=== PATIENT | female | born 1940 | race Caucasian/White ===

== ENCOUNTER 2018-07-05 08:57 | Emergency (ER) ==
--- NOTE | 2018-07-05 09:16 | ED.PDOC ---
General ED Provider: Dr. RICK MOISE Chief Complaint: Fall Stated Complaint: Fell 1 week ago and dealing with discomfort in bilat hips. This AM had increased pain in Lt hip and could not get in shower due to pain. Denies Low back pain or other symmptoms. Time Seen by Physician: 09:10 Mode of Arrival: Walk-In Information Source: Patient Exam Limitations: No limitations Primary Care Provider: EVELYN STINSON Nursing and Triage Documentation Reviewed and Agree: Yes Does patient meet sepsis criteria?: No System Inflammatory Response Syndrome: Not Applicable Sepsis Protocol: For patient's 13 years and over: Temp is 96.8 and below OR 101 and greater Pulse >90 BPM Resp >20/minute Acutely Altered Mental Status Are patient's symptoms suggestive of a new infection, such as: -Pneumonia -Skin, Soft Tissue -Endocarditis -UTI -Bone, Joint Infection -Implantable Device -Acute Abdominal Infection -Wound Infection -Meningitis -Blood Stream Catheter Infection -Unknown Musculoskeletal Complaint Exam - Hip/Pelvis Complaint/Exam Location of Pain: Reports: Right, Left Mechanism of Injury: Reports: Trauma Onset/Duration: 1 week Symptoms Are: Worse Initial Severity: Mild Current Severity: Moderate Location: Reports: Diffuse Character: Reports: Sharp, Aching Aggravating: Reports: Movement Alleviating: Reports: Rest Associated Signs and Symptoms: Denies: Swelling, Redness, Bruising, Fever, Weakness, Dizziness, Syncope, Abdominal pain, Knee pain Related History: Denies: Similar episode Septic Arthritis Risk Factors: Reports: None Rotation: External Pelvis Palpation: Stable Hip/Pelvis Findings: Present: Extremity shortened (slightly with external rotation /increase Lt hip pain with hip flexion and lat trochanteric palpation and pelvic motion) Tenderness: Present: Left, PSIS, Greater Trochanter Range of Motion Limited In: Present: Flexion, Internal rotation NV Bundle Intact Distal to Injury: Yes Differential Diagnoses: Arthritis, Contusion, Fracture, Strain Review of Systems - Review Of Systems Constitutional: Reports: No symptoms Eyes: Reports: No symptoms Ears, Nose, Mouth, Throat: Reports: No symptoms Respiratory: Reports: No symptoms Cardiac: Reports: No symptoms GI: Reports: No symptoms : Reports: No symptoms Musculoskeletal: Reports: No symptoms, Joint pain Skin: Reports: No symptoms Neurological: Reports: No symptoms Endocrine: Reports: No symptoms Hematologic/Lymphatic: Reports: No symptoms All Other Systems: Reviewed and Negative Past Medical History - Past Medical History Endocrine: Reports: DM 2 Cardiovascular: Reports: [place], Hypertension Respiratory: Reports: None Hematological: Reports: None Gastrointestinal: Reports: None Genitourinary: Reports: None Neuro/Psych: Reports: None Musculoskeletal: Reports: Arthritis, Joint Pain Cancer: Reports: None Last Menstrual Period: N/A - Surgical History General Surgical History: Reports: Cholecystectomy, Orthopedic (Knee replacement ) - Family History Family History: Reports: Unknown - Social History Smoking Status: Never smoker Hx Substance Use: No Alcohol Screening: None Physical Exam - Physical Exam Appearance: Ill-appearing, Obese Ill-appearing: None Pain Distress: Moderate Eyes: ALYSSA, EOMI, Conjunctiva clear ENT: Ears normal, Nose normal, Oropharynx normal Neck: Supple Respiratory: Airway patent, Breath sounds clear, Breath sounds equal, Respirations nonlabored Cardiovascular: RRR, Pulses normal, No rub, No murmur GI/: Soft, Nontender, No masses, Bowel sounds normal, No Organomegaly Musculoskeletal: Limited ROM (Lt Hip flexion , Lt foot externally rotated) Skin: Warm, Dry, Normal color Neurological: Sensation intact, Motor intact, Reflexes intact, Cranial nerves intact, Alert, Oriented Psychiatric: Affect appropriate, Mood appropriate Critical Care Note - Critical Care Note Total Time (mins): 0 Course - Course Hematology/Chemistry: 07/05/18 09:40 07/05/18 10:15 Orders, Labs, Meds: Lab Review 07/05/18 07/05/18 07/05/18 09:40 09:40 10:15 WBC 11.90 H RBC 5.14 Hgb 14.7 Hct 45.8 MCV 89.1 MCH 28.6 MCHC 32.1 RDW Coeff of Jaison 14.3 Plt Count 285 Immature Gran % (Auto) 1.2 Neut % (Auto) 74.2 Lymph % (Auto) 16.3 [place] % (Auto) 5.8 Eos % (Auto) 2.1 Baso % (Auto) 0.4 Immature Gran # (Auto) 0.1 Neut # (Auto) 8.8 H Lymph # (Auto) 1.9 [place] # (Auto) 0.7 Eos # (Auto) 0.3 Baso # (Auto) 0.1 Clumped Platelets 1 Anisocytosis Not present RBC Morph Comment Normal Sodium Cancelled 143.0 Potassium Cancelled 4.14 Chloride Cancelled 103.2 Carbon Dioxide Cancelled 30.8 H Anion Gap Cancelled 13.14 BUN Cancelled 15.9 Creatinine Cancelled 0.85 Estimated GFR (MDRD) Cancelled 65.00 BUN/Creatinine Ratio Cancelled 18.70 Glucose Cancelled 118.4 H Calcium Cancelled 9.63 Total Bilirubin Cancelled 0.33 AST Cancelled 19.0 ALT Cancelled 12.9 Alkaline Phosphatase Cancelled 84.1 Total Protein Cancelled 7.49 Albumin Cancelled 4.16 Globulin Cancelled 3.33 Albumin/Globulin Ratio Cancelled 1.24 Orders Category Date Time Status EKG-(ED ONLY) Stat CARDIO 07/05/18 09:29 Completed CBC W/ AUTO DIFF Stat LAB 07/05/18 09:40 Completed COMPREHENSIVE METABOLIC PANEL Routine LAB 07/05/18 10:15 Completed RBC MORPHOLOGY Stat LAB 07/05/18 09:40 Completed UA [URINALYSIS C & S IF INDICATED] Stat LAB 07/05/18 11:43 Uncollected Ketorolac Tromethamine [Toradol] MEDS 07/05/18 11:17 Discontinued 30 mg IM ONCE STA CT PELVIS W/O CONTRAST Stat RADS 07/05/18 09:22 Completed Medications Discontinued Medications Generic Name Dose Route Start Last Admin Trade Name Freq PRN Reason Stop Dose Admin Ketorolac Tromethamine 30 mg 07/05/18 11:17 07/05/18 11:38 Toradol IM 07/05/18 11:18 30 mg ONCE STA Administration Vital Signs: Temp Pulse Resp BP Pulse Ox 07/05/18 08:57 97.0 F L 67 18 153/53 H 98 Departure - Departure Time of Disposition: 11:45 Disposition: HOME SELF-CARE Discharge Problem: Contusion of hip, left Instructions: Hip Pain (ED) Condition: Good Pt referred to PMD for follow-up: Yes (1 wk) IPMP verified?: No Additional Instructions: Apply ice to area of discomfort in lt hip for 20-30 min three times daily Take Ibuprofen for pain See PCP next week Use walker and cane for assisted ambulation Prescriptions: Ibuprofen 600 mg PO QID PRN #30 tablet PRN Reason: Hip pain Allergies/Adverse Reactions: Allergies morphine Adverse Reaction (Verified 04/23/16 16:14) Home Medications: Ambulatory Orders Isosorbide Mononitrate [Isosorbide Mononitrate ER] 60 mg PO DAILY 02/22/14 Losartan/Hydrochlorothiazide [Losartan-Hctz 100-12.5 mg Tab] 1 each PO DAILY Pravastatin Sodium [Pravachol] 40 mg PO BEDTIME 03/14/14 Amlodipine Besylate [Norvasc] 5 mg PO BID #60 tablet 04/11/14 Aspirin [Aspirin EC] 81 mg PO DAILYWM 10/09/14 Oxybutynin Chloride [Ditropan Xl] 5 mg PO DAILY 10/09/14 Hydralazine HCl 25 mg PO Q12H #60 tablet 04/28/16 Nitroglycerin [Nitrostat] 0.4 mg SL Q5MIN X 3 DOSES PRN #60 tab.subl 04/28/16 Bimatoprost Opth [Lumigan 0.03%] 0.01 drop PO DAILY 07/05/18 Brinzolamide/Brimonidine Tart [Simbrinza 1%-0.2% Eye Drops] 1 drop OP DAILY 12/14 Ibuprofen 600 mg PO QID PRN #30 tablet 07/05/18 Insulin NPH Human Isophane [Novolin N] 50 units SUBCUT BID 07/05/18 Disposition Discussed With: Patient, Family
[2018-07-05 09:22] VITALS: BP 153/53; TEMP 97; BMI 42.0
--- NOTE | 2018-07-05 10:17 | CT ---
EXAM: CT of the pelvis without contrast History: Left hip pain and trauma. Comparison: CT abdomen pelvis 04/30/2014 Technique: Multiplanar CT images through the pelvis were obtained without the administration of IV c ontrast Findings: Atherosclerotic vascular calcifications. Bladder is moderate to severely distended. Ther e is no bladder wall thickening. No pelvic fluid. Moderate stool within the rectum. No acute fracture or dislocation. Mild to moderate narrowing of bilateral hip joints. Surrounding s oft tissues demonstrate no acute findings. Impression: 1. No acute osseous abnormality. 2. 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 3. Moderate to severe bladder distension
[2018-07-05] MEDS: TORADOL IM STA (11:38)
== END 2018-07-05 12:15 | disposition home or self-care (01) ==
LOC: ED 08:57
DX: S70.02XA Contusion of left hip, initial encounter (principal); W19.XXXA Unspecified fall, initial encounter; E11.9 Type 2 diabetes mellitus without complications; I25.2 Old myocardial infarction; I10 Essential (primary) hypertension
CPT/HCPCS: 36415; 80053; 85008; 85025; 93005; 93010; 96372; 99283

== ENCOUNTER 2018-08-14 20:44 | Outpatient (CLI) | END 2018-08-14 20:45 | disposition home or self-care (01) | LOC: NONPT 20:44 | PROVIDERS: ATTEND Internal Medicine | DX: E11.9 Type 2 diabetes mellitus without complications (principal) | CPT/HCPCS: 83036 ==

== ENCOUNTER 2018-11-10 11:32 | Outpatient (CLI) ==
[2018-11-10 18:36] VITALS: BMI 39.5
== END 2018-11-10 11:40 | disposition critical access hospital (66) ==
LOC: AMBL 11:32
PROVIDERS: ATTEND Emergency Medicine
DX: R73.9 Hyperglycemia, unspecified (principal); R11.10 Vomiting, unspecified; R53.1 Weakness; R68.89 Other general symptoms and signs; R00.0 Tachycardia, unspecified

== ENCOUNTER 2018-11-10 11:44 | Inpatient (IN) ==
--- NOTE | 2018-11-10 13:01 | ED.PDOC ---
General ED Provider: Dr. RICK MOISE Chief Complaint: Non-specific Complaint Stated Complaint: Nausea and vomiting/ Vomiting since last evening after eatting baked chicken. Has not vomited recently.Also complains of chronic diarrhea and coughing episodes daily in the AM. Glucose elevated 290 Time Seen by Physician: 12:30 Mode of Arrival: Stretcher Information Source: Patient Primary Care Provider: EVELYN BURRELL Nursing and Triage Documentation Reviewed and Agree: Yes Does patient meet sepsis criteria?: No System Inflammatory Response Syndrome: Not Applicable Sepsis Protocol: For patient's 13 years and over: Temp is 96.8 and below OR 101 and greater Pulse >90 BPM Resp >20/minute Acutely Altered Mental Status Are patient's symptoms suggestive of a new infection, such as: -Pneumonia -Skin, Soft Tissue -Endocarditis -UTI -Bone, Joint Infection -Implantable Device -Acute Abdominal Infection -Wound Infection -Meningitis -Blood Stream Catheter Infection -Unknown GI Complaint Exam - Vomiting/Diarrhea Complaint/Exam Onset/Duration: last night Symptoms Are: Resolved Episodes of Vomiting over last 24 Hours: 6 Episodes of Diarrhea Over Last 24 Hours: 2 Initial Severity: Moderate Current Severity: Mild Character of Vomiting: Reports: Retching Character of Diarrhea: Reports: Watery Aggravating: Reports: Food Alleviating: Reports: None Associated Signs and Symptoms: Reports: Light-headedness, Cramping Related History: Reports: Similar episode Review of Systems - Review Of Systems Constitutional: Reports: No symptoms Eyes: Reports: No symptoms Ears, Nose, Mouth, Throat: Reports: No symptoms Respiratory: Reports: No symptoms Cardiac: Reports: No symptoms GI: Reports: No symptoms, Diarrhea, Nausea, Vomiting : Reports: No symptoms Musculoskeletal: Reports: No symptoms Skin: Reports: No symptoms Neurological: Reports: No symptoms Endocrine: Reports: No symptoms Hematologic/Lymphatic: Reports: No symptoms All Other Systems: Reviewed and Negative Past Medical History - Past Medical History Endocrine: Reports: DM 2 Cardiovascular: Reports: [place], Hypertension Respiratory: Reports: None Hematological: Reports: None Gastrointestinal: Reports: None Genitourinary: Reports: None Neuro/Psych: Reports: None Musculoskeletal: Reports: Arthritis, Joint Pain Cancer: Reports: None Last Menstrual Period: UNKNOWN - Surgical History General Surgical History: Reports: Cholecystectomy, Orthopedic (Knee replacement ) - Family History Family History: Reports: Unknown - Social History Smoking Status: Never smoker Hx Substance Use: No Alcohol Screening: None Physical Exam - Physical Exam Appearance: Ill-appearing, Obese Ill-appearing: Mild Pain Distress: None Eyes: ALYSSA, EOMI, Conjunctiva clear ENT: Ears normal, Nose normal, Oropharynx normal Neck: Supple Respiratory: Breath sounds diminished Cardiovascular: RRR, Pulses normal, No rub, No murmur GI/: Soft, Nontender, Bowel sounds normal, No Organomegaly Musculoskeletal: Normal strength, ROM intact, No edema, No calf tenderness Skin: Warm, Dry, Normal color Neurological: Sensation intact, Motor intact, Reflexes intact, Cranial nerves intact, Alert, Oriented Psychiatric: Affect appropriate Physician Notification - Case Discussed Physician Notified: dr burrell Time of Notification: 17:45 (discu case-admit) Critical Care Note - Critical Care Note Total Time (mins): 0 Course - Course Hematology/Chemistry: 11/10/18 12:59 11/10/18 12:59 Orders, Labs, Meds: Lab Review 11/10/18 11/10/18 11/10/18 12:59 12:59 12:59 WBC 24.65 H RBC 4.67 Hgb 13.4 Hct 41.2 MCV 88.2 MCH 28.7 MCHC 32.5 RDW Coeff of Jaison 14.0 Plt Count 291 Immature Gran % (Auto) 0.6 Neut % (Auto) 91.2 Lymph % (Auto) 3.9 L [place] % (Auto) 4.1 Eos % (Auto) 0.0 Baso % (Auto) 0.2 Immature Gran # (Auto) 0.1 Neut # (Auto) 22.5 H Lymph # (Auto) 1.0 [place] # (Auto) 1.0 Eos # (Auto) 0.0 Baso # (Auto) 0.1 Sodium 139.4 Potassium 3.73 Chloride 105.9 Carbon Dioxide 24.9 Anion Gap 12.33 BUN 18.7 H Creatinine 0.76 Estimated GFR (MDRD) 73.00 BUN/Creatinine Ratio 24.60 Glucose 278.1 H Lactic Acid Calcium 8.81 Total Bilirubin 0.59 AST 24.9 ALT 15.3 Alkaline Phosphatase 66.1 Troponin I 0.032 NT-Pro-B Natriuret Pep 1540.000 H Total Protein 6.23 L Albumin 3.49 L Globulin 2.74 Albumin/Globulin Ratio 1.27 Lipase 25.8 Procalcitonin 3.93 Urine Color Urine Clarity Urine pH Ur Specific [place] Urine Protein Urine Glucose (UA) Urine Ketones Urine Blood Urine Nitrite Urine Bilirubin Urine Urobilinogen Ur Leukocyte Esterase Urine Microscopic RBC Urine Microscopic WBC Ur Squamous Epith Cells Ur Renal Epithelial Cell Amorphous Sediment Urine Bacteria 11/10/18 11/10/18 13:38 15:56 WBC RBC Hgb Hct MCV MCH MCHC RDW Coeff of Jaison Plt Count Immature Gran % (Auto) Neut % (Auto) Lymph % (Auto) [place] % (Auto) Eos % (Auto) Baso % (Auto) Immature Gran # (Auto) Neut # (Auto) Lymph # (Auto) [place] # (Auto) Eos # (Auto) Baso # (Auto) Sodium Potassium Chloride Carbon Dioxide Anion Gap BUN Creatinine Estimated GFR (MDRD) BUN/Creatinine Ratio Glucose Lactic Acid 1.99 Calcium Total Bilirubin AST ALT Alkaline Phosphatase Troponin I NT-Pro-B Natriuret Pep Total Protein Albumin Globulin Albumin/Globulin Ratio Lipase Procalcitonin Urine Color Yellow Urine Clarity Cloudy Urine pH 5.0 Ur Specific [place] 1.020 Urine Protein 1+ Urine Glucose (UA) 1+ Urine Ketones 2+ Urine Blood Negative Urine Nitrite Positive Urine Bilirubin Negative Urine Urobilinogen 0.2 Ur Leukocyte Esterase Trace Urine Microscopic RBC 5-10 Urine Microscopic WBC 5-10 Ur Squamous Epith Cells 0-2 Ur Renal Epithelial Cell 0-2 Amorphous Sediment 2+ Urine Bacteria 2+ Orders Category Date Time Status ADMIT PATIENT INPATIENT .TO [facility] (MONITORED BED) ADMISSION 11/10/18 17: 55 Active ABG DRAW REQUEST Stat CARDIO 11/10/18 17:41 Ordered EKG-(ED ONLY) Stat CARDIO 11/10/18 12:39 Completed NEBULIZER TREATMENT Routine CARDIO 11/10/18 17:45 Ordered OXYGEN Routine CARDIO 11/10/18 17:55 Ordered ACTIVITY .BR with BRP CARE 11/10/18 17:55 Ordered BLOOD GLUCOSE MONITORING 0630,1100,1700,2100 CARE 11/10/18 17:57 Ordered C-DIFF MONITORING (NURSING) BID CARE 11/10/18 17:48 Ordered GIVE HS SNACK 2100 CARE 11/10/18 17:57 Ordered INTAKE & OUTPUT Q8HR CARE 11/10/18 17:54 Ordered INTAKE & OUTPUT Q8HR CARE 11/10/18 17:55 Ordered TELEMETRY MONITORING TELE CARE 11/10/18 17:55 Active VITAL SIGNS Q4HR CARE 11/10/18 17:55 Ordered ADA 1800 JUDI. DIET DIETARY 11/10/18 Dinner Ordered HS SNACK DIETARY 11/10/18 Dinner Ordered IV [ED IV/MEDIPORT/POWERPORT] .ONCE EMERGENCY 11/10/18 12:39 Active ABG Stat LAB 11/10/18 17:41 Ordered BLOOD CULTURE (ED ONLY) Stat LAB 11/10/18 15:56 Received C. DIFFICILE Routine LAB 11/10/18 17:47 Uncollected CBC W/ AUTO DIFF DAILY@0600 LAB 11/11/18 06:00 Ordered CBC W/ AUTO DIFF DAILY@0600 LAB 11/12/18 06:00 Ordered CBC W/ AUTO DIFF Stat LAB 11/10/18 12:59 Completed CMP [COMPREHENSIVE METABOLIC PANEL] Stat LAB 11/10/18 12:59 Completed COMPREHENSIVE METABOLIC PANEL DAILY@0600 LAB 11/11/18 06:00 Ordered COMPREHENSIVE METABOLIC PANEL DAILY@0600 LAB 11/12/18 06:00 Ordered LACTIC ACID Stat LAB 11/10/18 15:56 Completed LIPASE Stat LAB 11/10/18 12:59 Completed NT-PROBNP Stat LAB 11/10/18 12:59 Completed PROCALCITONIN Stat LAB 11/10/18 12:59 Completed SPUTUM CULTURE Stat LAB 11/10/18 17:51 Uncollected TROPONIN I Stat LAB 11/10/18 12:59 Completed UA [URINALYSIS C & S IF INDICATED] Stat LAB 11/10/18 13:38 Completed URINE CULTURE Stat LAB 11/10/18 13:46 Received 0.9 % Sodium Chloride [Saline Flush] MEDS 11/10/18 12:39 Ordered 1 syr IVF PRN PRN Acetaminophen [Tylenol] MEDS 11/10/18 17:55 Ordered 650 mg PO Q4H PRN Amlodipine Besylate [Norvasc] MEDS 11/10/18 21:00 Ordered 5 mg PO BID Aspirin [Aspirin EC] MEDS 11/11/18 08:00 Ordered 81 mg PO DAILYWM Aztreonam [Azactam] 1 gm MEDS 11/10/18 21:00 Ordered 0.9 % Sodium Chloride [Sodium Chloride] 50 ml IV Q8HR Aztreonam [Azactam] 2 gm MEDS 11/10/18 17:42 Ordered 0.9 % Sodium Chloride [Sodium Chloride] 100 ml IV ONCE Bimatoprost Opth [Lumigan 0.03%] MEDS 11/10/18 21:00 Ordered 0.01 drop OP BEDTIME Brinzolamide/Brimonidine Tart [Simbrinza 1%-0.2% Eye MEDS 11/10/18 21:00 Ordered Drops] 1 drop OP TID Ceftriaxone Sodium [Rocephin] MEDS 11/10/18 16:50 Discontinued 1 gm .ROUTE .STK-MED ONE Ceftriaxone Sodium [Rocephin] 1 gm MEDS 11/11/18 09:00 Ordered 0.9 % Sodium Chloride [Sodium Chloride] 50 ml IV DAILY Ceftriaxone Sodium [Rocephin] 1 gm MEDS 11/10/18 16:46 Discontinued 0.9 % Sodium Chloride [Sodium Chloride] 50 ml IV ONCE Guaifenesin [Mucinex] MEDS 11/10/18 17:52 Stat 600 mg PO ONCE STA Hydralazine HCl [Hydralazine HCl] MEDS 11/10/18 18:00 Ordered 25 mg PO Q12H Ibuprofen [Motrin] MEDS 11/10/18 18:00 Ordered 600 mg PO QID PRN Ipratropium/Albuterol Neb [Duoneb] MEDS 11/10/18 18:00 Ordered 1 vial NEB RTQ6H Isosorbide Mononitrate [Isosorbide Mononitrate ER] MEDS 11/11/18 09:00 Ordered 60 mg PO DAILY Lisinopril/Hydrochlorothiazide [Lisinopril-Hctz 10-12.5 MEDS 11/11/18 09:00 Ordered mg Tab] 1 each PO DAILY Losartan/Hydrochlorothiazide [Losartan-Hctz 100-12.5 mg MEDS 11/11/18 09:00 Ordered Tab] 1 each PO DAILY NPH, Human Insulin Isophane [Humulin N] MEDS 11/10/18 21:00 Ordered 50 units SUBCUT BID Nitroglycerin [Nitrostat] MEDS 11/10/18 18:00 Ordered 0.4 mg SL Q5MIN X 3 DOSES PRN Ondansetron HCl/Pf [Zofran 4 mg/2 ml] MEDS 11/10/18 17:45 Discontinued 4 mg IVP ONCE STA Ondansetron HCl/Pf [Zofran 4 mg/2 ml] MEDS 11/10/18 17:55 Ordered 4 mg IVP Q6H PRN Oxybutynin Chloride [Ditropan Xl] MEDS 11/11/18 09:00 Ordered 5 mg PO DAILY Potassium Chloride in 0.9%NaCl [Sodium Chloride 0.9%- MEDS 11/10/18 18:00 Ordered KCl 20 Meq] 1,000 ml IV 70 mls/hr Pravastatin Sodium [Pravachol] MEDS 11/10/18 21:00 Ordered 40 mg PO BEDTIME RESUSCITATION STATUS Routine OTHERS 11/10/18 17:54 Ordered CHEST, 2 VIEWS PA & LAT Stat RADS 11/10/18 12:40 Completed Medications Generic Name Dose Route Start Last Admin Trade Name Freq PRN Reason Stop Dose Admin Acetaminophen 650 mg 11/10/18 17:55 Tylenol PO Q4H PRN Temp above 101 deg or pain Albuterol/Ipratropium 1 vial 11/10/18 18:00 Duoneb NEB RTQ6H SUKHJINDER Amlodipine Besylate 5 mg 11/10/18 21:00 Norvasc PO BID SUKHJINDER Aspirin 81 mg 11/11/18 08:00 Aspirin Ec PO DAILYWM SUKHJINDER Bimatoprost 0.01 drop 11/10/18 21:00 Lumigan 0.03% OP BEDTIME SUKHJINDER Aztreonam 2 gm/ Sodium 100 mls @ 100 mls/hr 11/10/18 17:42 Chloride IV 11/10/18 18:41 ONCE STA Ceftriaxone Sodium 1 gm/ 50 mls @ 75 mls/hr 11/11/18 09:00 Sodium Chloride IV 11/14/18 08:59 DAILY SUKHJINDER Potassium Chloride/Sodium Chloride 1,000 mls @ 70 mls/hr 11/10/18 18:00 Sodium Chloride 0.9%-Kcl 20 Meq IV .[id number] SUKHJINDER Aztreonam 1 gm/ Sodium 50 mls @ 75 mls/hr 11/10/18 21:00 Chloride IV 11/13/18 20:59 Q8HR SUKHJINDER Ibuprofen 600 mg 11/10/18 18:00 Motrin PO QID PRN Fever >101 Insulin Human NPH unit 11/10/18 21:00 Humulin N SUBCUT BID SUKHJINDER Nitroglycerin 0.4 mg 11/10/18 18:00 Nitrostat SL Q5MIN X 3 DOSES PRN chest pain Non-Formulary Medication 1 drop 11/10/18 21:00 Brinzolamide/Brimonidine Tart [Simbrinza 1%-0.2% Eye Drops] OP TID SUKHJINDER Non-Formulary Medication 25 mg 11/10/18 18:00 Hydralazine Hcl [Hydralazine Hcl] PO Q12H SUKHJINDER Non-Formulary Medication 60 mg 11/11/18 09:00 Isosorbide Mononitrate [Isosorbide Mononitrate Er] PO DAILY SUKHJINDER Non-Formulary Medication 1 each 11/11/18 09:00 Lisinopril/Hydrochlorothiazide [Lisinopril-Hctz 10-12.5 Mg Tab] PO DAILY SUKHJINDER Non-Formulary Medication 1 each 11/11/18 09:00 Losartan/Hydrochlorothiazide [Losartan-Hctz 100-12.5 Mg Tab] PO DAILY SUKHJINDER Ondansetron HCl 4 mg 11/10/18 17:55 Zofran 4 Mg/2 Ml IVP Q6H PRN Nausea or vomiting Oxybutynin Chloride 5 mg 11/11/18 09:00 Ditropan Xl PO DAILY [facility] Pravastatin Sodium 40 mg 11/10/18 21:00 Pravachol PO BEDTIME SUKHJINDER Sodium Chloride 1 syr 11/10/18 12:39 11/10/18 16:59 Saline Flush IVF 1 syr PRN PRN Administration To flush IV Discontinued Medications Generic Name Dose Route Start Last Admin Trade Name Freq PRN Reason Stop Dose Admin Guaifenesin 600 mg 11/10/18 17:52 Mucinex PO 11/10/18 17:53 ONCE STA Ceftriaxone Sodium 1 gm/ 50 mls @ 75 mls/hr 11/10/18 16:46 11/10/18 16:58 Sodium Chloride IV 11/10/18 17:25 75 mls/hr ONCE STA Administration Ondansetron HCl 4 mg 11/10/18 17:45 Zofran 4 Mg/2 Ml IVP 11/10/18 17:46 ONCE STA Vital Signs: Temp Pulse Resp BP Pulse Ox 11/10/18 11:46 99.0 F 88 20 128/56 L 93 L Departure - Departure Time of Disposition: 17:45 Disposition: HOME SELF-CARE Discharge Problem: Vomiting, UTI (urinary tract infection), RLL pneumonia, Diabetes mellitus Condition: Fair Pt referred to PMD for follow-up: No IPMP verified?: No Allergies/Adverse Reactions: Allergies morphine Adverse Reaction (Verified 11/10/18 11:54) Home Medications: Ambulatory Orders Isosorbide Mononitrate [Isosorbide Mononitrate ER] 60 mg PO DAILY 02/22/14 Losartan/Hydrochlorothiazide [Losartan-Hctz 100-12.5 mg Tab] 1 each PO DAILY Pravastatin Sodium [Pravachol] 40 mg PO BEDTIME 03/14/14 Amlodipine Besylate [Norvasc] 5 mg PO BID #60 tablet 04/11/14 Aspirin [Aspirin EC] 81 mg PO DAILYWM 10/09/14 Oxybutynin Chloride [Ditropan Xl] 5 mg PO DAILY 10/09/14 Hydralazine HCl 25 mg PO Q12H #60 tablet 04/28/16 Nitroglycerin [Nitrostat] 0.4 mg SL Q5MIN X 3 DOSES PRN #60 tab.subl 04/28/16 Bimatoprost Opth [Lumigan 0.03%] 0.01 drop OP BEDTIME 07/05/18 Brinzolamide/Brimonidine Tart [Simbrinza 1%-0.2% Eye Drops] 1 drop OP TID Ibuprofen 600 mg PO QID PRN #30 tablet 07/05/18 Insulin NPH Human Isophane [Novolin N] 50 units SUBCUT BID 07/05/18 Lisinopril/Hydrochlorothiazide [Lisinopril-Hctz 10-12.5 mg Tab] 1 each PO DAILY 11/10/18 Disposition Discussed With: Patient, Family
--- NOTE | 2018-11-10 13:42 | DI ---
EXAM: Two view(s) chest. HISTORY: Shortness of breath. COMPARISON: Congestion. TECHNIQUE: Two view(s) of the chest. FINDINGS: There is a left-sided dual lead cardiac pacer. A hiatal hernia is noted. Lungs: The lung voulmes are normal. Interstitial prominence is seen bilaterally. There is a focal consolidation in the right lower l obe. There are no suspicious nodules. There is no pneumothorax. Cardiovascular: The heart is enlarged. The pulmonary vasculature is within normal limits.. The aorta is unremarkable. Cristela/Mediastinum: Normal. Osseous structures. Normal for age. IMPRESSION: 1. Right lower lobe consolidation, likely due to pneumonia. Correlate with history and symptoms. 2. Cardiomegaly. 3. Mild interstitial prominence which may be due to edema.
[2018-11-10] MEDS ORDERED: ROCEPHIN 1 GM in SODIUM CHLORIDE 50 ML IV STA (16:46)
[2018-11-10] MEDS ORDERED: ROCEPHIN ONE (16:50)
[2018-11-10] MEDS ORDERED: AZACTAM 2 GM in SODIUM CHLORIDE 100 ML IV STA (17:42)
[2018-11-10] MEDS ORDERED: ZOFRAN 4 MG/2 ML IVP STA (17:45)
[2018-11-10] MEDS ORDERED: MUCINEX PO STA (17:52)
[2018-11-10] MEDS ORDERED: TYLENOL PO PRN (17:55)
[2018-11-10] MEDS ORDERED: ZOFRAN 4 MG/2 ML IVP PRN (17:55)
[2018-11-10] MEDS ORDERED: NITROSTAT SL PRN (18:00)
[2018-11-10] MEDS ORDERED: MOTRIN PO PRN (18:00)
[2018-11-10] MEDS ORDERED: SODIUM CHLORIDE 0.9%-KCL 20 MEQ 1,000 ML IV SCH ×2 (18:00→20:00)
[2018-11-10] MEDS ORDERED: APRESOLINE ONE ×2 (18:23→18:24)
[2018-11-10] MEDS ORDERED: AZACTAM ONE ×2 (18:23→21:01)
[2018-11-10 18:36] VITALS: BMI 39.5
[2018-11-10] MEDS: NON-FORMULARY MEDICATION (Hydralazine Hcl [Hydralazine Hcl] 25 MG) PO SCH (18:36)
[2018-11-10] MEDS: DUONEB NEB SCH ×2 (19:01→22:55)
[2018-11-10] MEDS ORDERED: LASIX IVP STA ×2 (19:29→19:34)
[2018-11-10] MEDS ORDERED: DECADRON 4 MG/ML SDV IM STA (19:46)
[2018-11-10] MEDS ORDERED: XANAX PO PRN (19:51)
[2018-11-10] MEDS ORDERED: PHENERGAN WITH CODEINE 6.25/10 MG/5 ML PO PRN (20:00)
[2018-11-10] MEDS ORDERED: BRINZOLAMIDE OP SCH (21:00)
[2018-11-10] MEDS ORDERED: LUMIGAN 0.03% OP SCH (21:00)
[2018-11-10] MEDS ORDERED: [UNRECOGNIZED DRUG - OTHER] OP SCH (21:00)
[2018-11-10] MEDS ORDERED: BRIMONIDINE TART OP SCH (21:00)
[2018-11-10] MEDS: AZACTAM 1 GM in SODIUM CHLORIDE 50 ML IV SCH (21:10)
[2018-11-10] MEDS: NORVASC PO SCH (21:10)
[2018-11-10] MEDS: PRAVACHOL PO SCH (21:11)
[2018-11-11] MEDS: DUONEB NEB SCH ×4 (04:40→22:45)
[2018-11-11] MEDS ORDERED: AZACTAM ONE (04:49)
[2018-11-11] MEDS: AZACTAM 1 GM in SODIUM CHLORIDE 50 ML IV SCH ×3 (04:51→20:28)
[2018-11-11] MEDS: HUMULIN R SUBCUT PRN ×4 (05:58→20:33)
[2018-11-11] MEDS: LASIX IVP SCH ×2 (06:01→17:39)
[2018-11-11] MEDS ORDERED: APRESOLINE ONE (06:31)
[2018-11-11] MEDS: NON-FORMULARY MEDICATION (Hydralazine Hcl [Hydralazine Hcl] 25 MG) PO SCH (06:33)
[2018-11-11] MEDS: HUMULIN N SUBCUT SCH ×4 (08:25→21:26)
[2018-11-11] MEDS: ROCEPHIN 1 GM in SODIUM CHLORIDE 50 ML IV SCH (08:58)
[2018-11-11] MEDS: COZAAR PO SCH (08:59)
[2018-11-11] MEDS: BRIMONIDINE TART OP SCH ×4 (08:59→20:27)
[2018-11-11] MEDS: BRINZOLAMIDE OP SCH ×4 (08:59→20:27)
[2018-11-11] MEDS: HYDROCHLOROTHIAZIDE PO SCH (08:59)
[2018-11-11] MEDS: [UNRECOGNIZED DRUG - OTHER] OP SCH ×4 (08:59→20:27)
[2018-11-11] MEDS: ASPIRIN EC PO SCH (08:59)
[2018-11-11] MEDS: IMDUR PO SCH (09:00)
[2018-11-11] MEDS: NORVASC PO SCH ×2 (09:00→20:31)
[2018-11-11] MEDS ORDERED: NON-FORMULARY MEDICATION (Isosorbide Mononitrate [Isosorbide Mononitrate Er] 60 MG) PO SCH (09:00)
[2018-11-11] MEDS ORDERED: NON-FORMULARY MEDICATION (Losartan/Hydrochlorothiazide [Losartan-Hctz 100-12.5 Mg Tab] 1 E PO SCH (09:00)
[2018-11-11] MEDS: APRESOLINE PO SCH ×2 (09:00→21:19)
[2018-11-11] MEDS: DITROPAN XL PO SCH (09:00)
--- NOTE | 2018-11-11 09:59 | DI ---
EXAM: Single view chest. HISTORY: Followup congestive heart failure COMPARISON: Exam from previous day. FINDINGS: The heart is normal in size. Again mildly enlarged. Left chest pacer device is again seen . Calcified plaques overlie the aorta. Right lung patchy airspace opacities are again seen, not sig nificantly changed. No evidence of pleural effusion or pneumothorax is seen. Left apical calcified granuloma is seen. Degenerative changes of the shoulder girdles are present. A moderate to large si ze hiatal hernia is suggested. IMPRESSION: Unchanged right lung patchy airspace opacities. Differential includes asymmetric pulmonary edema [place] pneumonia. Mild cardiomegaly. Moderate to large sized hiatal hernia suggested.
[2018-11-11] MEDS ORDERED: DECADRON 4 MG/ML SDV IVP ONE (12:45)
[2018-11-11] MEDS: LUMIGAN 0.03% OP SCH (20:27)
[2018-11-11] MEDS: PRAVACHOL PO SCH (20:31)
[2018-11-12] MEDS: DUONEB NEB SCH ×4 (05:05→23:12)
[2018-11-12] MEDS: AZACTAM 1 GM in SODIUM CHLORIDE 50 ML IV SCH ×4 (05:31→21:00)
[2018-11-12] MEDS: HUMULIN R SUBCUT PRN ×4 (06:37→21:01)
[2018-11-12] MEDS: APRESOLINE PO SCH ×2 (06:38→20:58)
[2018-11-12] MEDS: HUMULIN N SUBCUT SCH ×3 (06:50→21:04)
[2018-11-12] MEDS: LASIX IVP SCH ×2 (07:44→17:24)
[2018-11-12] MEDS: BRIMONIDINE TART OP SCH ×3 (08:41→21:00)
[2018-11-12] MEDS: IMDUR PO SCH (08:41)
[2018-11-12] MEDS: HYDROCHLOROTHIAZIDE PO SCH (08:41)
[2018-11-12] MEDS: [UNRECOGNIZED DRUG - OTHER] OP SCH ×3 (08:41→21:00)
[2018-11-12] MEDS: BRINZOLAMIDE OP SCH ×3 (08:41→21:00)
[2018-11-12] MEDS: DITROPAN XL PO SCH (08:42)
[2018-11-12] MEDS: ASPIRIN EC PO SCH (08:42)
[2018-11-12] MEDS: NORVASC PO SCH ×2 (08:42→08:56)
[2018-11-12] MEDS: COZAAR PO SCH (08:42)
[2018-11-12] MEDS: ROCEPHIN 1 GM in SODIUM CHLORIDE 50 ML IV SCH (08:45)
[2018-11-12] MEDS ORDERED: CITRATE OF MAGNESIA PO STA (08:51)
--- NOTE | 2018-11-12 11:37 | HP ---
DATE OF SERVICE: 11/10/18 HISTORY OF PRESENT ILLNESS: 78-year-old white female came to the emergency room with complaint of having diarrhea, vomiting and nausea for the past several days. On further questioning , the patient had cough and congestion for the past 6 to 7 days She denied any usual shortness of breath. No PND. History was not consistent with PND or orthopnea. She did not have any chest pain. Diarrhea was liquid. Appetite was poor. REVIEW OF SYSTEMS: CONSTITUTIONAL: Positive for fatigue and weakness. No night sweats. No malaise, lethargy. No fever or chills. HEENT: Eyes: No visual changes. No eye pain. No eye discharge. ENT: No runny nose. No epistaxis. No sinus pain. No sore throat. No odynophagia. No congestion. RESPIRATORY: Positive for dry cough for the past several days with whitish sputum off and on. No hemoptysis. CARDIOVASCULAR: Positive for shortness of breath on exertion as usual. No angina symptoms. No CHF symptoms. No atypical chest pain for CAD. No palpitations. No PND. No orthopnea. GASTROINTESTINAL: The patient has nausea and has vomiting two to three times a day with diarrhea three to four times a day for the past several days. No abdominal pain. No diarrhea or constipation. No hematemesis. No hematochezia. GENITOURINARY: No urgency. No frequency. No dysuria. No hematuria. No obstructive symptoms. No discharge. No pain. No significant abnormal bleeding. MUSCULOSKELETAL: No musculoskeletal pain; no joint swelling. NEUROLOGICAL: No headache. No neck pain. No syncope. No seizures. No dizziness. PSYCHIATRIC: Not anxious. No depression. No suicidal thoughts. No homicidal thoughts. SKIN: No rash. No lesions. No wounds. ENDOCRINE: No unexplained weight loss. No weight gain. HEMATOLOGIC/LYMPHATIC: No anemia. No purpura. No petechiae. No prolonged or excessive bleeding. No palpable lymph nodes. ALLERGIES: MORPHINE PERSONAL/FAMILY/SOCIAL HISTORY: The patient is , lives with and needs help for all activities of daily living. Mostly she is in the wheelchair, able to walk at home with some help. The patient is kind of slow mentally. The patient is nonsmoker, no alcohol abuse. PAST MEDICAL/SURGICAL PROBLEMS: Pacemaker placement Coronary artery disease Hypertension Dyslipidemia Diabetes mellitus Obesity, morbid PHYSICAL EXAMINATION: VITAL SIGNS: Temperature 97.5, pulse 63, respiratory rate 18, BP 128/56, pulse ox 95%. Oriented to time, place and person. Skin turgor is normal. HEENT: Head normocephalic, atraumatic. Eyes: Extraocular muscles are intact. Pupils are equal, round and reactive to light and accommodation. Sclera nonicteric. Ears: No lesions. Nose appeared normal. Throat: No exudate or erythema. NECK: Supple. No JVD, no carotid bruit. No lymphadenopathy. LUNGS: Decreased breath sounds with maybe mild expiratory wheeze. Good air entry. Percussion note normal. Chest symmetrical. HEART: PMI not palpable on auscultation. S1, S2, no S3. No murmurs. No cyanosis or clubbing. No ascites. Pulses: Dorsalis pedis and posterior tibial pulses +1 bilaterally. ABDOMEN: Soft. Nontender. Bowel sounds active. No CVA tenderness. No mass felt. EXTREMITIES: Trace pedal edema. Full range of motion of all extremities, equal. NEUROLOGIC: No focal deficit. Cranial nerves II through XII are grossly intact. No headache, no double vision or headache. SKIN: Not dry. Intact. Turgor - normal. LYMPHATIC: No palpable lymph nodes/no lymphedema. MUSCULOSKELETAL: Normal joints with no swelling. Muscle tone is normal. LABS: WBC count 24,000, hemoglobin 13.4, hematocrit 41. Creatinine 0.7, BUN 18, potassium 3.7, glucose 278. GFR 73. Chest x-ray showed possibility of atelectasis vs pneumonia early with interstitial edema/pulmonary edema type of findings. Arterial blood gases: P02 55, pc02 35, pH 7.41 with 89% saturation on room air. Pro BNP elevated. Sepsis protocol, procalcitonin early sepsis. UA abnormal. Positive for leukocyte esterase. ASSESSMENT: 1. LEUKOCYTOSIS WITH SIGNS OF EARLY SEPSIS LIKELY UROSEPSIS WITH ABNORMAL UA. 2. ATELECTASIS VS EARLY PNEUMONIA WITH HISTORY OF COUGHING. 3. RESPIRATORY FAILURE, A COMBINATION OF EARLY PNEUMONIA WITH CONGESTIVE HEART FAILURE. 4. CONGESTIVE HEART FAILURE. 5. HISTORY OF CORONARY ARTERY DISEASE. 6. DIABETES MELLITUS, UNCONTROLLED. 7. MORBID OBESITY. 8. HYPERTENSION. 9. DYSLIPIDEMIA. PLAN: 1. IV Lasix 40 mg now. 2. 1 cc Decadron IM. 3. Accu-Cheks q.i.d. with sliding scale coverage. 4. Daily CBC, CMP. 5. Daily cardiac markers. 6. Daily EKG. 7. Echocardiogram to evaluate LV function. 8. Oxygen 2 to 3L/cannula/min. 9. Rocephin 1 gm q.24hr. 10. Azactam 1 gm q.12. 11. Phenergan with Codeine p.r.n. two teaspoonfuls. 12. Continue the rest of the home medications as before that is: Isosorbide Dinitrate, Losartan with Hydrochlorothiazide, Pravastatin, Amlodpine, Aspirin, Hydralazine, Nitroglycerin, Phenergan eyedrops. The patient is on Ibuprofen, strongly advised to discontinue, will find out who is giving her Ibuprofen. Continue Novolin N 50. She is on Lisinopril Hydrochlorothiazide, which is again a duplication of Losartan Hydrochlorothiazide. 13. Monitor Oximetry. 14. Telemetry. 15. The patient is moved to Special Care Unit. The patient is also going to have C.l diff from the stool because WBC count of 24,000. 16. The patient is full code. 17. The patient's , Jaswinder Santiago called and discussed the case. Explained to him about respiratory failure, CHF and pneumonia along with her several medical problems like coronary artery disease, diabetes mellitus, morbid obesity. The patient was explained about all the findings and diagnosis and prognosis with treatment. The case also discussed with the nursing staff in detail. Earlier the case was discussed with ER attending. Prognosis is guarded. Condition is critical but stable. TIME SPENT: Critical Care 1.5 hours. KAYLIE
[2018-11-12] MEDS: PRAVACHOL PO SCH (20:57)
[2018-11-12] MEDS: LUMIGAN 0.03% OP SCH (21:00)
[2018-11-13] MEDS: DUONEB NEB SCH ×4 (04:55→23:20)
[2018-11-13] MEDS: AZACTAM 1 GM in SODIUM CHLORIDE 50 ML IV SCH ×3 (05:28→21:00)
[2018-11-13] MEDS: LASIX IVP SCH ×2 (05:30→17:48)
[2018-11-13] MEDS: APRESOLINE PO SCH ×2 (08:05→21:14)
--- NOTE | 2018-11-13 08:51 | DI ---
EXAMINATION: AP chest radiograph. HISTORY: Cough, short of air COMPARISON: 11/11/2018 FINDINGS: A left upper lung zone calcified granuloma is seen.Minimal medial right basilar streaky opacities are identified, decreased compared to the prior exam. The previously seen right upper lung zone opaciti es are no longer identified. The heart is mildly enlarged. A left wall chest wall pacing device is re-identified. A moderate-to- large hiatal hernia is again seen. IMPRESSION: Minimal residual right basilar atelectasis and/or consolidation. Mild cardiomegaly. [id number] hiatal hernia.
--- NOTE | 2018-11-13 09:20 | PCM.PROG ---
Attending Provider: ATTENDING PROVIDER: Dr. EVELYN STINSON This patient is seen with Gale Cuevas, Nurse Practitioner. DATE OF SERVICE: 11/13/18 SUBJECTIVE: This 78 year old WHITE/ F was hospitalized 11/10/18. The patient is sitting in chair resting comfortably. She has been eating well. We are still wearing 02. She has been up and about walking. Blood cultures negative thus far. REVIEW OF SYSTEMS: CONSTITUTIONAL: Weakness. No night sweats. No fatigue, malaise, lethargy. No fever or chills. HEENT: Eyes: No visual changes. No eye pain. No eye discharge. ENT: No runny nose. No epistaxis. No sinus pain. No odynophagia. No congestion. RESPIRATORY: No cough, no congestion. No hemoptysis. Shortness of breath. CARDIOVASCULAR: No angina symptoms. No CHF symptoms. No atypical chest pain for CAD. No palpitations. No orthopnea.. GASTROINTESTINAL: No abdominal pain. No nausea or vomiting. No diarrhea or constipation. No hematemesis. No hematochezia. GENITOURINARY: No urgency. No frequency. No dysuria. No hematuria. No obstructive symptoms. No discharge. No pain. No significant abnormal bleeding. MUSCULOSKELETAL: No musculoskeletal pain; no joint swelling. NEUROLOGICAL: Awake, alert, oriented to time, place and person. No headache. No neck pain. No syncope. No seizures. No dizziness. PSYCHIATRIC: Not anxious. No depression. No suicidal thoughts. No homicidal thoughts. SKIN: No rash. No lesions. No wounds. ENDOCRINE: No unexplained weight loss. No weight gain. HEMATOLOGIC/LYMPHATIC: No anemia. No purpura. No petechiae. No prolonged or excessive bleeding. No palpable lymph nodes. PHYSICAL EXAMINATION: GENERAL: The patient is awake, alert and oriented, lying/sitting in bed in no distress. VITAL SIGNS: Temperature 98.6 F, Pulse 79, Respiratory Rate 17, BP 143/77, Pulse Ox 95% HEENT: Head normocephalic, atraumatic. Eyes: Extraocular muscles are intact. Pupils are equal, round and reactive to light and accommodation. Ears: No lesions. Nose appeared normal. Throat: No exudate or erythema. NECK: Supple. No JVD, no carotid bruit. No lymphadenopathy or thyromegaly. LUNGS: Diminished breath sounds. Clear to auscultation. Percussion note normal. Chest symmetrical. HEART: S1, S2, no S3. No murmurs. No cyanosis or clubbing. No ascites. Pulses: Dorsalis pedis and posterior tibial pulses +1 to +2 both sides. ABDOMEN: Soft. Non-tender. Bowel sounds active. No CVA tenderness. No mass felt. EXTREMITIES: Trace bilateral leg edema. Full range of motion of all extremities, equal. NEUROLOGIC: No focal deficit. Cranial nerves II through XII are grossly intact. No headache, no double vision or headache. SKIN: Not dry. Intact. Turgor-normal. LYMPHATIC: No palpable lymph nodes/no lymphedema. MUSCULOSKELETAL: Normal joints with no swelling. Muscle tone is normal. LAB REVIEW: 11/13/18 04:00 11/13/18 04:00 11/13/18 04:00: Sodium 137.9, Potassium 3.58, Chloride 99.8, Carbon Dioxide 32.3 H, Anion Gap 9.38, BUN 32.3 H, Creatinine 1.04, Estimated GFR (MDRD) 51.00 , BUN/Creatinine Ratio 31.05, Glucose 153.8 H D, Calcium 9.20, Total Bilirubin 0.27, AST 16.5, ALT 12.6, Alkaline Phosphatase 58.4, Total Protein 5.94 L, Albumin 3.29 L, Globulin 2.65, Albumin/Globulin Ratio 1.24 11/13/18 04:00: WBC 14.05 H, RBC 3.99 L, Hgb 11.5 L, Hct 36.7 L, MCV 92.0, MCH 28.8, MCHC 31.3 L, RDW Coeff of [place] 14.0, Plt Count 268, Immature Gran % (Auto) 0.6, Neut % (Auto) 70.4, Lymph % (Auto) 19.8, [place] % (Auto) 6.5, Eos % (Auto) 2.4, Baso % (Auto) 0.3, Immature Gran # (Auto) 0.1, Neut # (Auto) 9.9 H, Lymph # (Auto) 2.8, [place] # (Auto) 0.9, Eos # (Auto) 0.3, Baso # (Auto) 0.0 11/12/18 05:00: NT-Pro-B Natriuret Pep 1320.000 H ASSESSMENT: Please see below. 1. UROSEPSIS. 2. BILATERAL PNEUMONIA. 3. DEHYDRATION. PLAN: 1. Continue IV antibiotics. 2. Lasix 40 mg IV daily. 3. Potassium 20 mEq p.o. daily. Plan and coordination of the patient's care discussed in the presence of Media Supervisor and nurse. CONDITION: Stable SCRIBED BY: OSMAR AQUINO Aircraft Cabin Cleaner scribed while in presence of service performed by Dr. Stinson/Gale Cuevas APRN on 11/13/18 ([id number])
[2018-11-13] MEDS: BRINZOLAMIDE OP SCH ×3 (09:40→21:01)
[2018-11-13] MEDS: ASPIRIN EC PO SCH (09:40)
[2018-11-13] MEDS: IMDUR PO SCH (09:40)
[2018-11-13] MEDS: BRIMONIDINE TART OP SCH ×3 (09:40→21:01)
[2018-11-13] MEDS: [UNRECOGNIZED DRUG - OTHER] OP SCH ×3 (09:40→21:01)
[2018-11-13] MEDS: ROCEPHIN 1 GM in SODIUM CHLORIDE 50 ML IV SCH (09:40)
[2018-11-13] MEDS: DITROPAN XL PO SCH (09:40)
[2018-11-13] MEDS: NORVASC PO SCH (09:41)
[2018-11-13] MEDS: COZAAR PO SCH (09:41)
[2018-11-13] MEDS: HUMULIN N SUBCUT SCH ×3 (09:42→21:12)
[2018-11-13] MEDS: HUMULIN R SUBCUT PRN ×3 (11:10→21:01)
[2018-11-13] MEDS: PRAVACHOL PO SCH (21:01)
[2018-11-13] MEDS: LUMIGAN 0.03% OP SCH (21:01)
[2018-11-14] MEDS: AZACTAM 1 GM in SODIUM CHLORIDE 50 ML IV SCH ×3 (04:39→20:59)
[2018-11-14] MEDS: DUONEB NEB SCH ×4 (05:35→22:45)
[2018-11-14] MEDS: LASIX IVP SCH (05:59)
[2018-11-14] MEDS: ROCEPHIN 1 GM in SODIUM CHLORIDE 50 ML IV SCH (08:46)
[2018-11-14] MEDS: DITROPAN XL PO SCH (08:46)
[2018-11-14] MEDS: ASPIRIN EC PO SCH (08:46)
[2018-11-14] MEDS: COZAAR PO SCH (08:46)
[2018-11-14] MEDS: NORVASC PO SCH (08:46)
[2018-11-14] MEDS: IMDUR PO SCH (08:47)
[2018-11-14] MEDS: APRESOLINE PO SCH ×2 (08:52→19:01)
--- NOTE | 2018-11-14 09:42 | PCM.PROG ---
Attending Provider: ATTENDING PROVIDER: Dr. EVELYN STINSON DATE OF SERVICE: 11/14/18 SUBJECTIVE: This 78 year old WHITE/ F was hospitalized 11/10/18 with multiple medical conditions, urosepsis, pneumonia, acute gastroenteritis and CHF. Condition steadily improving. She does not have any symptoms of CHF or coronary insufficiency. No fever no chills. Appetite improved. The is in the room. She is oriented times three. REVIEW OF SYSTEMS: CONSTITUTIONAL: No night sweats. No fatigue, malaise, lethargy. No fever or chills. HEENT: Eyes: No visual changes. No eye pain. No eye discharge. ENT: No runny nose. No epistaxis. No sinus pain. No odynophagia. No congestion. RESPIRATORY: No cough, no congestion. No hemoptysis. No shortness of breath. CARDIOVASCULAR: No angina symptoms. No CHF symptoms, no symptoms of coronary insufficiency. No atypical chest pain for CAD. No palpitations. No orthopnea.. GASTROINTESTINAL: Appetite improved. No abdominal pain. No nausea or vomiting. No diarrhea or constipation. No hematemesis. No hematochezia. GENITOURINARY: No urgency. No frequency. No dysuria. No hematuria. No obstructive symptoms. No discharge. No pain. No significant abnormal bleeding. MUSCULOSKELETAL: No musculoskeletal pain; no joint swelling. NEUROLOGICAL: Awake, alert, oriented to time, place and person. No headache. No neck pain. No syncope. No seizures. No dizziness. PSYCHIATRIC: Not anxious. No depression. No suicidal thoughts. No homicidal thoughts. SKIN: No rash. No lesions. No wounds. ENDOCRINE: No unexplained weight loss. No weight gain. HEMATOLOGIC/LYMPHATIC: No anemia. No purpura. No petechiae. No prolonged or excessive bleeding. No palpable lymph nodes. PHYSICAL EXAMINATION: GENERAL: The patient is awake, alert and oriented, sitting in chair in no distress. VITAL SIGNS: Temperature 98.1 F, Pulse 78, Respiratory Rate 22, BP 152/67, Pulse Ox 99% HEENT: Head normocephalic, atraumatic. Eyes: Extraocular muscles are intact. Pupils are equal, round and reactive to light and accommodation. Ears: No lesions. Nose appeared normal. Throat: No exudate or erythema. NECK: Supple. No JVD, no carotid bruit. No lymphadenopathy or thyromegaly. LUNGS: Decreased breath sounds. Clear to auscultation. Percussion note normal. Chest symmetrical. HEART: S1, S2, no S3. No murmurs. No cyanosis or clubbing. No ascites. Pulses: Dorsalis pedis and posterior tibial pulses +1 to +2 both sides. ABDOMEN: Soft. Non-tender. Bowel sounds active. No CVA tenderness. No mass felt. EXTREMITIES: Trace edema. Full range of motion of all extremities, equal. NEUROLOGIC: No focal deficit. Cranial nerves II through XII are grossly intact. No headache, no double vision or headache. SKIN: Warm and dry. Intact. Turgor-normal. LYMPHATIC: No palpable lymph nodes/no lymphedema. MUSCULOSKELETAL: Normal joints with no swelling. Muscle tone is normal. LAB REVIEW: 11/14/18 05:00 11/14/18 05:00 11/14/18 05:00: Sodium 138.4, Potassium 3.41 L, Chloride 100.3, Carbon Dioxide 31.1 H, Anion Gap 10.41, BUN 26.6 H, Creatinine 0.90, Estimated GFR (MDRD) 60.00 , BUN/Creatinine Ratio 29.55, Glucose 117.9 H, Calcium 9.07, Total Bilirubin 0.36, AST 17.3, ALT 13.2, Alkaline Phosphatase 68.1, Total Protein 5.91 L, Albumin 3.34 L, Globulin 2.57, Albumin/Globulin Ratio 1.29 11/14/18 05:00: WBC 10.14, RBC 4.15 L, Hgb 11.8 L, Hct 37.6, MCV 90.6, MCH 28.4 , MCHC 31.4 L, RDW Coeff of Jaison 14.0, Plt Count 284, Immature Gran % (Auto) 0.7 , Neut % (Auto) 72.7, Lymph % (Auto) 17.1, [place] % (Auto) 7.1, Eos % (Auto) 2.1, Baso % (Auto) 0.3, Immature Gran # (Auto) 0.1, Neut # (Auto) 7.4 H, Lymph # ( Auto) 1.7, [place] # (Auto) 0.7, Eos # (Auto) 0.2, Baso # (Auto) 0.0 ASSESSMENT: Please see below. 1. CHF seems to have resolved. 2. Pneumonia and urosepsis under control. 3. Gastroenteritis, resolved. PLAN: 1. Continue antibiotics and steroids. 2. Changes in medication made. 3. Will gear toward treating CHF and putting her on Lasix and potassium supplements. Plan and coordination of the patient's care discussed in the presence of [employer] Steamer Operator and nurse. CONDITION: Stable SCRIBED BY: OSMAR AQUINO Shipyard Supervisor scribed while in presence of service performed by Dr. EVELYN STINSON on 11/14/18 ([id number])
[2018-11-14] MEDS: BRINZOLAMIDE OP SCH ×3 (09:46→21:04)
[2018-11-14] MEDS: [UNRECOGNIZED DRUG - OTHER] OP SCH ×3 (09:46→21:04)
[2018-11-14] MEDS: BRIMONIDINE TART OP SCH ×3 (09:46→21:04)
[2018-11-14] MEDS: HUMULIN N SUBCUT SCH ×2 (11:09→21:06)
[2018-11-14] MEDS: HUMULIN R SUBCUT PRN ×3 (11:44→21:05)
[2018-11-14] MEDS: K-DUR PO SCH (12:56)
[2018-11-14] MEDS: AZACTAM ONE ×2 (13:13→15:18)
[2018-11-14] MEDS ORDERED: CALMOSEPTINE OINTMENT TP PRN (18:00)
[2018-11-14] MEDS ORDERED: CALMOSEPTINE OINTMENT TP ONE (18:59)
[2018-11-14] MEDS: PRAVACHOL PO SCH (21:03)
[2018-11-14] MEDS: LUMIGAN 0.03% OP SCH (21:04)
[2018-11-15] MEDS ORDERED: NYSTOP POWDER TP SCH (02:00)
[2018-11-15] MEDS ORDERED: NYSTOP POWDER TP ONE (02:31)
[2018-11-15] MEDS: AZACTAM 1 GM in SODIUM CHLORIDE 50 ML IV SCH ×2 (04:19→12:20)
[2018-11-15] MEDS: DUONEB NEB SCH ×2 (05:00→11:05)
[2018-11-15] MEDS ORDERED: LASIX TAB PO SCH (06:30)
[2018-11-15] MEDS: APRESOLINE PO SCH (06:36)
[2018-11-15] MEDS: HUMULIN R SUBCUT PRN ×2 (06:36→12:20)
[2018-11-15] MEDS ORDERED: K-DUR PO STA (08:38)
[2018-11-15] MEDS ORDERED: K-DUR ONE ×2 (09:03→11:14)
[2018-11-15] MEDS: IMDUR PO SCH (09:05)
[2018-11-15] MEDS: ROCEPHIN 1 GM in SODIUM CHLORIDE 50 ML IV SCH (09:05)
[2018-11-15] MEDS: DITROPAN XL PO SCH (09:06)
[2018-11-15] MEDS: BRINZOLAMIDE OP SCH (09:06)
[2018-11-15] MEDS: BRIMONIDINE TART OP SCH (09:06)
[2018-11-15] MEDS: NORVASC PO SCH (09:06)
[2018-11-15] MEDS: [UNRECOGNIZED DRUG - OTHER] OP SCH (09:06)
[2018-11-15] MEDS: ASPIRIN EC PO SCH (09:06)
[2018-11-15] MEDS: COZAAR PO SCH (09:06)
[2018-11-15] MEDS: K-DUR PO SCH (09:07)
[2018-11-15] MEDS: HUMULIN N SUBCUT SCH (09:26)
--- NOTE | 2018-11-15 09:35 | PCM.PROG ---
Attending Provider: ATTENDING PROVIDER: Dr. EVELYN STINSON This patient is seen with Gale Cuevas, Nurse Practitioner. DATE OF SERVICE: 11/15/18 SUBJECTIVE: This 78 year old WHITE/ F was hospitalized 11/10/18. The patient is sitting in chair resting comfortably. She has been eating well. No fever. She is still wearing oxygen. She is feeling good enough to go home today. REVIEW OF SYSTEMS: CONSTITUTIONAL: Weakness. No night sweats. No fatigue, malaise, lethargy. No fever or chills. HEENT: Eyes: No visual changes. No eye pain. No eye discharge. ENT: No runny nose. No epistaxis. No sinus pain. No odynophagia. No congestion. RESPIRATORY: Cough. No congestion. No hemoptysis. No shortness of breath. CARDIOVASCULAR: No angina symptoms. No CHF symptoms. No atypical chest pain for CAD. No palpitations. No orthopnea.. GASTROINTESTINAL: No abdominal pain. No nausea or vomiting. No diarrhea or constipation. No hematemesis. No hematochezia. GENITOURINARY: No urgency. No frequency. No dysuria. No hematuria. No obstructive symptoms. No discharge. No pain. No significant abnormal bleeding. MUSCULOSKELETAL: No musculoskeletal pain; no joint swelling. NEUROLOGICAL: Awake, alert, oriented to time, place and person. No headache. No neck pain. No syncope. No seizures. No dizziness. PSYCHIATRIC: Not anxious. No depression. No suicidal thoughts. No homicidal thoughts. SKIN: No rash. No lesions. No wounds. ENDOCRINE: No unexplained weight loss. No weight gain. HEMATOLOGIC/LYMPHATIC: No anemia. No purpura. No petechiae. No prolonged or excessive bleeding. No palpable lymph nodes. PHYSICAL EXAMINATION: GENERAL: The patient is awake, alert and oriented, sitting in chair in no distress. VITAL SIGNS: Temperature 97.9 F, Pulse 86, Respiratory Rate 21, BP 148/53, Pulse Ox 98% HEENT: Head normocephalic, atraumatic. Eyes: Extraocular muscles are intact. Pupils are equal, round and reactive to light and accommodation. Ears: No lesions. Nose appeared normal. Throat: No exudate or erythema. NECK: Supple. No JVD, no carotid bruit. No lymphadenopathy or thyromegaly. LUNGS: Diminished breath sounds. Clear to auscultation. Percussion note normal. Chest symmetrical. HEART: S1, S2, no S3. No murmurs. No cyanosis or clubbing. No ascites. Pulses: Dorsalis pedis and posterior tibial pulses +1 to +2 both sides. ABDOMEN: Soft. Non-tender. Bowel sounds active. No CVA tenderness. No mass felt. EXTREMITIES: No leg edema. Full range of motion of all extremities, equal. NEUROLOGIC: No focal deficit. Cranial nerves II through XII are grossly intact. No headache, no double vision or headache. SKIN: Not dry. Intact. Turgor-normal. LYMPHATIC: No palpable lymph nodes/no lymphedema. MUSCULOSKELETAL: Normal joints with no swelling. Muscle tone is normal. LAB REVIEW: 11/15/18 06:00 11/15/18 06:00 11/15/18 06:00: Sodium 138.7, Potassium 3.30 L, Chloride 103.7, Carbon Dioxide 28.7, Anion Gap 9.60, BUN 20.7 H, Creatinine 0.76, Estimated GFR (MDRD) 73.00, BUN/Creatinine Ratio 27.23, Glucose 145.0 H, Calcium 8.91, Total Bilirubin 0.35 , AST 16.6, ALT 12.9, Alkaline Phosphatase 75.7, Total Protein 6.18 L, Albumin 3.43 L, Globulin 2.75, Albumin/Globulin Ratio 1.24 11/15/18 06:00: WBC 10.02, RBC 4.20, Hgb 12.1, Hct 38.3, MCV 91.2, MCH 28.8, MCHC 31.6 L, RDW Coeff of Jaison 14.0, Plt Count 268, Immature Gran % (Auto) 1.0, Neut % (Auto) 69.8, Lymph % (Auto) 19.3, [place] % (Auto) 6.1, Eos % (Auto) 3.4, Baso % (Auto) 0.4, Immature Gran # (Auto) 0.1, Neut # (Auto) 7.0 H, Lymph # ( Auto) 1.9, [place] # (Auto) 0.6, Eos # (Auto) 0.3, Baso # (Auto) 0.0 ASSESSMENT: Please see below. 1. Urosepsis - improved. 2. Pneumonia - improved. 3. CHF seems to have resolved. 4. Gastroenteritis, resolved. PLAN: 1. Will see back in office in one week. 2. Three-step oxygen. 3. Omnicef 300 b.i.d times 5 days. 4. Potassium 40 mEq now and 40 mEq before discharge. 5. D/C home today. 6. Repeat chest x-ray before discharge. 40 potassium now and 40 before discharge Plan and coordination of the patient's care discussed in the presence of Sample Steamer and nurse. CONDITION: Stable SCRIBED BY: OSMAR AQUINO Medical Radiation Dosimetrist scribed while in presence of service performed by Dr. Stinson/Gale Cuevas APRN on 11/15/18 ([id number])
[2018-11-15 10:33] VITALS: BP 131/85; TEMP 98.2
[2018-11-15] MEDS ORDERED: K-DUR PO ONE (11:00)
--- NOTE | 2018-11-15 11:10 | PN ---
DATE OF SERVICE: 11/11/18 SUBJECTIVE: 78 year old white female hospitalized with multiple medical conditions likely urosepsis, pneumonia. congestive heart failure, nausea and vomiting. The patient 's condition has improved and she is feeling a lot better. The cough is much less. REVIEW OF SYSTEMS: CONSTITUTIONAL: No night sweats. Some fatigue. No fever or chills. HEENT: Eyes: No visual changes. No eye pain. No eye discharge. ENT: No runny nose. No epistaxis. No sinus pain. No sore throat. No odynophagia. No congestion. RESPIRATORY: Mild occasional cough, no congestion. No hemoptysis. Shortness of breath. CARDIOVASCULAR: No angina symptoms. No CHF symptoms. No atypical chest pain for CAD. No palpitations. No PND. No orthopnea. GASTROINTESTINAL: No abdominal pain. No nausea or vomiting. No diarrhea or constipation. No hematemesis. No hematochezia. Appetite has improved. GENITOURINARY: No urgency. No frequency. No dysuria. No hematuria. No obstructive symptoms. No discharge. No pain. No significant abnormal bleeding. MUSCULOSKELETAL: No musculoskeletal pain; no joint swelling. NEUROLOGICAL: No headache. No neck pain. No syncope. No seizures. No dizziness. PSYCHIATRIC: Not anxious. No depression. No suicidal thoughts. No homicidal thoughts. SKIN: No rash. No lesions. No wounds. ENDOCRINE: No unexplained weight loss. No weight gain. HEMATOLOGIC/LYMPHATIC: No anemia. No purpura. No petechiae. No prolonged or excessive bleeding. No palpable lymph nodes. PHYSICAL EXAMINATION: VITAL SIGNS: Temperature 98.5, pulse 85, respiratory rate 19, blood pressure 127/46 and pulse ox 99% on room air. HEENT: Head normocephalic, atraumatic. Eyes: Extraocular muscles are intact. Pupils are equal, round and reactive to light and accommodation. Ears: No lesions. Nose appeared normal. Throat: No exudate or erythema. NECK: Supple. No JVD, no carotid bruit. No lymphadenopathy or thyromegaly. LUNGS: Clear to auscultation with decreased breath sounds. Percussion note normal. Chest symmetrical. HEART: S1, S2, no S3. No murmurs. No cyanosis or clubbing. No ascites. Pulses: Dorsalis pedis and posterior tibial pulses +1 to +2 bilaterally. ABDOMEN: Soft. Nontender. Bowel sounds active. No CVA tenderness. No mass felt. EXTREMITIES: No edema. Full range of motion of all extremities, equal. Moving all her extremities. NEUROLOGIC: No focal deficit. Cranial nerves II through XII are grossly intact. No headache, no double vision or headache. SKIN: Not dry. Intact. Turgor - normal. LYMPHATIC: No palpable lymph nodes/no lymphedema. MUSCULOSKELETAL: Normal joints with no swelling. Muscle tone is normal. LABS: Hgb 12.2, hct 38, WBC 14,000 normal differential, creatinine 0.8, BUN 23, potassium 4.5, glucose 449. The patient is on sliding scale and insulin coverage. The patient is on steroids, was given yesterday 1cc and today it is going to be 0.5cc Decadron IM. ASSESSMENT: 1. Urosepsis, treated with Rocephin and Azactam 2. Pneumonia/Atelectasis with bronchitis likely 3. Likely bronchitis being treated with Rocephin 4. Congestive heart failure seems to be resolved, no symptoms of CHF at present time. The patient was given 40mg Lasix IV yesterday and no IV fluids has been given. 5. Vomiting, nausea and diarrhea has subsided. Possibility of C-Diff exists but the patient has no stools for past couple of days except for this morning she had a normal bowel movement. 6. Hyperglycemia, being controlled with sliding scale 7. Blood pressure is well controlled. Adjustment in the medications will be made tomorrow. Adjustment needs to be made as she is on Hydrochlorothiazide with Lisinopril and Losartan with Hydrochlorothiazide. That needs to be corrected. PLAN: 1. The patient's is in the room and condition is discussed. He is very satisfied with the patient's progress. 2. The patient may need ultrasound of heart to evaluate LV function. TIME SPENT: Approximately 50 minutes CODE: Extensive. Plan and coordination of the patient's care discussed in the presence of nurse. KAYLIE
--- NOTE | 2018-11-15 11:23 | PN ---
DATE OF SERVICE: 11/12/18 SUBJECTIVE: 78 year old white female hospitalized with multiple medical conditions like urosepsis, pneumonia, congestive heart failure and gastroenteritis type of symptoms. The patient's condition has improved. Yesterday the patient's blood sugar was 600 and she was given 30 units of regular insulin along with her Humulin and they patient's blood sugar this morning is 303. She is being followed with sliding scale with Accu-checks. The patient's blood sugar was high because of steroid injection that was given yesterday. The patient says that she is feeling a lot better and not much coughing at all. No PND, no orthopnea and breathing is a lot better. REVIEW OF SYSTEMS: CONSTITUTIONAL: No night sweats. No fatigue, malaise, lethargy. No fever or chills. HEENT: Eyes: No visual changes. No eye pain. No eye discharge. ENT: No runny nose. No epistaxis. No sinus pain. No sore throat. No odynophagia. No congestion. RESPIRATORY: No cough, no congestion. No hemoptysis. No shortness of breath. CARDIOVASCULAR: No angina symptoms. No CHF symptoms. No atypical chest pain for CAD. No palpitations. No PND. No orthopnea. GASTROINTESTINAL: No abdominal pain. No nausea or vomiting. No diarrhea or constipation. No hematemesis. No hematochezia. GENITOURINARY: No urgency. No frequency. No dysuria. No hematuria. No obstructive symptoms. No discharge. No pain. No significant abnormal bleeding. MUSCULOSKELETAL: No musculoskeletal pain; no joint swelling. NEUROLOGICAL: No headache. No neck pain. No syncope. No seizures. No dizziness. PSYCHIATRIC: Not anxious. No depression. No suicidal thoughts. No homicidal thoughts. SKIN: No rash. No lesions. No wounds. ENDOCRINE: No unexplained weight loss. No weight gain. HEMATOLOGIC/LYMPHATIC: No anemia. No purpura. No petechiae. No prolonged or excessive bleeding. No palpable lymph nodes. PHYSICAL EXAMINATION: VITAL SIGNS: Temperature 98.5, pulse 80, respiratory rate 16, blood pressure 135/68 and pulse ox 95%. HEENT: Head normocephalic, atraumatic. Eyes: Extraocular muscles are intact. Pupils are equal, round and reactive to light and accommodation. Ears: No lesions. Nose appeared normal. Throat: No exudate or erythema. NECK: Supple. No JVD, no carotid bruit. No lymphadenopathy or thyromegaly. LUNGS: Clear to auscultation with good air entry. Percussion note normal. Chest symmetrical. HEART: S1, S2, no S3. No murmurs. No cyanosis or clubbing. No ascites. Pulses: Dorsalis pedis and posterior tibial pulses +1 to +2 bilaterally. ABDOMEN: Soft. Nontender. Bowel sounds active. No CVA tenderness. No mass felt. EXTREMITIES: +1 pitting edema. Full range of motion of all extremities, equal. NEUROLOGIC: No focal deficit. Cranial nerves II through XII are grossly intact. No headache, no double vision or headache. SKIN: Not dry. Intact. Turgor - normal. LYMPHATIC: No palpable lymph nodes/no lymphedema. MUSCULOSKELETAL: Normal joints with no swelling. Muscle tone is normal. LABS: Hgb 11.4, hct 36, WBC 12,000 normal differential, creatinine 1, BUN 32, potassium 3.8, GFR 53cc per minute. ASSESSMENT: 1. Urosepsis seems to be under control with double antibiotics 2. Pneumonia seems to be under control not coughing and no symptoms 3. Bronchitis also resolving 4. CHF seems to be under control with no symptoms 5. Coronary artery disease is stable PLAN: 1. We will do echocardiogram on this patient and see what her LV function is 2. Continue sliding scale 3. WBC from 26,000 down to 12,000, stable CONDITION: IMPROVING 3. TIME SPENT: More than 30 minutes. Plan and coordination of the patient's care discussed in the presence of nurse. KAYLIE
--- NOTE | 2018-11-15 11:46 | DI ---
EXAM: Two views of the chest. History: Short of breath Comparison: Chest radiograph 11/12/2018 Findings: Heart is enlarged. Early interstitial edema. No appreciable pleural fluid and no pneumot horax. Pacer device. No acute osseous abnormalities. Air-fluid levels seen on the lateral view is probably related to a hiatal hernia. Impression: 1. Cardiomegaly with early interstitial edema. 2. Air-fluid levels seen on the lateral view is probably due to a hiatal hernia.
--- NOTE | 2018-11-15 11:56 | PN ---
DATE OF SERVICE: 11/13/18 SUBJECTIVE: The patient was seen and examined with the nurse practitioner. The patient's condition seems to be improving. Pneumonia seems to be resolving with IV antibiotics. She is breathing better. CHF seems to have resolved. Will get the chest x-ray report done yesterday. Arterial blood gases yesterday showed p02 of 65 on room air, remarkable improvement from admission when it was noted to be 50. Saturation 89%. The patient's saturation on room air is 95%. She is feeling a lot better. Blood sugar this morning was 108. Will decrease the Humulin N to 30 units from 50. Will watch her for hypoglycemia. Condition is improving. Her appetite is improving. She has no symptoms of CHF or coronary insufficiency. PHYSICAL EXAMINATION: HEENT: Head normocephalic, atraumatic. Eyes: Extraocular muscles are intact. Pupils are equal, round and reactive to light and accommodation. Ears: No lesions. Nose appeared normal. Throat: No exudate or erythema. NECK: Supple. No JVD, no carotid bruit. No lymphadenopathy or thyromegaly. LUNGS: Decreased breath sounds but good air entry. Percussion note normal. Chest symmetrical. HEART: S1, S2, no S3. No murmurs. No cyanosis or clubbing. No ascites. Pulses: Dorsalis pedis and posterior tibial pulses +1 to +2 bilaterally. ABDOMEN: Soft. Nontender. Bowel sounds active. No CVA tenderness. No mass felt. EXTREMITIES: No edema. Full range of motion of all extremities, equal. NEUROLOGIC: No focal deficit. Cranial nerves II through XII are grossly intact. No headache, no double vision or headache. SKIN: Not dry. Intact. Turgor - normal. LYMPHATIC: No palpable lymph nodes/no lymphedema. MUSCULOSKELETAL: Normal joints with no swelling. Muscle tone is normal. CONDITION: Stable. TIME SPENT: More than 30 minutes. Plan and coordination of the patient's care discussed in the presence of nurse. KAYLIE
--- NOTE | 2018-11-15 12:50 | CM.DICTOOL ---
ADMISSION: 11/10/18 17:55 DISCHARGE: October DATE OF SERVICE: 11/15/18 FINAL DIAGNOSIS UROSEPSIS, IMPROVED PNEUMONIA, IMPROVED CHF, RESOLVED GASTROENTERITIS, RESOLVED UTI E-COLI CHEST PAIN BRADYCARDIA (HISTORY) DUAL PACEMAKER HYPERTENSION DYSLIPIDEMIA NM PYELONEPHRITIS (HISTORY) UTI, ESBL POSITIVE (HISTORY) HIATAL HERNIA, PER CT CHEST OA TOTAL LEFT KNEE REPLACEMENT, LEFT CHOLECYSTECTOMY APPENDECTOMY CATARACTS, BILATERAL ECHO COMPLETED AWAITING REPORT LAST VITALS Temp Pulse Resp BP Pulse Ox 98.2 F 83 18 131/85 93 L 11/15/18 10:00 11/15/18 10:00 11/15/18 10:00 11/15/18 10:00 11/15/18 10:00 TAKE THESE MEDICATIONS AT HOME Acetaminophen (Tylenol) 650 mg PO BID PRN Reason: PAIN Amlodipine Besylate (Norvasc) [address] [facility] Last Admin: 11/15/18 09:06 Dose: 5 mg Aspirin (Aspirin Ec) [address] [facility] Last Admin: 11/15/18 09:06 Dose: 81 mg Bimatoprost (Lumigan 0.03%) [address] [facility] Last Admin: 11/14/18 21:04 Dose: 1 drop Hydralazine HCl (Apresoline) [address] [facility] Last Admin: 11/15/18 06:36 Dose: 25 mg Insulin Human NPH (Humulin N) [address] [facility] Last Admin: 11/15/18 09:26 Dose: 30 unit Isosorbide Mononitrate (Imdur) [address] [facility] Last Admin: 11/15/18 09:05 Dose: 60 mg Losartan- Hydrochlorothiazide 100/12.[address] [facility] Last Admin: N/A Nitroglycerin (Nitrostat) 0.4 mg SL Q5MIN X 3 DOSES PRN PRN Reason: chest pain Non-Formulary Medication (Brinzolamide/Brimonidine Tart [Simbrinza 1%-0.2% Eye Drops]) [address] [facility] Last Admin: 11/15/18 09:06 Dose: 1 drop Oxybutynin Chloride (Ditropan Xl) [address] [facility] Last Admin: 11/15/18 09:06 Dose: 5 mg Potassium Chloride (K-Dur) 10 meq PO DAILY FOR ONE WEEK Last Admin: 11/15/18 09:07 Pravastatin Sodium (Pravachol) [address] [facility] Last Admin: 11/14/18 21:03 Dose: 40 mg ALLERGIES morphine Adverse Reaction (Verified 11/10/18 11:54) DISCONTINUED MEDICATIONS IBUPROFEN 600 MG PO QID PRN NEW PRESCRIPTIONS: OMNICEF 300 MG PO BID FOR FIVE DAYS K DUR 10 MEQ PO DAILY FOR SEVEN DAYS - FIRST DOSE 11/16 HOME OXYGEN AT BEDTIME AND PRN FOR SOA SCRIPT SENT TO [facility] SMOKING: NON SMOKER DISEASE SPECIFIC EDUCATION: UROSEPSIS PNEUMONIA GASTROENTERITIS OMNICEF FOLLOW UP APPOINTMENT HOME OXYGEN LAB REVIEW: 11/15/18 06:00 11/15/18 06:00 11/15/18 06:00: Sodium 138.7, Potassium 3.30 L, Chloride 103.7, Carbon Dioxide 28.7, Anion Gap 9.60, BUN 20.7 H, Creatinine 0.76, Estimated GFR (MDRD) 73.00, BUN/Creatinine Ratio 27.23, Glucose 145.0 H, Calcium 8.91, Total Bilirubin 0.35 , AST 16.6, ALT 12.9, Alkaline Phosphatase 75.7, Total Protein 6.18 L, Albumin 3.43 L, Globulin 2.75, Albumin/Globulin Ratio 1.24 11/15/18 06:00: WBC 10.02, RBC 4.20, Hgb 12.1, Hct 38.3, MCV 91.2, MCH 28.8, MCHC 31.6 L, RDW Coeff of Jaison 14.0, Plt Count 268, Immature Gran % (Auto) 1.0, Neut % (Auto) 69.8, Lymph % (Auto) 19.3, Caroline % (Auto) 6.1, Eos % (Auto) 3.4, Baso % (Auto) 0.4, Immature Gran # (Auto) 0.1, Neut # (Auto) 7.0 H, Lymph # ( Auto) 1.9, Caroline # (Auto) 0.6, Eos # (Auto) 0.3, Baso # (Auto) 0.0 PLAN: DISCHARGE HOME TODAY October. DIET: HEART HEALTHY, DIABETIC ACTIVITY: GRADUALLY INCREASE ACTIVITY TOLERATED FOLLOW UP APPOINTMENT WITH DR. STINSON ON MondayOctober, 130 PM. FULL CODE ALERT, ORIENTED X3. FORGETFUL AT TIMES. MRS. ALMARAZ AND HER ARE AGREEABLE WITH DISCHARGE HOME TODAY. SHE DOES REQUIRE ASSISTANCE OF A WALKER TO AMBULATE. HER ASSISTS WITH HER ADL'S. NO LOOSE STOOLS SINCE ADMISSION. NO FURTHER C/O N/V, NO ABDOMINAL PAIN OR DISCOMFORT. APPETITE HAS BEEN GOOD. HYDRATION STATUS IS ADEQUATE. SKIN WARM, DRY, INTACT. SHE DID QUALIFY FOR HOME OXYGEN, SATS DROPPED TO 87-88% WHILE SITTING UP IN THE RECLINER SLEEPING. EVELYN STINSON M.D. KAREN HERRMANN APRN
--- NOTE | 2018-11-19 11:45 | PN ---
DATE OF SERVICE: 11/15/18 SUBJECTIVE: The patient was seen and examined with Nurse Practitioner. The patient's condition has improved. Her pneumonia, CHF and urosepsis is all under control. She will be discharged home on antibiotics. is in the room. TIME SPENT: More than 30 minutes. Plan and coordination of the patient's care discussed in the presence of nurse. KAYLIE
--- NOTE | 2018-11-19 11:47 | PN ---
11/10/18: Critical care 1.5-2 hours 11/11/18: Extensive 11/12/18: Intermediate 11/13/18: Intermediate 11/14/18: Intermediate 11/15/18: D as in discharge MTDD
--- NOTE | 2018-11-20 10:06 | ECHO2D ---
Date of Exam: 11/12/18 Ordering Physician: DR. EVELYN STINSON Room #: [id number] Reason for Echo: HTN, EVALUATE LV FUNCTION, CABG M-Mode Normal Adult Results LV Dimensions Normal Adult Results AoV Opening excursions >1.6 >1.6 LVEDD-base- 3.5-5.8 5.6 Ao root dimensions 2.0-3.7 3.1 LVESD-base- 3.1-4.6 L. Atrium dimensions 1.9-3.8 4.6 Post. Wall thickness 0.8-1.1 1.3 IV septum (thickness) 0.7-1.2 1.4 Post. Wall excursion 0.72-1.3 NORMAL Septal motion NORMAL Systolic motion R. Ventricular cavity 1.5-2.0 NORMAL LVEF 60% 50% Paradoxical septal wall motion NORMAL 2-D : MILDLY HYPOKINETIC INFERIOR POST WALL--ENLARGED LEFT ATRIAL CAVITY-- NORMAL VALVES, NO EFFUSION, NO THROMBUS M-MODE: MV: NORMAL AV: NORMAL TV: NORMAL PV: CHAMBER SIZE: ENLARGED LEFT ATRIAL CAVITY WALL MOTION: MILDLY HYPOKINETIC INFERIOR POST WALL PERICARDIUM: NORMAL INTERPRETATION: 1. LEFT VENTRICULAR HYPERTROPHY WITH ENLARGED LEFT ATRIAL CAVITY 2. MILDLY HYPOKINETIC INFERIOR POST WALL EJECTION FRACTION 50% 3. NORMAL VALVES 4. LEFT VENTRICULAR CAVITY 5.6 CM MTDD
--- NOTE | 2018-11-20 13:23 | DS ---
DATE OF SERVICE: 11/15/18 FINAL DIAGNOSIS UROSEPSIS, IMPROVED PNEUMONIA, IMPROVED CHF, RESOLVED GASTROENTERITIS, RESOLVED UTI E-COLI CHEST PAIN BRADYCARDIA (HISTORY) DUAL PACEMAKER HYPERTENSION DYSLIPIDEMIA ID PYELONEPHRITIS (HISTORY) UTI, ESBL POSITIVE (HISTORY) HIATAL HERNIA, PER CT CHEST OA TOTAL LEFT KNEE REPLACEMENT, LEFT CHOLECYSTECTOMY APPENDECTOMY CATARACTS, BILATERAL ECHO COMPLETED AWAITING REPORT LAST VITALS: Temp Pulse Resp BP Pulse Ox 98.2 F 83 18 131/85 93 L 11/15/18 10:00 11/15/18 10:00 11/15/18 10:00 11/15/18 10:00 11/15/18 10:00 DISCHARGE INSTRUCTIONS: DISCHARGE HOME TODAY October. FOLLOW UP APPOINTMENT WITH DR. STINSON ON MondayOctober, 130 PM. FULL CODE. TAKE THESE MEDICATIONS AT HOME: Acetaminophen (Tylenol) 650 mg PO BID Amlodipine Besylate (Norvasc) 5 mg PO BID [facility] Aspirin (Aspirin Ec) 81 mg PO DAILYWM [facility] Bimatoprost (Lumigan 0.03%) 1 drop OP BEDTIME [facility] Hydralazine HCl (Apresoline) 25 mg PO Q12H [facility] Insulin Human NPH (Humulin N) 50 unit SUBCUT BID [facility] Isosorbide Mononitrate (Imdur) 60 mg PO DAILY [facility] Losartan- Hydrochlorothiazide 100/12.5 mg PO DAILY [facility] Nitroglycerin (Nitrostat) 0.4 mg SL Q5MIN X 3 DOSES PRN Non-Formulary Medication (Brinzolamide/Brimonidine Tart [Simbrinza 1%-0.2% Eye Drops]) 1 drop OP TID [facility] Oxybutynin Chloride (Ditropan Xl) 5 mg PO DAILY [facility] Potassium Chloride (K-Dur) 10 meq PO DAILY FOR ONE WEEK Pravastatin Sodium (Pravachol) 40 mg PO BEDTIME [facility] ALLERGIES: morphine Adverse Reaction (Verified 11/10/18 11:54) DISCONTINUED MEDICATIONS: IBUPROFEN 600 MG PO QID PRN NEW PRESCRIPTIONS: OMNICEF 300 MG PO BID FOR FIVE DAYS K DUR 10 MEQ PO DAILY FOR SEVEN DAYS - FIRST DOSE 11/16 HOME OXYGEN AT BEDTIME AND PRN FOR SOA SCRIPT SENT TO [facility] SMOKING: NON SMOKER DISEASE SPECIFIC EDUCATION: UROSEPSIS PNEUMONIA GASTROENTERITIS OMNICEF FOLLOW UP APPOINTMENT HOME OXYGEN DIET: HEART HEALTHY, DIABETIC ACTIVITY: GRADUALLY INCREASE ACTIVITY TOLERATED HOSPITAL COURSE: This is a 78 year old white female who presented to the emergency room with fever, hypotensive, appeared to be septic, blood cultures have been negative. Urine was abnormal. She was started on Rocephin 1 gram IV daily. Chest x-ray also showed bilateral pneumonia, worse on the right. She was also started on Azactam and placed in special care unit. She was started on IV fluids normal saline at 75cc an hour. Over the course of the next several days she began to improve. She became afebrile. Urine grew e-coli. She also showed some mild pulmonary edema and was given IV Lasix while in the unit. She has been on oxygen while she has been here. Three step oxygen test she passed however she had significant desaturation while sleeping to 85%. Blood cultures this far have been negative. Today finally repeat chest x-ray did show resolution of the pneumonia. She denies any dysuria when she goes to the bathroom. She is more alert. Blood pressure is normal at 131/85 today. Kidney function is back to normal. She was dehydration initially. She will be sent home on Omnicef 300mg PO twice a day for the next 5 days. She was slightly hypokalemic today. She will receive 80mcg of Potassium before discharge and then 20meq daily for the next 7 days to take at home. We will repeat a CBC and CMP when she comes in the office early next week. Again, they have arranged for home oxygen to use at bedtime and then for PRN any shortness of breath. Her medication is otherwise been unchanged. Her blood pressure medication was initially held due to hypotension from sepsis however has since been restarted and she is tolerating well. We discharge her in stable condition and we will see her next week in the office. Plan of care and discharge was discussed with Dr. Stinson TIME SPENT: More than 60 minutes. KAYLIE
== END 2018-11-15 13:25 | disposition home or self-care (01) | DRG 871 ==
LOC: ED 11:44 → MEDSURG B 17:55 → SCU 19:51
PROVIDERS: ADMIT Internal Medicine; ATTEND Internal Medicine
DX: A41.9 Sepsis, unspecified organism (principal); J18.9 Pneumonia, unspecified organism; J96.90 Respiratory failure, unspecified, unspecified whether with hypoxia or hypercapnia; J98.11 Atelectasis; N39.0 Urinary tract infection, site not specified; E78.5 Hyperlipidemia, unspecified; E66.01 Morbid (severe) obesity due to excess calories; E86.0 Dehydration; E11.65 Type 2 diabetes mellitus with hyperglycemia; I25.2 Old myocardial infarction; I50.9 Heart failure, unspecified; I10 Essential (primary) hypertension; I25.10 Atherosclerotic heart disease of native coronary artery without angina pectoris; B96.20 Unspecified Escherichia coli [E. coli] as the cause of diseases classified elsewhere; M19.90 Unspecified osteoarthritis, unspecified site; D72.829 Elevated white blood cell count, unspecified; J40 Bronchitis, not specified as acute or chronic; K52.9 Noninfective gastroenteritis and colitis, unspecified; R05 Cough; R19.7 Diarrhea, unspecified; R42 Dizziness and giddiness; R07.9 Chest pain, unspecified; R00.1 Bradycardia, unspecified; Z95.0 Presence of cardiac pacemaker; Z68.39 Body mass index [BMI] 39.0-39.9, adult; Z79.4 Long term (current) use of insulin
CPT/HCPCS: 36415; 80053; 81001; 82803; 82947; 82962; 83605; 83690; 83880; 84145; 84484; 85025; 87040; 87086; 87186; 93005; 93010; 94640; 94761; 96365; 99284

== ENCOUNTER 2022-09-29 15:01 | Inpatient (IN) ==
[2022-09-29 15:22] VITALS: BMI 39.6
--- NOTE | 2022-09-29 15:22 | ED.PDOC ---
General ED Provider: Dr. HO MARCH MD Chief Complaint: Diabetes Stated Complaint: "her blood sugars have been all over the place since they changed her meds" Time Seen by Provider: 09/29/22 15:06 Mode of Arrival: Wheelchair Information Source: Patient and Family Primary Care Provider: EVELYN STINSON MD Nursing and Triage Documentation Reviewed and Agree: Yes Does patient meet sepsis criteria?: No System Inflammatory Response Syndrome: Not Applicable Sepsis Protocol: For patient's 13 years and over: Temp is 96.8 and below OR 101 and greater Pulse >90 BPM Resp >20/minute Acutely Altered Mental Status Are patient's symptoms suggestive of a new infection, such as: -Pneumonia -Skin, Soft Tissue -Endocarditis -UTI -Bone, Joint Infection -Implantable Device -Acute Abdominal Infection -Wound Infection -Meningitis -Blood Stream Catheter Infection -Unknown Endocrine Complaint Exam Diabetic Complication Complaint/Exam Onset/Duration: the last month or more, worse in last few days Symptoms Are: Still present Timing: Constant Initial Severity: Severe Current Severity: Severe Character: Confused Aggravating: Reports Medication change Alleviating: Reports None Associated Signs and Symptoms: Reports Polydipsia, Polyuria and Polyphagia; Denies Nausea, Vomiting or Diaphoresis Last Glucometer Readin Cardiac Risk Factors: Reports DM, Hypertension and Elevated lipids CVA Risk Factors: Reports DM, Hypertension and CAD Serious Bacterial Infection Risk Factors: Reports None Related Surgical History: Reports None Acetone on Breath: No Dry Mucous Membranes: Yes Kussmaul Respirations: No Glascow Coma Scale (see protocol): 15 Meningeal Signs: No Differential Diagnoses: Acute DC, Diabetic Ketoacidosis, Hyperosmolar State, Hyperglycemia and Sepsis Review of Systems Review Of Systems Constitutional: Reports No symptoms, Malaise and Weakness Eyes: Reports No symptoms Ears, Nose, Mouth, Throat: Reports No symptoms Respiratory: Reports Cough and Orthopnea Cardiac: Denies Chest pain GI: Denies Abdominal pain : Reports Frequency and Incontinence Musculoskeletal: Reports No symptoms Skin: Reports No symptoms Endocrine: Reports Increased thirst and Increased urine All Other Systems: Reviewed and Negative FORMERLY [facility], [facility] Medical History Anemia D64.9 - Anemia, unspecified (ICD-10) Ataxia R27.0 - Ataxia, unspecified (ICD-10) B12 deficiency anemia D51.9 - Vitamin B12 deficiency anemia, unspecified (ICD-10) 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 - Other specified glaucoma (ICD-10) Bursitis of shoulder, left M75.52 - Bursitis of left shoulder (ICD-10) CAD (coronary artery disease) I25.10 - Atherosclerotic heart disease of [place] coronary artery without angina pectoris (ICD-10) CKD (chronic kidney disease) stage 2, GFR 60-89 ml/min N18.2 - Chronic kidney disease, stage 2 (mild) (ICD-10) COPD (chronic obstructive pulmonary disease) J44.9 - Chronic obstructive pulmonary disease, unspecified (ICD-10) DM2 (diabetes mellitus, type 2) E11.9 - Type 2 diabetes mellitus without complications (ICD-10) Dyslipidemia E78.5 - Hyperlipidemia, unspecified (ICD-10) History of COVID-19 Z86.16 - Personal history of COVID-19 (ICD-10) HTN, goal below 130/80 I10 - Essential (primary) hypertension (ICD-10) Leg weakness, bilateral R29.898 - Other symptoms and signs involving the musculoskeletal system (ICD-10) Metabolic syndrome E88.81 - Metabolic syndrome (ICD-10) Morbid obesity E66.01 - Morbid (severe) obesity due to excess calories (ICD-10) Pacemaker Z95.0 - Presence of cardiac pacemaker (ICD-10) Paroxysmal atrial fibrillation I48.0 - Paroxysmal atrial fibrillation (ICD-10) Primary osteoarthritis of hips, bilateral M16.0 - Bilateral primary osteoarthritis of hip (ICD-10) Recurrent UTI N39.0 - Urinary tract infection, site not specified (ICD-10) Sick sinus syndrome due to SA node dysfunction I49.5 - Sick sinus syndrome (ICD-10) Stable angina I20.8 - Other forms of angina pectoris (ICD-10) Family History FATHER Stroke Mother Diabetes Social History Smoking and tobacco status: Never smoker Alcohol intake: never Substance use type: does not use Special vikram needs: No Agree to transfusion: Yes Adopted: No Caregiver/support person: No Foster care: No Household members: spouse Housing: house Marital status: M Lives independently: Yes Number of children: 2 Financial difficulty paying for basics: not very hard service: No prison: No Current occupational status: retired Pets and animals: No History of recent travel: No (Denies recent travel or leaving the country) Sexually active: No Do you think of yourself as: straight/heterosexual Current gender identity: female Seatbelt use: always Drives intoxicated or rides with intoxicated route sales delivery driver: No Water heater temperature set < 120 degrees: Yes Working smoke detector in home: Yes Fire extinguisher in home: Yes Carbon monoxide detector in home: Yes Firearms in home: No Female Reproductive History Menstrual Hx Hysterectomy: No Hx Tubal Ligation: No Physical Exam Physical Exam Appearance: Reports Obese Ill-appearing: Mild Pain Distress: None Eyes: Reports EOMI ENT: Reports Dry mucosa Neck: Supple Respiratory: Reports Airway patent and Breath sounds clear Cardiovascular: Reports RRR GI/: Reports Soft and Nontender Musculoskeletal: Reports Normal strength and ROM intact Skin: Reports Warm and Dry Neurological: Reports Cranial nerves intact, Alert and Disoriented Psychiatric: Reports Affect appropriate Interpretation EKG Interpretation Time of EKG #1: 15:29 Rate: Normal (77) Rhythm: Other (paced, 100% capture) Ectopy: None [place]: [place] ST Segment: Normal Interpretation: ordered and interpreted by me, paced rhythm, rate 77, normal ST segments EKG Comparison: No significant changes Critical Care Note Critical Care Note Total Critical Care Time (mins): 32 Course Course 09/29/22 15:45 09/29/22 15:45 Orders, Labs, Meds: Lab Review 09/29/22 15:45 WBC 6.34 RBC 4.49 Hgb 12.7 Hct 41.0 MCV 91.3 MCH 28.3 MCHC 31.0 L RDW Coeff of Jaison 15.1 H Plt Count 252 Immature Gran % (Auto) 0.8 Neut % (Auto) 65.2 Lymph % (Auto) 21.9 [place] % (Auto) 9.0 Eos % (Auto) 2.8 Baso % (Auto) 0.3 Neut # (Auto) 4.1 Lymph # (Auto) 1.4 [place] # (Auto) 0.6 Eos # (Auto) 0.2 Baso # (Auto) 0.0 Immature Gran # (Auto) 0.1 PT 11.5 H INR 1.12 Sodium 131.6 L Potassium 3.91 Chloride 95.1 L Carbon Dioxide 32.3 H Anion Gap 8.11 BUN 20.0 H Creatinine 1.39 H Estimated GFR (MDRD) 36.00 BUN/Creatinine Ratio 14.38 Glucose 440.4 H Hemoglobin A1c 8.0 H Lactic Acid 1.89 Calcium 8.86 Total Bilirubin 0.64 AST 16.9 ALT 13.9 Alkaline Phosphatase 96.0 Troponin I 0.173 H NT-Pro-B Natriuret Pep 2770 H Total Protein 6.71 Albumin 3.69 Globulin 3.02 Albumin/Globulin Ratio 1.22 Procalcitonin < 0.05 SARS CoV-2 RNA Rapid NITO Negative Orders Category Date Time Status ADMIT OBSERVATION [PLACE PATIENT OBSERVATION] .TO ADMISSION 09/29/22 16:32 Active MEDSURG (MONITORED BED) EKG-(ED ONLY) Stat CARDIO 09/29/22 15:16 Completed TELEMETRY MONITORING TELE CARE 09/29/22 16:35 Active ACCUCHECK (ED) [ED ACCUCHECK ASSESSMENT] .ONCE EMERGENCY 09/29/22 15:18 Active ED IV/MEDIPORT/POWERPORT .ONCE EMERGENCY 09/29/22 15:17 Active BLOOD CULTURE (ED ONLY) Stat LAB 09/29/22 15:45 Received C-REACTIVE PROTEIN Stat LAB 09/29/22 15:45 Received CBC W/ AUTO DIFF Stat LAB 09/29/22 15:45 Completed CMP [COMPREHENSIVE METABOLIC PANEL] Stat LAB 09/29/22 15:45 Completed ED PROBNP [NT-PROBNP(ED)] Stat LAB 09/29/22 15:45 Completed HEMOGLOBIN A1C (CLINIC ONLY) Stat LAB 09/29/22 15:45 Completed LACTIC ACID Stat LAB 09/29/22 15:45 Completed PROCALCITONIN Stat LAB 09/29/22 15:45 Completed PT WITH INR Stat LAB 09/29/22 15:45 Completed SARS COV-2 RNA RAPID NITO Stat LAB 09/29/22 15:45 Completed TROPONIN I Stat LAB 09/29/22 15:45 Completed UA [URINALYSIS C & S IF INDICATED] Stat LAB 09/29/22 16:45 Received 0.9 % Sodium Chloride [Saline Flush] MEDS 09/29/22 15:16 Active 1 syr IVF PRN PRN Sodium Chloride 0.9% [Sodium Chloride] 1,000 ml MEDS 09/29/22 15:28 Discontinued IV BOLUS CHEST, 1V AP ONLY Stat RADS 09/29/22 16:40 Completed Medications Generic Name Dose Route Start Last Admin Trade Name Freq PRN Reason Stop Dose Admin Sodium Chloride 1 syr 09/29/22 15:16 0.9% Sodium Chloride 10 Ml Disp.Syrin IVF PRN PRN To flush IV Discontinued Medications Generic Name Dose Route Start Last Admin Trade Name Freq PRN Reason Stop Dose Admin Sodium Chloride 1,000 mls @ 1,000 mls/hr 09/29/22 15:28 09/29/22 15:59 Sodium Chloride IV 09/29/22 16:27 1,000 mls/hr BOLUS STA Administration 1542 Patient clinically appears dry and is hyperglycemic. Will start IV fluids. EKG nonacute. Awaiting lab work up 1635 hyperglycemic without DKA, mild SHAUNA, slightly elevated cardiac enzyme with normal EKG and no chest pain. Suspect it is a stress response to her metabolic derangement. Patient extremely weak. Will require hospitalization. Might potentionally benefit from reevaluation by PT/OT once metabolic situation stabilized. She might need exterminator helper termite placement or at least skilled care. and patient agreeable to admission. Case discussed with Dr Stinson who recommends admission to hospitalist. Liz Joyce contacted and will admit. Patient appears clinically very dry despite elevated BNP. Will continue her IVF that are infusing at this time, they can reassess need for additional fluids once inpatient. Vital Signs: Temp Pulse Resp BP Pulse Ox 09/29/22 15:06 97.9 F 61 17 139/43 L 97 Discharge Plan Discharge Patient Disposition: ADMITTED INPATIENT Discharge Problem: SHAUNA (acute kidney injury), Acute hyperglycemia, Elevated troponin Did you review [place] [employer] for ALL controlled substances?: Not Applicable ED Provider: HO MARCH Physician Progress Note: []
[2022-09-29] MEDS ORDERED: SODIUM CHLORIDE 1,000 ML IV STA (15:28)
[2022-09-29 16:02] LABS: BASOPHILS % (AUTO) 0.3 % (0.0-3.0); EOSINOPHILS # (AUTO) 0.2 K/ul (0.0-0.7); EOSINOPHILS % (AUTO) 2.8 % (0.0-7.0); HEMOGLOBIN 12.7 g/dl (12.0-16.0); IMMATURE GRANULOCYTE # (AUTO) 0.1 (0.0-1.0); IMMATURE GRANULOCYTE % (AUTO) 0.8 % (0.0-5.0); LYMPHOCYTES # (AUTO) 1.4 K/uL (0.60-3.4); LYMPHOCYTES % (AUTO) 21.9 (10.0-50.0); MEAN CORPUSCULAR HEMOGLOBIN 28.3 pg (27.0-31.0); MEAN CORPUSCULAR VOLUME 91.3 fl (81.0-99.0); MONOCYTES # (AUTO) 0.6 K/uL (0.4-2.0); NEUTROPHILS # (AUTO) 4.1 K/ul (2.0-6.9); NEUTROPHILS % (AUTO) 65.2 % (42.2-75.2); PLATELET COUNT 252 10^3/uL (140-440); RDW COEFFICIENT OF VARIATION 15.1 % (11.6-14.8); RED BLOOD COUNT 4.49 10^6/ul (4.20-5.40); WHITE BLOOD COUNT 6.34 K/ul (4.6-10.2)
[2022-09-29 16:13] LABS: ALANINE AMINOTRANSFERASE 13.9 U/L (0-35); ALBUMIN 3.69 g/dL (3.5-5.0); ASPARTATE AMINO TRANSFERASE 16.9 U/L (14-36); BILIRUBIN,TOTAL 0.64 mg/dL (0.2-1.3); CALCIUM 8.86 mg/dL (8.4-10.2); CARBON DIOXIDE 32.3 mmol/L (22-30.0); CHLORIDE 95.1 mmol/L (98-107); CREATININE 1.39 mg/dL (0.60-1.30); GLUCOSE 440.4 mg/dL (74-106); POTASSIUM 3.91 mmol/L (3.5-5.1); SODIUM 131.6 mmol/L (134.5-145); TOTAL PROTEIN 6.71 g/dL (6.3-8.2)
[2022-09-29 16:18] LABS: PROTHROMBIN TIME 11.5 SEC (9.3-11.0)
[2022-09-29 16:24] LABS: TROPONIN I 0.173 ng/ml (0.0000-0.120)
[2022-09-29 16:37] LABS: SARS COV-2 RNA RAPID NAAT NEGATIVE (NEGATIVE)
--- NOTE | 2022-09-29 16:59 | DI ---
EXAM: HHEST ONE-VIEW HISTORY: Cough COMPARISON: 11/15/2018 FINDINGS: Portable upright view of the chest obtained. The lungs are clear. Cardiac silhouette is normal. Pacing device present soft tissues of the left chest. Moderate-sized hiatal hernia is prese nt. IMPRESSION: Negative chest. No active cardiopulmonary disease
[2022-09-29 17:28] LABS: BILIRUBIN,URINE Negative (NEGATIVE); CLARITY,URINE Cloudy (CLEAR); COLOR,URINE Yellow (YELLOW); KETONES,URINE Negative (NEGATIVE); LEUKOCYTE ESTERASE ,URINE 3+ (NEGATIVE); NITRITE,URINE Negative (NEGATIVE); PROTEIN,URINE Negative (NEGATIVE); URINE, BLOOD 1+ (NEGATIVE); UROBILINOGEN,URINE 0.2 (0.2)
[2022-09-29] MEDS ORDERED: TYLENOL PO PRN (17:33)
[2022-09-29 17:53] LABS: GLUCOSE, URINE (UA) 3+ (NEGATIVE); SQUAMOUS EPITHELIAL CELL,UR NOT PRESENT (0-5)
[2022-09-29 17:54] LABS: BACTERIA,URINE 2+ (NOT PRESENT); URINE WBC, MICROSCOPIC 50-100 (0-2)
[2022-09-29] MEDS ORDERED: ROCEPHIN 2 GM VIAL 2 GM in SODIUM CHLORIDE 100ML 100 ML IV ONE (17:56)
[2022-09-29] MEDS ORDERED: ROCEPHIN 2 GM VIAL ONE (18:15)
[2022-09-29] MEDS: SODIUM CHLORIDE 1,000 ML IV SCH (18:18)
[2022-09-29] MEDS: HUMALOG SUBCUT PRN (20:18)
[2022-09-29] MEDS ORDERED: LEVEMIR SUBCUT SCH (21:30)
[2022-09-29] MEDS: FERROUS SULFATE PO SCH (22:31)
[2022-09-29] MEDS: PEPCID PO SCH (22:32)
[2022-09-29] MEDS: JARDIANCE PO SCH (22:32)
[2022-09-29] MEDS: COREG PO SCH (22:42)
[2022-09-29] MEDS: ELIQUIS PO SCH (22:42)
[2022-09-29] MEDS: LUMIGAN 0.03% EACHEYE SCH (22:42)
[2022-09-30 00:01] LABS: CREATINE KINASE < 20.0 U/L (30-135)
[2022-09-30 00:05] LABS: TROPONIN I 0.138 ng/ml (0.0000-0.120)
[2022-09-30 05:30] LABS: BASOPHILS % (AUTO) 0.3 % (0.0-3.0); EOSINOPHILS # (AUTO) 0.2 K/ul (0.0-0.7); EOSINOPHILS % (AUTO) 3.6 % (0.0-7.0); HEMATOCRIT 38.5 % (37.0-47.0); HEMOGLOBIN 11.9 g/dl (12.0-16.0); IMMATURE GRANULOCYTE % (AUTO) 0.6 % (0.0-5.0); LYMPHOCYTES # (AUTO) 1.3 K/uL (0.60-3.4); LYMPHOCYTES % (AUTO) 19.3 (10.0-50.0); MEAN CORPUSCULAR HEMOGLOBIN 28.2 pg (27.0-31.0); MEAN CORPUSCULAR HGB CONC 30.9 (31.8-35.4); MEAN CORPUSCULAR VOLUME 91.2 fl (81.0-99.0); MONOCYTES # (AUTO) 0.6 K/uL (0.4-2.0); MONOCYTES % (AUTO) 8.7 (0-10); NEUTROPHILS # (AUTO) 4.5 K/ul (2.0-6.9); NEUTROPHILS % (AUTO) 67.5 % (42.2-75.2); PLATELET COUNT 240 10^3/uL (140-440); RDW COEFFICIENT OF VARIATION 14.9 % (11.6-14.8); RED BLOOD COUNT 4.22 10^6/ul (4.20-5.40); WHITE BLOOD COUNT 6.68 K/ul (4.6-10.2)
[2022-09-30 05:41] LABS: ALANINE AMINOTRANSFERASE 10.9 U/L (0-35); ALBUMIN 3.3 g/dL (3.5-5.0); ASPARTATE AMINO TRANSFERASE 15.9 U/L (14-36); BILIRUBIN,TOTAL 0.34 mg/dL (0.2-1.3); BLOOD UREA NITROGEN 17.5 mg/dL (7-17); CALCIUM 8.41 mg/dL (8.4-10.2); CARBON DIOXIDE 30.3 mmol/L (22-30.0); CHLORIDE 102.6 mmol/L (98-107); CREATININE 1.07 mg/dL (0.60-1.30); GLUCOSE 204.2 mg/dL (74-106); POTASSIUM 3.36 mmol/L (3.5-5.1); SODIUM 137.5 mmol/L (134.5-145); TOTAL PROTEIN 6.22 g/dL (6.3-8.2)
[2022-09-30] MEDS: HUMALOG SUBCUT PRN ×3 (05:49→16:43)
[2022-09-30] MEDS: PRAVACHOL PO SCH (05:49)
[2022-09-30] MEDS: PEPCID PO SCH (08:23)
[2022-09-30] MEDS ORDERED: K-DUR PO ONE (08:23)
[2022-09-30] MEDS: FERROUS SULFATE PO SCH (08:24)
[2022-09-30] MEDS: IMDUR PO SCH (08:24)
[2022-09-30] MEDS: COREG PO SCH ×2 (08:24→16:43)
[2022-09-30] MEDS: ELIQUIS PO SCH ×2 (08:24→20:04)
[2022-09-30] MEDS: JARDIANCE PO SCH (08:24)
[2022-09-30] MEDS: SODIUM CHLORIDE 1,000 ML IV SCH (08:28)
[2022-09-30] MEDS: ROCEPHIN 1 GM/50 ML D5W 1 GM/50 ML BAG IV SCH (08:30)
--- NOTE | 2022-09-30 09:41 | PCM ---
Date of Service Date Seen by Provider: 09/30/22 Time Seen by Provider: 08:45 Admit Day/Time Admission Date: 09/29/22 Admission Time: 16:32 Reason for Admission Chief Complaint: SHAUNA, ACUTE HYPERGLYCEMIA, ELEVATED TROPONIN Hospital Provider Hospital Provider: ALVIN LUNA PA-C, [facility] Primary Care Physician Primary Care Physician: EVELYN STINSON MD History of Present Illness History of Present Illness: Patient is an 82 year old female with pmhx of DMT2, history of TX/CAD, PAF, COPD, CHF, glaucoma, osteoarthritis, chronic kidney disease, hyperlipidemia, and hypertension who presented to the ER for weakness and elevated blood sugars. Her medications have been adjusted in the last few months and her sugars have been consistently in the 400s. Patient states she is typically in the 100s. She felt very weak yesterday. States she was just recently treated for pneumonia. She also complains of urinary frequency. Denies chest pain. Per ERP she required significant help out of vehicle and into the cot. In the ER she was found to have glucose in the 400s, mildly elevated trop and bnp, normal CXR, SHAUNA with dehydration, and a UTI. She was given fluids and rocephin. She was admitted to obs on medsurg. Case Discussed With Case Discussed With: Patient's case was discussed with the ER Physicians, Dr. Tracy Burnham. 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 - Other specified glaucoma (ICD-10) Bursitis of shoulder, left M75.52 - Bursitis of left shoulder (ICD-10) CAD (coronary artery disease) I25.10 - Atherosclerotic heart disease of [place] coronary artery without angina pectoris (ICD-10) CKD (chronic kidney disease) stage 2, GFR 60-89 ml/min N18.2 - Chronic kidney disease, stage 2 (mild) (ICD-10) COPD (chronic obstructive pulmonary disease) J44.9 - Chronic obstructive pulmonary disease, unspecified (ICD-10) DM2 (diabetes mellitus, type 2) E11.9 - Type 2 diabetes mellitus without complications (ICD-10) Dyslipidemia E78.5 - Hyperlipidemia, unspecified (ICD-10) History of COVID-19 Z86.16 - Personal history of COVID-19 (ICD-10) HTN, goal below 130/80 I10 - Essential (primary) hypertension (ICD-10) Leg weakness, bilateral R29.898 - Other symptoms and signs involving the musculoskeletal system (ICD-10) Metabolic syndrome E88.81 - Metabolic syndrome (ICD-10) Morbid obesity E66.01 - Morbid (severe) obesity due to excess calories (ICD-10) Pacemaker Z95.0 - Presence of cardiac pacemaker (ICD-10) Paroxysmal atrial fibrillation I48.0 - Paroxysmal atrial fibrillation (ICD-10) Primary osteoarthritis of hips, bilateral M16.0 - Bilateral primary osteoarthritis of hip (ICD-10) Recurrent UTI N39.0 - Urinary tract infection, site not specified (ICD-10) Sick sinus syndrome due to SA node dysfunction I49.5 - Sick sinus syndrome (ICD-10) Stable angina I20.8 - Other forms of angina pectoris (ICD-10) Surgical History H/O left knee surgery Z98.890 - Other specified postprocedural states (ICD-10) Family History FATHER Stroke Mother Diabetes Social History Smoking and tobacco status: Never smoker Alcohol intake: never Substance use type: does not use Special vikram needs: No Agree to transfusion: Yes Adopted: No Caregiver/support person: No Foster care: No Household members: spouse Housing: house Marital status: M Lives independently: Yes Number of children: 2 Financial difficulty paying for basics: not very hard service: No assisted: No Current occupational status: retired Pets and animals: No History of recent travel: No (Denies recent travel or leaving the country) Sexually active: No Do you think of yourself as: straight/heterosexual Current gender identity: female Seatbelt use: always Drives intoxicated or rides with intoxicated inventory associate and driver: No Water heater temperature set < 120 degrees: Yes Working smoke detector in home: Yes Fire extinguisher in home: Yes Carbon monoxide detector in home: Yes Firearms in home: No Allergies Allergies Allergy/AdvReac Type Severity Reaction Status Date / Time morphine AdvReac Anaphylaxis Verified 09/22/22 15:10 Current Medications Home Medications bimatoprost 0.03 % eye drops (Lumigan) 0.01 drp BOTHEYES BEDTIME 07/05/18 [History Confirmed 09/29/22 Last Taken 08/09/22 21:00] nitroglycerin 0.4 mg sublingual tablet (Nitrostat) 0.4 mg sublingual Q5MIN X 3 DOSES PRN Chest Pain ##60 07/05/22 [Rx Confirmed 09/29/22 Last Taken Unknown] polyethylene glycol 3350 17 gram oral powder packet (Miralax) 17 g PO DAILY 08/18/22 [History Confirmed 09/29/22 Last Taken Unknown] apixaban 5 mg tablet (Eliquis) 5 mg PO Q12HR #60 tabs 09/22/22 [Rx Confirmed 09/29/22 Last Taken Unknown] bumetanide 2 mg tablet 2 mg PO QDAY #30 tabs 09/22/22 [Rx Confirmed 09/29/22 Last Taken Unknown] carvedilol 6.25 mg tablet (Coreg) 6.25 mg PO BID #60 tabs 09/22/22 [Rx Confirmed 09/29/22 Last Taken Unknown] empagliflozin 10 mg tablet (Jardiance) 10 mg PO QDAY #30 tabs 09/22/22 [Rx Confirmed 09/29/22 Last Taken Unknown] famotidine 40 mg tablet 40 mg PO QDAY #30 tabs 09/22/22 [Rx Confirmed 09/29/22 Last Taken Unknown] isosorbide mononitrate 60 mg tablet,extended release 24 hr 60 mg PO DAILY #30 tabs 09/22/22 [Rx Confirmed 09/29/22 Last Taken Unknown] losartan 100 mg tablet 100 mg PO DAILY #30 tabs 09/22/22 [Rx Confirmed 09/29/22 Last Taken Unknown] mirabegron 50 mg tablet,extended release 24 hr (Myrbetriq) 50 mg PO QDAY #30 tabs 09/22/22 [Rx Confirmed 09/29/22 Last Taken Unknown] oxybutynin chloride 5 mg tablet See Rx Instructions .Route .COMPLEX #30 tabs 09/22/22 [Rx Confirmed 09/29/22 Last Taken Unknown] pravastatin 40 mg tablet 40 mg PO DAILY LAB #30 tabs 09/22/22 [Rx Confirmed 09/29/22 Last Taken Unknown] ferrous sulfate 325 mg (65 mg iron) tablet,delayed release 325 mg PO QDAY #30 tabs 09/23/22 [Rx Confirmed 09/29/22 Last Taken Unknown] insulin detemir U-100 100 unit/mL subcutaneous solution (Levemir U-100 Insulin) 30 unit (0.3 mL) subcut QHS #10 mL 09/23/22 [Rx Confirmed 09/29/22 Last Taken Unknown] Home Acetaminophen (Acetaminophen 325 Mg Tablet) 650 mg PO Q4H PRN PRN Reason: Mild Pain Apixaban (Apixaban 5 Mg Tab) 5 mg PO Q12HR [facility] Last Admin: 09/30/22 08:24 Dose: 5 mg Bimatoprost (Bimatoprost 0.03% 2.5 Ml Opth Naty) 1 drop EACHEYE BEDTIME [facility] Last Admin: 09/29/22 22:42 Dose: 1 drop Bumetanide (Bumetanide 1 Mg Tablet) 2 mg PO DAILY [facility] Carvedilol (Carvedilol 6.25 Mg Tablet) 6.25 mg PO BIDWM [facility] Last Admin: 09/30/22 08:24 Dose: 6.25 mg Empagliflozin (Empagliflozin 10 Mg Tablet) 10 mg PO DAILY [facility] Last Admin: 09/30/22 08:24 Dose: 10 mg Famotidine (Famotidine 20 Mg Tablet) 40 mg PO DAILY [facility] Last Admin: 09/30/22 08:23 Dose: 40 mg Ferrous Sulfate (Ferrous Sulfate 324 Mg Tablet.) 324 mg PO DAILY [facility] Last Admin: 09/30/22 08:24 Dose: 324 mg CEFTRIAXONE/D5W 1 GM PREMIX (Rocephin 1 Gm/50 Ml D5w) 1 gm in 50 mls @ 75 mls/ hr IV DAILY [facility] Stop: 10/03/22 08:59 Last Admin: 09/30/22 08:30 Dose: 75 mls/hr VANCOMYCIN/WATER FOR INJ (PEG) (Vancomycin 1.5 Gram/300 Ml Premix) 1.5 gm in 300 mls @ 200 mls/hr IV DAILY [facility] Stop: 10/03/22 10:29 Insulin Detemir (Insulin Detemir 100 Units/Ml) 35 unit SUBCUT BEDTIME [facility] Insulin Human Lispro (Insulin Lispro 100 Unit/Ml (3 Ml) Vial) 0 unit SUBCUT PRN PRN; Protocol PRN Reason: Hyperglycemia Last Admin: 09/30/22 05:49 Dose: 4 unit Isosorbide Mononitrate (Isosorbide Mononitrate 30 Mg Tab.Er.24h) 60 mg PO DAILY [facility] Last Admin: 09/30/22 08:24 Dose: 60 mg Losartan Potassium (Losartan Potassium 100 Mg Tablet) 100 mg PO DAILY [facility] Pravastatin Sodium (Pravastatin Sodium 40 Mg Tablet) 40 mg PO DAILY LAB [facility] Last Admin: 09/30/22 05:49 Dose: 40 mg Sodium Chloride (0.9% Sodium Chloride 10 Ml Disp.Syrin) 1 syr IVF PRN PRN PRN Reason: To flush IV Discontinued Medications Sodium Chloride (Sodium Chloride) 1,000 mls @ 1,000 mls/hr IV [facility] Stop: 09/29/22 16:27 Last Admin: 09/29/22 15:59 Dose: 1,000 mls/hr Sodium Chloride (Sodium Chloride) 1,000 mls @ 75 mls/hr IV .[id number] [facility] Last Admin: 09/30/22 08:28 Dose: 75 mls/hr Ceftriaxone Sodium 2 gm/ (Sodium Chloride) 100 mls @ 100 mls/hr IV ONCE ONE Stop: 09/29/22 18:55 Last Admin: 09/29/22 18:17 Dose: 100 mls/hr Insulin Detemir (Insulin Detemir 100 Units/Ml) 30 unit SUBCUT BEDTIME [facility] Last Admin: 09/29/22 22:43 Dose: 30 unit Potassium Chloride (Potassium Chloride 20 Meq Tab) 20 meq PO ONCE ONE Stop: 09/30/22 08:24 Last Admin: 09/30/22 08:35 Dose: 20 meq Review of Systems Constitutional: Reports Fatigue and Weakness Head: Reports Normocephalic and Atraumatic Eyes: Denies Vision Changes Ears: Denies Pain Nose: Denies Post Nasal Drip or Congestion Mouth: Denies Sores or Pain Throat: Denies Sore Throat or Difficulty Swallowing Cardiovascular: Denies Chest pain, Chest Pressure or High Blood Pressure Respiratory: Reports Cough; Denies Shortness of air or Wheeze Gastrointestinal: Denies Nausea, Vomiting, Diarrhea or Constipation Genitourinary: Reports Frequency; Denies Dysuria Musculoskeletal: Denies Muscle Pain Dermatologic: Denies Rashes Endocrine: Reports Polyuria; Denies Cold intolerance, Heat intolerance or Excessive thirst Hematology: Denies Easy bleeding or Clotting Disorders Neurological: Reports Weakness; Denies Headache, Dizziness, Syncope or Speech difficulty Psychiatric: Denies Depression or Anxiety Physical examination Most Recent Vital Signs: Most Recent Vital Signs Temperature 97.4 F L 09/30/22 05:36 Temperature Source Oral 09/30/22 05:36 Temperature Source Infrared 09/29/22 15:06 Pulse Rate 78 09/30/22 05:36 Respiratory Rate 18 09/30/22 08:00 Blood Pressure 158/72 H 09/30/22 05:36 Blood Pressure Mean 100 09/30/22 05:36 Blood Pressure Left Arm 162/75 09/29/22 18:30 Blood Pressure Location Left Arm 09/30/22 05:36 Blood Pressure Position Supine 09/30/22 05:36 O2 Sat by Pulse Oximetry 97 09/30/22 05:36 Oxygen Delivery Method Room Air 09/30/22 05:36 Height 5 ft 7 in 09/30/22 07:14 Weight 253 lb 09/30/22 07:14 Telemetry Type Remote Telemetry 09/30/22 07:00 Telemetry Monitoring Continues 09/30/22 07:00 Telemetry Heart Rate 75 09/30/22 07:00 Telemetry SPO2 94 11/15/18 01:00 Telemetry Strip Reading AV Paced 09/30/22 07:00 Appearance: Positive Well-appearing, Well-nourished, Obese and Other (Alert and oriented to person and place. Does not know year. Sitting in bed eating breakfast without difficulty. Answers questions appropriately. ) Skin: Positive [place], Warm and Good Turgor; Negative Rashes HEENT: Positive Normocephalic, Atraumatic and Oral Mucous Moist Neck: Positive Supple and Midline Trachea Chest/Lungs: Positive Symmetrical With Equal Breath Sounds and Clear to Auscultation Bilaterally; Negative Rales, Rhonci or Wheezes Heart: Positive RRR GI/: Positive Soft, Nontender and Bowel Sounds Normal Musculoskeletal: Positive Other (+Generalized weakness ) Extremities: Positive Intact Peripheral Pulses; Negative Amputations Neurological: Positive Sensation Intact, Motor intact, Cranial Nerves Intact and Alert; Negative Muscle Strength 5/5 in Upper and Lower Extremities Bilaterally (3/5 bilaterally) Psychiatric: Positive Appropriate Mood and Appropriate Affect Labs This Visit Labs This Visit: Labs This Visit 09/29/22 09/29/22 09/29/22 15:45 16:45 17:39 WBC 6.34 RBC 4.49 Hgb 12.7 Hct 41.0 MCV 91.3 MCH 28.3 MCHC 31.0 L RDW Coeff of [place] 15.1 H Plt Count 252 Immature Gran % (Auto) 0.8 Neut % (Auto) 65.2 Lymph % (Auto) 21.9 [place] % (Auto) 9.0 Eos % (Auto) 2.8 Baso % (Auto) 0.3 Neut # (Auto) 4.1 Lymph # (Auto) 1.4 [place] # (Auto) 0.6 Eos # (Auto) 0.2 Baso # (Auto) 0.0 Immature Gran # (Auto) 0.1 PT 11.5 H INR 1.12 Sodium 131.6 L Potassium 3.91 Chloride 95.1 L Carbon Dioxide 32.3 H Anion Gap 8.11 BUN 20.0 H Creatinine 1.39 H Estimated GFR (MDRD) 36.00 BUN/Creatinine Ratio 14.38 Glucose 440.4 H Hemoglobin A1c 8.0 H Lactic Acid 1.89 Calcium 8.86 Total Bilirubin 0.64 AST 16.9 ALT 13.9 Alkaline Phosphatase 96.0 Total Creatine Kinase < 20.0 L Troponin I 0.173 H C-Reactive Prot, Quant 30 H NT-Pro-B Natriuret Pep 2770 H Total Protein 6.71 Albumin 3.69 Globulin 3.02 Albumin/Globulin Ratio 1.22 Procalcitonin < 0.05 Urine Color Yellow Urine Clarity Cloudy Urine pH 5.0 Ur Specific [place] <=1.005 Urine Protein Negative Urine Glucose (UA) 3+ H Urine Ketones Negative Urine Blood 1+ H Urine Nitrite Negative Urine Bilirubin Negative Urine Urobilinogen 0.2 Ur Leukocyte Esterase 3+ H Urine Microscopic RBC 10-20 Urine Microscopic WBC 50-100 Ur Squamous Epith Cells Not present Urine Bacteria 2+ SARS CoV-2 RNA Rapid NITO Negative 09/29/22 09/29/22 09/30/22 17:50 23:35 05:12 WBC 6.68 RBC 4.22 Hgb 11.9 L Hct 38.5 MCV 91.2 MCH 28.2 MCHC 30.9 L RDW Coeff of [place] 14.9 H Plt Count 240 Immature Gran % (Auto) 0.6 Neut % (Auto) 67.5 Lymph % (Auto) 19.3 [place] % (Auto) 8.7 Eos % (Auto) 3.6 Baso % (Auto) 0.3 Neut # (Auto) 4.5 Lymph # (Auto) 1.3 [place] # (Auto) 0.6 Eos # (Auto) 0.2 Baso # (Auto) 0.0 Immature Gran # (Auto) 0.0 PT INR Sodium 137.5 Potassium 3.36 L Chloride 102.6 Carbon Dioxide 30.3 H Anion Gap 7.96 BUN 17.5 H Creatinine 1.07 Estimated GFR (MDRD) 49.00 BUN/Creatinine Ratio 16.35 Glucose 204.2 H D Hemoglobin A1c Lactic Acid Calcium 8.41 Total Bilirubin 0.34 AST 15.9 ALT 10.9 Alkaline Phosphatase 85.0 Total Creatine Kinase < 20.0 L Troponin I 0.150 H 0.138 H C-Reactive Prot, Quant NT-Pro-B Natriuret Pep Total Protein 6.22 L Albumin 3.30 L Globulin 2.92 Albumin/Globulin Ratio 1.13 Procalcitonin Urine Color Urine Clarity Urine pH Ur Specific [place] Urine Protein Urine Glucose (UA) Urine Ketones Urine Blood Urine Nitrite Urine Bilirubin Urine Urobilinogen Ur Leukocyte Esterase Urine Microscopic RBC Urine Microscopic WBC Ur Squamous Epith Cells Urine Bacteria SARS CoV-2 RNA Rapid NITO Microbiology This Visit 09/29/22 16:45 Urine,Clean Catch Urine Culture - Preliminary Imaging Imagining: EXAM: [facility] ONE-VIEW HISTORY: Cough COMPARISON: 11/15/2018 FINDINGS: Portable upright view of the chest obtained. The lungs are clear. Cardiac silhouette is normal. Pacing device present soft tissues of the left chest. Moderate-sized hiatal hernia is present. IMPRESSION: Negative chest. No active cardiopulmonary disease Review Statement Review Statement: I have independently reviewed and interpreted the labs/EKGs/imaging that were ordered by the ER provider. I have reviewed all outside records that are available currently in our EMR including imaging/notes/labs from previous visits. Plan Plan: A&P: 1. Bacteremia in setting of gram positive cocci - Will add vanc to rocephin. Await final. Repeat blood cultures x2 today. 2. Urinary tract infection - UC showing heavy growth of gram negative. Will continue rocephin. 3. SHAUNA, stage I due to dehydration - Improved. Cr at baseline today. Will stop fluids. Will continue home diuretics. 4. Hypokalemia - Replaced. Repeat cmp in AM. 5. Hyperglycemia in setting of DMT2 - Glucose has been in 400s. A1c 8. Glucose improved today in 200s with sliding scale. Concern for adding sliding scale at home as it seems patient and are having difficulty with her current regimen. Will increase her home levemir to 35 units. 6. DMT2, chronic - See above 7. Hyperlipidemia - Continue pravastatin. 8. Hypertension - chronic stable. Continue losartan, coreg, isosorbide. 9. Paroxysmal a fib - chronic, stable. Continue eliquis. 10. Heart failure with mildly reduced EF - EF 45% on echo 08/18. Will stop fluids and continue bumetanide. Monitor fluid status. Continue BB and arb. 11. Asthenia, acute on chronic - PT/OT eval. Patient feels she will improve enough to go home. She does not want to consider a assisted at [facility]. DVT Prophylaxis: Continue Eliquis Time Spent: Greater than 80 minutes spent with patient, 50% of the time spent with this patient was devoted to counseling and coordination of care. Advanced Care Plannin minutes spent discussing advance care planning. FULL CODE Admit to: Change status to inpatient Discussed Plan of Care with Dr. Stinson. Medications Medication Orders: Medications Ordered Category Date Time Status 0.9 % Sodium Chloride [Saline Flush] MEDS 09/29/22 15:16 Active 1 syr IVF PRN PRN Acetaminophen [Tylenol] MEDS 09/29/22 17:33 Active 650 mg PO Q4H PRN Apixaban [Eliquis] MEDS 09/29/22 21:20 Active 5 mg PO Q12HR Bimatoprost Opth [Lumigan 0.03%] MEDS 09/29/22 21:30 Active 1 drop EACHEYE BEDTIME Carvedilol [Coreg] MEDS 09/29/22 21:30 Active 6.25 mg PO BIDWM Ceftriaxone/D5w 1 gm Premix [Rocephin 1 gm/50 ml D5w] MEDS 09/30/22 09:00 Active 1 gm in 50 ml IV DAILY Empaglifozin [Jardiance] MEDS 09/29/22 21:30 Active 10 mg PO DAILY Famotidine [Pepcid] MEDS 09/29/22 21:30 Active 40 mg PO DAILY Ferrous Sulfate MEDS 09/29/22 22:17 Active 324 mg PO DAILY Insulin Detemir [Levemir] MEDS 09/29/22 21:30 Active 30 unit SUBCUT BEDTIME Insulin Lispro [Humalog] MEDS 09/29/22 17:42 Active See Protocol SUBCUT PRN PRN Isosorbide Mononitrate [Imdur] MEDS 09/30/22 09:00 Active 60 mg PO DAILY Pravastatin Sodium [Pravachol] MEDS 09/30/22 06:00 Active 40 mg PO DAILY LAB Sodium Chloride 0.9% [Sodium Chloride] 1,000 ml MEDS 09/29/22 18:00 Active IV 75 mls/hr
[2022-09-30] MEDS: VANCOMYCIN 1.5 GRAM/300 ML PREMIX 1.5 GM/300 ML BAG IV SCH (11:38)
[2022-09-30] MEDS: COZAAR PO SCH (11:38)
[2022-09-30] MEDS: BUMEX PO SCH (11:39)
--- NOTE | 2022-09-30 13:13 | RS.PTINEVL ---
Subjective Patient information Date of Evaluation: 09/30/22 Date of Arrival on Unit: 09/29/22 Admitted From:: Home Diagnosis: Acute kidney injury, difficulty walking Usual Living Arrangement: With Spouse Living Arrangement Comments: pt currently being seen by [facility] for therapy and senior care Environment: [place] Medical History: Hypertension, COPD, Diabetes and Arthritis Medical History Comments:: CAD, chronic kidney disease, anemia, glaucoma, Afib, pacemaker, SSS, angina Surgical History: Knee Replacement (left) Medications: see chart Subjective Information/ Patient Comments:: pt states she was able to walk short distances in her home such as from bed to bathroom with rwx independently with only walking beside her. pt's reports that therapy has been coming to work with her on walking. Level of function Prior to this admission, the patient could do the following:: Partially Dependent Ambulation Current Level of Function: Partially Dependent Current Equipment Used at Home: Walker, wheelchair, lifted toilet seat, Interventions Objective Patient Orientation: Person and Place Current Interventions: IV's and Telemetry Observation: pt with small open area on the top of L buttocks. Range of Motion ROM Right Upper Extremity AROM: WFL's Left Upper Extremity AROM: WFL's Right Lower Extremity AROM: WFL's Left Lower Extremity AROM: WFL's Muscle Strength Muscle Strength Right Upper Extremity: Mild Weakness (grossly 4/5) Left Upper Extremity: Mild Weakness (grossly 4/5) Right Lower Extremity: Mild Weakness (hip flex 4-/5, knee flex/ext 4/5, ankle DF/PF 4-/5) Left Lower Extremity: Mild Weakness (hip flex 4-/5, knee flex/ext 4/5, ankle DF/PF 4-/5) Sensation Sensation Right Upper Extremity: Intact/Normal Left Upper Extremity: Intact/Normal Right Lower Extremity: Intact/Normal Left Lower Extremity: Intact/Normal Palpation Palpation Findings: None/Normal Balance Sitting Balance and Reactions Static Sitting Balance: Fair Dynamic Sitting Balance: Fair Standing Balance and Reactions Static Standing Balance: Poor Dynamic Standing Balance: Poor Standing Equilibrium Reactions: Delayed Left and Delayed Right Standing Protective Reactions: Delayed Left and Delayed Right Functional Mobility Bed Mobility Rolling R/L: Mod Assist and 1 person assist Supine to Sit: Mod Assist and 1 person assist Transfers Sit to Stand: Mod Assist and 2 person assist Stand to Sit: Mod Assist and 2 person assist Stand Pivot Transfers: Mod Assist and 2 person assist Safety Awareness Safety Awareness: Poor JERMAINE INDEX SCORE: n/a Ambulation Ambulation Assistive Device Used: Rolling Walker Orthotic/Prosthetic Device: No Distance: 2-3 steps Assistance needed with Ambulation: Mod Assist, 1 person assist and 2 person assist Gait Deviations: Shuffling gait, Forward posture and Short stride Ambulation Comments: pt stated she could not amb any further and therapist had to bring chair up to pt. Factors Affecting Ambulation: Decreased Balance, Weakness, Decreased Safety, Cognitive Status and Limited Endurance Treatment time Time with patient Length of Evaluation: 19 Total treatment time: 28 Patient Education Education Patient Education: Home Exercise Program and Education of Plan of Care Teaching Recipient: Patient and Family ( present for eval) Teaching Methods: Discussion and Demonstration Assessment Assessment Problem List:: Decreased level of function, Requires training/education, Decreased safety/Risk of falls, Weakness and Cognitive status limits abilities Rehab Potential: Fair Further Therapy Indicated?: Yes Candidate for Swing Bed for Therapy Services?: Feel pt is not a candidate for swing bed for therapy due to 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 Evaluation Complexity: HISTORY: Medium, EXAM OF BODY SYSTEMS: Medium, CLINICAL PRESENTATION: Medium and CLINICAL DECISION MAKING: Medium Patient's Goal(s): I want to go home. Short Term Goals GOAL #1: pt demonstrate rolling in bed with bedrails independently. Goal to be met by: 10/03/22 GOAL #2: Transfer sup to/from sit min x 1 Goal to be met by: 10/03/22 GOAL #3: Transfer sit to/from stand min x 1 Goal to be met by: 10/03/22 GOAL #4: pt amb 30ft with rwx with min x 1 Goal to be met by: 10/03/22 GOAL #5: Improve dyn stand balance fair- Goal to be met by: 10/03/22 GOAL #6: Improve BLE strength 4/5 Goal to be met by: 10/03/22 Photographer'S Assistant Goals GOAL #1: pt amb functional household distances in the home with rwx CGA Goal to be met by: 10/05/22 GOAL #2: pt transfer sup to/from sit to/from stand CGA Goal to be met by: 10/05/22 GOAL #3: pt independent with rolling and scooting in bed. Goal to be met by: 05/10/23 Plan Plan of Care: Therapeutic EX and Therapeutic Activity Other:: gait training Frequency of Treatment: 1-2 X day, as tolerated Duration of Treatment: 5 days Anticipated Discharge Destination: undetermined Treatment Diagnosis (ICD 10 Codes): difficulty walking R 26.2 impaired balance R 26.81 weakness m62.81 Has the Physician been added for Co-signature?: Yes
--- NOTE | 2022-09-30 15:23 | RS.OTINEVL ---
Subjective Patient information Date of Evaluation: 09/30/22 Date of Arrival on Unit: 09/29/22 Admitted From:: Home Diagnosis: Impaired balance, weakness, gait difficulty PRECAUTIONS: weakness, SOA Usual Living Arrangement: With Spouse Living Arrangement Comments: pt currently being seen by [facility] for therapy and residential Environment: Ramp Medical History: Hypertension, COPD, Diabetes and Arthritis Medical History Comments:: CAD, chronic kidney disease, anemia, glaucoma, Afib, pacemaker, SSS, angina Surgical History: Knee Replacement (left) Surgical History Comments:: Pacemaker Medications: see chart Subjective Information/ Patient Comments:: "It's been a long time." (referring to walking) Level of function Prior to this admission, the patient could do the following:: Partially Dependent Ambulation Abilities prior to this admission: cooks and does tasks around the home. Pt sits in a WC most of the time. Current Level of Function: Partially Dependent Current Equipment Used at Home: Walker, wheelchair, lifted toilet seat, Interventions Objective Patient Orientation: Person, Place, Time and Situation Current Interventions: IV's, Oxygen and Telemetry Observation: Pt requires moderate assistance for sit to stand from EOB and BSC. Pt is maximum assistance for personal hygiene. Interventions ROM Right Upper Extremity AROM: WFL's Left Upper Extremity AROM: WFL's Strength Right Upper Extremity: Mild Weakness Left Upper Extremity: Mild Weakness Sensation Right Upper Extremity: Intact/Normal Left Upper Extremity: Intact/Normal Balance Sitting Balance Static Sitting Balance: Good Dynamic Sitting Balance: Good Standing Balance Static Standing Balance: Poor Dynamic Standing Balance: Poor ADL Skills Self Feeding Self Feeding: Independent Grooming Grooming: Min Assist Grooming Set-up: Sitting Bathing Bathing UE: Min Assist Bathing LE: Mod Assist Bathing Set-up: Bedside Dressing Dressing UE: Min Assist Dressing LE: Max Assist Toilet Management Toilet Hygiene: Max Assist and 1 person assist Toilet Clothing Management: Max Assist and 1 person assist Functional Mobility Safety Awareness Safety Awareness: Fair JERMAINE INDEX SCORE: . Additional Treatment Performed Time with patient Length of Evaluation: 18 Total treatment time: 20 Activities Would you be interested in leaving your room for activities?: Yes Would you enjoy group activities?: Yes Do you have difficulty with your vision?: Yes Patient Interests:: Watching Television and Visiting/Socializing Patient Education Patient Education: Home Safety and Education of Plan of Care Teaching Recipient: Patient and Family Teaching Methods: Discussion and Demonstration Assessment Problem List:: Decreased level of function and Weakness Rehab Potential: Fair Candidate for Swing Bed for Therapy Services?: no. Needs more time. Evaluation Complexity: HISTORY: Medium, EXAM OF BODY SYSTEMS: Medium and CLINICAL DECISION MAKING: Medium Patient's Goal(s): To be able to go home and her care for her. Short Term Goals Goals GOAL 1: Pt to be CGA for brushing her teeth standing at the sink. Goal to be met by: 10/03/22 Progress towards goal: Not Met Comments: ADL's in sitting GOAL 2: Pt to be (I) with AE for BLE dressing. Goal to be met by: 10/03/22 Progress towards goal: No Change Comments: Spouse performs GOAL 3: Pt to demonstrate understanding of AE. Goal to be met by: 10/03/22 Progress towards goal: Not Met GOAL 4: Pt to increase dyn. std. bal. to Fair+. Goal to be met by: 10/03/22 Progress towards goal: Not Met [facility] Goals GOAL 1: Pt to be (I) with adaptive equipment for BLE dressing. Goal to be met by: 10/04/22 Progress towards goal: Not Met GOAL 2: Pt to increase dyn. std. bal. to G- to increase safety. Goal to be met by: 10/04/22 Progress towards goal: Not Met GOAL 3: Pt to be SUP for standing at sink to brush her teeth. Goal to be met by: 10/04/22 Progress towards goal: Not Met Plan Plan of Care: Therapeutic EX, Therapeutic Activity and Self-Care/Home Management Frequency of Treatment: 1-2 X day, as tolerated Duration of Treatment: 1 Week Anticipated Discharge Destination: [facility] Treatment Diagnosis (ICD 10 Codes): Weakness R53.1, Z74.1 Need for assistance with personal care. Has the Physician been added for Co-signature?: Yes
[2022-09-30] MEDS ORDERED: HUMALOG SUBCUT ONE (19:32)
[2022-09-30] MEDS: LEVEMIR SUBCUT SCH (20:04)
[2022-09-30] MEDS: LUMIGAN 0.03% EACHEYE SCH (20:05)
[2022-10-01 05:22] LABS: BASOPHILS % (AUTO) 0.6 % (0.0-3.0); EOSINOPHILS # (AUTO) 0.2 K/ul (0.0-0.7); EOSINOPHILS % (AUTO) 3.5 % (0.0-7.0); HEMATOCRIT 43.8 % (37.0-47.0); HEMOGLOBIN 12.9 g/dl (12.0-16.0); IMMATURE GRANULOCYTE # (AUTO) 0.1 (0.0-1.0); LYMPHOCYTES # (AUTO) 1.5 K/uL (0.60-3.4); LYMPHOCYTES % (AUTO) 23.9 (10.0-50.0); MEAN CORPUSCULAR HEMOGLOBIN 28.5 pg (27.0-31.0); MEAN CORPUSCULAR HGB CONC 29.5 (31.8-35.4); MEAN CORPUSCULAR VOLUME 96.7 fl (81.0-99.0); MONOCYTES # (AUTO) 0.5 K/uL (0.4-2.0); MONOCYTES % (AUTO) 8.7 (0-10); NEUTROPHILS # (AUTO) 3.9 K/ul (2.0-6.9); NEUTROPHILS % (AUTO) 62.3 % (42.2-75.2); PLATELET COUNT 194 10^3/uL (140-440); RDW COEFFICIENT OF VARIATION 15.3 % (11.6-14.8); RED BLOOD COUNT 4.53 10^6/ul (4.20-5.40); WHITE BLOOD COUNT 6.24 K/ul (4.6-10.2)
[2022-10-01 06:15] LABS: ALANINE AMINOTRANSFERASE 10.2 U/L (0-35); ALBUMIN 3.3 g/dL (3.5-5.0); ALKALINE PHOSPHATASE 81.1 U/L (53-141); ASPARTATE AMINO TRANSFERASE 15.2 U/L (14-36); BILIRUBIN,TOTAL 0.34 mg/dL (0.2-1.3); CALCIUM 8.58 mg/dL (8.4-10.2); CARBON DIOXIDE 28.8 mmol/L (22-30.0); CHLORIDE 104.8 mmol/L (98-107); CREATININE 0.93 mg/dL (0.60-1.30); GLUCOSE 194.7 mg/dL (74-106); POTASSIUM 3.45 mmol/L (3.5-5.1); SODIUM 137.9 mmol/L (134.5-145); TOTAL PROTEIN 6.14 g/dL (6.3-8.2)
[2022-10-01] MEDS: PRAVACHOL PO SCH (06:15)
[2022-10-01] MEDS: HUMALOG SUBCUT PRN ×4 (06:15→20:37)
[2022-10-01] MEDS: ROCEPHIN 1 GM/50 ML D5W 1 GM/50 ML BAG IV SCH (08:23)
[2022-10-01] MEDS: BUMEX PO SCH (08:28)
[2022-10-01] MEDS: FERROUS SULFATE PO SCH (08:29)
[2022-10-01] MEDS: PEPCID PO SCH (08:29)
[2022-10-01] MEDS: IMDUR PO SCH (08:29)
[2022-10-01] MEDS: JARDIANCE PO SCH (08:30)
[2022-10-01] MEDS: COREG PO SCH ×2 (08:30→16:43)
[2022-10-01] MEDS: COZAAR PO SCH (08:31)
[2022-10-01] MEDS: ELIQUIS PO SCH ×2 (08:31→20:35)
[2022-10-01] MEDS: VANCOMYCIN 1.5 GRAM/300 ML PREMIX 1.5 GM/300 ML BAG IV SCH (10:19)
--- NOTE | 2022-10-01 11:27 | PCM.PROG ---
Date/Time Seen Date Seen by Provider: 10/01/22 Time Seen by Provider: 09:00 Provider Provider: [facility] Chief Complaint Chief Complaint: SHAUNA, ACUTE HYPERGLYCEMIA, ELEVATED TROPONIN Subjective Subjective: Patient states she's feeling better today. Has been eating and drinking well. When asked how she's been getting to the bedside commode she states she's been doing well with that. She admits it takes two people to assist her at this time. has been confused about insulin regimen since they've been home from group home. He has been giving her the levemir at night but it is difficult to draw up as the solution is clear. He also was discharged with a novolog pen but he hasn't used it because he was confused regarding the sliding scale instructions. After discussing in depth with him regarding the sliding scale, he feels that he could do it at home. Also discussed changing his levemir solution to a kwikpen for easier dosing, as this is a huge medication error risk for them. He feels that would simplify things as well. Objective Appearance: Positive Well-appearing, Well-nourished and Obese Chest/Lungs: Positive Symmetrical With Equal Breath Sounds and Clear to Auscultation Bilaterally; Negative Rales, Rhonci or Wheezes Heart: Positive RRR GI/: Positive Soft, Nontender and Bowel Sounds Normal Musculoskeletal: Positive Other (Generalized weakness) Neurological: Positive Cranial Nerves Intact, Alert, Oriented and Other (+generalized weakness, 3/5 strength in upper and lower ext lea. Patient has trace-1+ pitting edema lea lower ext. ); Negative Muscle Strength 5/5 in Upper and Lower Extremities Bilaterally Vital Signs Vital Signs: Vital Signs: Last 24 Hours 09/30/22 13:00 09/30/22 13:43 09/30/22 13:00 Temperature 97.7 F Temperature Source Temporal Artery Scan Pulse Rate 78 Respiratory Rate 18 Blood Pressure 118/53 L Blood Pressure Mean 74 Blood Pressure Location Left Arm Blood Pressure Position Sitting O2 Sat by Pulse Oximetry 98 Oxygen Delivery Method Room Air Telemetry Type Remote Telemetry Remote Telemetry Telemetry Monitoring Continues Continues Telemetry Heart Rate 75 75 Telemetry Strip Reading A/V Paced AV Paced 09/30/22 18:00 09/30/22 19:00 09/30/22 20:00 Temperature 97.6 F Temperature Source Oral Pulse Rate 60 Respiratory Rate 18 18 Blood Pressure 127/52 L Blood Pressure Mean 77 Blood Pressure Location Left Arm Blood Pressure Position Sitting O2 Sat by Pulse Oximetry 94 L Oxygen Delivery Method Room Air Room Air Telemetry Type Remote Telemetry Telemetry Monitoring Continues Telemetry Heart Rate 66 Telemetry Strip Reading AV Paced 09/30/22 21:07 10/01/22 01:00 10/01/22 06:00 Temperature 98.0 F 97.4 F L Temperature Source Oral Temporal Artery Scan Pulse Rate 67 78 Respiratory Rate 18 18 Blood Pressure 140/70 166/79 H Blood Pressure Mean 93 108 Blood Pressure Location Left Arm Blood Pressure Position Supine O2 Sat by Pulse Oximetry 96 95 Oxygen Delivery Method Room Air Room Air Telemetry Type Remote Telemetry Telemetry Monitoring Continues Telemetry Heart Rate 88 Telemetry Strip Reading AV paced 10/01/22 07:00 10/01/22 07:58 Temperature Temperature Source Pulse Rate Respiratory Rate 16 Blood Pressure Blood Pressure Mean Blood Pressure Location Blood Pressure Position O2 Sat by Pulse Oximetry Oxygen Delivery Method Telemetry Type Remote Telemetry Telemetry Monitoring Continues Telemetry Heart Rate 80 Telemetry Strip Reading AV PACED Lab Results Lab Results: Lab Results: Last 24 Hours 10/01/22 10/01/22 05:55 05:20 WBC 6.24 RBC 4.53 Hgb 12.9 Hct 43.8 MCV 96.7 D MCH 28.5 MCHC 29.5 L RDW Coeff of Jaison 15.3 H Plt Count 194 Immature Gran % (Auto) 1.0 Neut % (Auto) 62.3 Lymph % (Auto) 23.9 Iron % (Auto) 8.7 Eos % (Auto) 3.5 Baso % (Auto) 0.6 Neut # (Auto) 3.9 Lymph # (Auto) 1.5 Iron # (Auto) 0.5 Eos # (Auto) 0.2 Baso # (Auto) 0.0 Immature Gran # (Auto) 0.1 Sodium 137.9 Potassium 3.45 L Chloride 104.8 Carbon Dioxide 28.8 Anion Gap 7.75 BUN 16.0 Creatinine 0.93 Estimated GFR (MDRD) 58.00 BUN/Creatinine Ratio 17.20 Glucose 194.7 H Calcium 8.58 Total Bilirubin 0.34 AST 15.2 ALT 10.2 Alkaline Phosphatase 81.1 Total Protein 6.14 L Albumin 3.30 L Globulin 2.84 Albumin/Globulin Ratio 1.16 Additional Comments Additional Comments: I have independently reviewed and interpreted the labs/EKGs/imaging ordered during this hospital stay. I have reviewed outside records that are available in our EMR that pertain to medical stay including imaging/notes/labs from previous visits. Active Medications Active Medications: Medications Generic Name Dose Route Start Last Admin Trade Name Freq PRN Reason Stop Dose Admin Acetaminophen 650 mg 09/29/22 17:33 Acetaminophen 325 Mg Tablet PO Q4H PRN Mild Pain Apixaban 5 mg 09/29/22 21:20 10/01/22 08:31 Apixaban 5 Mg Tab PO 5 mg Q12HR SUKHJINDER Administration Bimatoprost 1 drop 09/29/22 21:30 09/30/22 20:05 Bimatoprost 0.03% 2.5 Ml Opth Naty EACHEYE 1 drop BEDTIME SUKHJINDER Administration Bumetanide 2 mg 09/30/22 11:00 10/01/22 08:28 Bumetanide 1 Mg Tablet PO 2 mg DAILY SUKHJINDER Administration Carvedilol 6.25 mg 09/29/22 21:30 10/01/22 08:30 Carvedilol 6.25 Mg Tablet PO 6.25 mg BIDWM SUKHJINDER Administration Empagliflozin 10 mg 09/29/22 21:30 10/01/22 08:30 Empagliflozin 10 Mg Tablet PO 10 mg DAILY SUKHJINDER Administration Famotidine 40 mg 09/29/22 21:30 10/01/22 08:29 Famotidine 20 Mg Tablet PO 40 mg DAILY SUKHJINDER Administration Ferrous Sulfate 324 mg 09/29/22 22:17 10/01/22 08:29 Ferrous Sulfate 324 Mg Tablet. PO 324 mg DAILY SUKHJINDER Administration VANCOMYCIN/WATER FOR INJ (PEG) 1.5 gm in 300 mls @ 200 mls/hr 09/30/22 10:30 10/01/22 10:19 Vancomycin 1.5 Gram/300 Ml Premix IV 10/03/22 10:29 200 mls/hr DAILY SUKHJINDER Administration Ertapenem 1 gm/ Sodium 100 mls @ 200 mls/hr 10/01/22 10:50 Chloride IV 10/04/22 10:49 DAILY SUKHJINDER Insulin Detemir 35 unit 09/30/22 21:00 09/30/22 20:04 Insulin Detemir 100 Units/Ml SUBCUT 35 unit BEDTIME SUKHJINDER Administration Insulin Human Lispro 0 unit 09/29/22 17:42 10/01/22 06:15 Insulin Lispro 100 Unit/Ml (3 Ml) Vial SUBCUT 4 unit PRN PRN Administration Hyperglycemia Protocol Isosorbide Mononitrate 60 mg 09/30/22 09:00 10/01/22 08:29 Isosorbide Mononitrate 30 Mg Tab.Er.24h PO 60 mg DAILY SUKHJINDER Administration Losartan Potassium 100 mg 09/30/22 11:00 10/01/22 08:31 Losartan Potassium 100 Mg Tablet PO 100 mg DAILY SUKHJINDER Administration Pravastatin Sodium 40 mg 09/30/22 06:00 10/01/22 06:15 Pravastatin Sodium 40 Mg Tablet PO 40 mg DAILY LAB SUKHJINDER Administration Saccharomyces Boulardii 250 mg 10/01/22 21:00 Saccharomyces Boulardii 250 Mg Capsule PO BID SUKHJINDER Sodium Chloride 1 syr 09/29/22 15:16 0.9% Sodium Chloride 10 Ml Disp.Syrin IVF PRN PRN To flush IV Plan Plan: A&P: 1. Bacteremia in setting of gram positive cocci - Repeat cultures negative so far. Continue vanc. Await final. 2. Complicated Urinary tract infection due to ESBL - UC showing ESBL+ e coli. Stop rocephin. Start Invanz 1 gm IV daily. Contact Isolation. 3. SHAUNA, stage I due to dehydration - Resolved Cr at baseline today. Fluids stopped 09/30. Continue home diuretics. 4. Hypokalemia - Resolved. Repeat cmp in AM. 5. Hyperglycemia in setting of DMT2 - Improved. Glucose has been in 400s at home. A1c 8. Levemir increased to 35 units at night. Sliding scale with meals. Will need to address meds upon discharge, patient will need levemir pen prescribed. Also he has a novolog pen already but will need clear instructions and a printed scale. 6. DMT2, chronic - See above 7. Hyperlipidemia - Continue pravastatin. 8. Hypertension - chronic stable. Continue losartan, coreg, isosorbide. 9. Paroxysmal a fib - chronic, stable. Continue eliquis. 10. Heart failure with mildly reduced EF - EF 45% on echo 08/18. Continue bumetanide. Monitor fluid status. Continue BB and arb. 11. Asthenia, acute on chronic - PT/OT eval. Patient feels she will improve enough to go home. She does not want to consider a group home at this time. Russel rodriguez is also against a group home and feel they can manage at home. She will require a new order to resume home health upon discharge. 12. Elevated troponins, likely NSTEMI type II in setting of renal disease and infection - Trops trended down. Patient denies chest pain. EKG at baseline. DVT Prophylaxis: Continue Eliquis Discussed Plan of Care with Dr. Benjamin. Review Statement Review Statement: I have personally discussed and reviewed the patient's visit/currently labs/imaging/decision making with Dr. Benjamin, my supervising attending. Greater that 50 minutes spent with patient, 50% of the time spent with this patient was devoted to counseling and coordination of care.
[2022-10-01] MEDS: INVANZ 1 GM in SODIUM CHLORIDE 100ML 100 ML IV SCH (11:53)
[2022-10-01] MEDS: FLORASTOR PO SCH (20:35)
[2022-10-01] MEDS: LEVEMIR SUBCUT SCH (20:36)
[2022-10-01] MEDS: LUMIGAN 0.03% EACHEYE SCH (20:36)
[2022-10-02] MEDS: PRAVACHOL PO SCH (05:28)
[2022-10-02] MEDS: HUMALOG SUBCUT PRN ×4 (05:28→20:59)
[2022-10-02] MEDS: INVANZ 1 GM in SODIUM CHLORIDE 100ML 100 ML IV SCH (08:06)
[2022-10-02] MEDS: VANCOMYCIN 1.5 GRAM/300 ML PREMIX 1.5 GM/300 ML BAG IV SCH (09:24)
[2022-10-02] MEDS: IMDUR PO SCH (09:28)
[2022-10-02] MEDS: BUMEX PO SCH (09:28)
[2022-10-02] MEDS: FLORASTOR PO SCH ×2 (09:29→20:16)
[2022-10-02] MEDS: COZAAR PO SCH (09:29)
[2022-10-02] MEDS: PEPCID PO SCH (09:29)
--- NOTE | 2022-10-02 09:29 | PCM.PROG ---
Date/Time Seen Date Seen by Provider: 10/02/22 Time Seen by Provider: 09:00 Provider Provider: [facility], [facility] Chief Complaint Chief Complaint: SHAUNA, ACUTE HYPERGLYCEMIA, ELEVATED TROPONIN Subjective Subjective: Patient states she's feeling well today. No events overnight. Eating oatmeal during evaluation. She has no complaints. Objective Appearance: Positive Well-appearing, Well-nourished and Obese Chest/Lungs: Positive Symmetrical With Equal Breath Sounds and Clear to Auscultation Bilaterally; Negative Rales, Rhonci or Wheezes Heart: Positive RRR GI/: Positive Soft, Nontender and Bowel Sounds Normal Musculoskeletal: Positive Other (Generalized weakness) Neurological: Positive Cranial Nerves Intact, Alert, Oriented and Other (+generalized weakness, 3/5 strength in upper and lower ext lea. Patient has trace-1+ pitting edema lea lower ext. ); Negative Muscle Strength 5/5 in Upper and Lower Extremities Bilaterally Vital Signs Vital Signs: Vital Signs: Last 24 Hours 10/01/22 14:00 10/01/22 13:00 10/01/22 19:00 Temperature 97.4 F L Temperature Source Temporal Artery Scan Pulse Rate 85 Respiratory Rate 15 Blood Pressure 124/60 Blood Pressure Mean 81 Blood Pressure Location Left Arm Blood Pressure Position Supine O2 Sat by Pulse Oximetry 100 Oxygen Delivery Method Room Air Telemetry Type Remote Telemetry Remote Telemetry Telemetry Monitoring Continues Continues Telemetry Heart Rate 60 79 Telemetry Strip Reading AV paced AV PACED 10/01/22 21:58 10/02/22 01:00 10/02/22 05:16 Temperature 97.8 F 98.2 F Temperature Source Temporal Artery Scan Oral Pulse Rate 80 78 Respiratory Rate 18 18 Blood Pressure 129/53 L 178/64 H Blood Pressure Mean 78 102 Blood Pressure Location Left Arm Left Arm Blood Pressure Position Sitting Supine O2 Sat by Pulse Oximetry 95 96 Oxygen Delivery Method Room Air Room Air Telemetry Type Remote Telemetry Telemetry Monitoring Continues Telemetry Heart Rate 75 Telemetry Strip Reading av paced 10/02/22 07:00 Temperature Temperature Source Pulse Rate Respiratory Rate Blood Pressure Blood Pressure Mean Blood Pressure Location Blood Pressure Position O2 Sat by Pulse Oximetry Oxygen Delivery Method Telemetry Type Remote Telemetry Telemetry Monitoring Continues Telemetry Heart Rate 74 Telemetry Strip Reading AV paced Lab Results Lab Results: Lab Results: Last 24 Hours 10/01/22 10/01/22 05:55 05:20 WBC 6.24 RBC 4.53 Hgb 12.9 Hct 43.8 MCV 96.7 D MCH 28.5 MCHC 29.5 L RDW Coeff of Jaison 15.3 H Plt Count 194 Immature Gran % (Auto) 1.0 Neut % (Auto) 62.3 Lymph % (Auto) 23.9 [place] % (Auto) 8.7 Eos % (Auto) 3.5 Baso % (Auto) 0.6 Neut # (Auto) 3.9 Lymph # (Auto) 1.5 [place] # (Auto) 0.5 Eos # (Auto) 0.2 Baso # (Auto) 0.0 Immature Gran # (Auto) 0.1 Sodium 137.9 Potassium 3.45 L Chloride 104.8 Carbon Dioxide 28.8 Anion Gap 7.75 BUN 16.0 Creatinine 0.93 Estimated GFR (MDRD) 58.00 BUN/Creatinine Ratio 17.20 Glucose 194.7 H Calcium 8.58 Total Bilirubin 0.34 AST 15.2 ALT 10.2 Alkaline Phosphatase 81.1 Total Protein 6.14 L Albumin 3.30 L Globulin 2.84 Albumin/Globulin Ratio 1.16 Additional Comments Additional Comments: I have independently reviewed and interpreted the labs/EKGs/imaging ordered during this hospital stay. I have reviewed outside records that are available in our EMR that pertain to medical stay including imaging/notes/labs from previous visits. Active Medications Active Medications: Medications Generic Name Dose Route Start Last Admin Trade Name Freq PRN Reason Stop Dose Admin Acetaminophen 650 mg 09/29/22 17:33 Acetaminophen 325 Mg Tablet PO Q4H PRN Mild Pain Apixaban 5 mg 09/29/22 21:20 10/01/22 20:35 Apixaban 5 Mg Tab PO 5 mg Q12HR SUKHJINDER Administration Bimatoprost 1 drop 09/29/22 21:30 10/01/22 20:36 Bimatoprost 0.03% 2.5 Ml Opth Naty EACHEYE 1 drop BEDTIME SUKHJINDER Administration Bumetanide 2 mg 09/30/22 11:00 10/01/22 08:28 Bumetanide 1 Mg Tablet PO 2 mg DAILY SUKHJINDER Administration Carvedilol 6.25 mg 09/29/22 21:30 10/01/22 16:43 Carvedilol 6.25 Mg Tablet PO 6.25 mg BIDWM SUKHJINDER Administration Empagliflozin 10 mg 09/29/22 21:30 10/01/22 08:30 Empagliflozin 10 Mg Tablet PO 10 mg DAILY SUKHJINDER Administration Famotidine 40 mg 09/29/22 21:30 10/01/22 08:29 Famotidine 20 Mg Tablet PO 40 mg DAILY SUKHJINDER Administration Ferrous Sulfate 324 mg 09/29/22 22:17 10/01/22 08:29 Ferrous Sulfate 324 Mg Tablet.Dr PO 324 mg DAILY SUKHJINDER Administration Ertapenem 1 gm/ Sodium 100 mls @ 200 mls/hr 10/01/22 10:50 10/02/22 08:06 Chloride IV 10/04/22 10:49 200 mls/hr DAILY SUKHJINDER Administration Insulin Detemir 35 unit 09/30/22 21:00 10/01/22 20:36 Insulin Detemir 100 Units/Ml SUBCUT 35 unit BEDTIME SUKHJINDER Administration Insulin Human Lispro 0 unit 09/29/22 17:42 10/02/22 05:28 Insulin Lispro 100 Unit/Ml (3 Ml) Vial SUBCUT 4 unit PRN PRN Administration Hyperglycemia Protocol Isosorbide Mononitrate 60 mg 09/30/22 09:00 10/01/22 08:29 Isosorbide Mononitrate 30 Mg Tab.Er.24h PO 60 mg DAILY SUKHJINDER Administration Losartan Potassium 100 mg 09/30/22 11:00 10/01/22 08:31 Losartan Potassium 100 Mg Tablet PO 100 mg DAILY SUKHJINDER Administration Pravastatin Sodium 40 mg 09/30/22 06:00 10/02/22 05:28 Pravastatin Sodium 40 Mg Tablet PO 40 mg DAILY LAB SUKHJINDER Administration Saccharomyces Boulardii 250 mg 10/01/22 21:00 10/01/22 20:35 Saccharomyces Boulardii 250 Mg Capsule PO 250 mg BID SUKHJINDER Administration Sodium Chloride 1 syr 09/29/22 15:16 0.9% Sodium Chloride 10 Ml Disp.Syrin IVF PRN PRN To flush IV Plan Plan: A&P: 1. Bacteremia in setting of gram positive cocci - Initial culture showing staph epi, likely contaminant. Will stop vancomycin. Repeat cultures negative so far, but will await 48 hour prelim. 2. Complicated urinary tract infection due to ESBL - UC showing ESBL+ e coli. Continue Invanz 1 gm IV daily. Contact Isolation. 3. SHAUNA, stage I due to dehydration - Resolved Cr at baseline today. Fluids stopped 5/5. Continue home diuretics. 4. Hypokalemia - Resolved. Repeat cmp in AM. 5. Hyperglycemia in setting of DMT2 - Improved. Glucose has been in 400s at home. A1c 8. Levemir increased to 40 units at night. Sliding scale with meals. Will need to address meds upon discharge, patient will need levemir pen prescribed. Also he has a novolog pen already but will need clear instructions and a printed scale. 6. DMT2, chronic - See above 7. Hyperlipidemia - Continue pravastatin. 8. Hypertension - chronic stable. Continue losartan, coreg, isosorbide. 9. Paroxysmal a fib - chronic, stable. Continue eliquis. 10. Heart failure with mildly reduced EF - EF 45% on echo 08/18. Continue bumetanide. Monitor fluid status. Continue BB and arb. 11. Asthenia, acute on chronic - PT/OT eval. Patient feels she will improve enough to go home. She does not want to consider a assisted at this time. is also against a assisted and feel they can manage at home. She will require a new order to resume home health upon discharge. 12. Elevated troponins, likely NSTEMI type II in setting of renal disease and infection - Trops trended down. Patient denies chest pain. EKG at baseline. DVT Prophylaxis: Continue Eliquis Will discuss possibility of swing bed candidate with CM and PT/OT tomorrow as patient will require more therapy to be safe for discharge and prolonged IM/IV antibiotics. Discussed Plan of Care with Dr. Benjamin. Review Statement Review Statement: I have personally discussed and reviewed the patient's visit/currently labs/imaging/decision making with Dr. Benjamin, my supervising attending. Greater that 50 minutes spent with patient, 50% of the time spent with this patient was devoted to counseling and coordination of care.
[2022-10-02] MEDS: COREG PO SCH ×2 (09:30→17:04)
[2022-10-02] MEDS: JARDIANCE PO SCH (09:30)
[2022-10-02] MEDS: ELIQUIS PO SCH ×2 (09:30→20:16)
[2022-10-02] MEDS: FERROUS SULFATE PO SCH (09:30)
[2022-10-02 13:04] LABS: BASOPHILS % (AUTO) 0.3 % (0.0-3.0); EOSINOPHILS # (AUTO) 0.3 K/ul (0.0-0.7); EOSINOPHILS % (AUTO) 3.9 % (0.0-7.0); HEMATOCRIT 41.2 % (37.0-47.0); HEMOGLOBIN 12.8 g/dl (12.0-16.0); IMMATURE GRANULOCYTE % (AUTO) 0.6 % (0.0-5.0); LYMPHOCYTES # (AUTO) 1.5 K/uL (0.60-3.4); LYMPHOCYTES % (AUTO) 23.6 (10.0-50.0); MEAN CORPUSCULAR HEMOGLOBIN 28.4 pg (27.0-31.0); MEAN CORPUSCULAR HGB CONC 31.1 (31.8-35.4); MEAN CORPUSCULAR VOLUME 91.6 fl (81.0-99.0); MONOCYTES # (AUTO) 0.5 K/uL (0.4-2.0); MONOCYTES % (AUTO) 7.9 (0-10); NEUTROPHILS # (AUTO) 4.1 K/ul (2.0-6.9); NEUTROPHILS % (AUTO) 63.7 % (42.2-75.2); PLATELET COUNT 241 10^3/uL (140-440); RDW COEFFICIENT OF VARIATION 15.1 % (11.6-14.8); WHITE BLOOD COUNT 6.48 K/ul (4.6-10.2)
[2022-10-02 13:30] LABS: ALANINE AMINOTRANSFERASE 10.4 U/L (0-35); ALBUMIN 3.34 g/dL (3.5-5.0); ALKALINE PHOSPHATASE 78.6 U/L (53-141); BILIRUBIN,TOTAL 0.27 mg/dL (0.2-1.3); BLOOD UREA NITROGEN 15.3 mg/dL (7-17); CALCIUM 8.69 mg/dL (8.4-10.2); CARBON DIOXIDE 27.1 mmol/L (22-30.0); CHLORIDE 101.3 mmol/L (98-107); CREATININE 0.87 mg/dL (0.60-1.30); GLUCOSE 287.4 mg/dL (74-106); POTASSIUM 3.38 mmol/L (3.5-5.1); SODIUM 134.7 mmol/L (134.5-145); TOTAL PROTEIN 6.27 g/dL (6.3-8.2)
[2022-10-02] MEDS ORDERED: K-DUR PO ONE (13:42)
[2022-10-02] MEDS: LUMIGAN 0.03% EACHEYE SCH (20:15)
[2022-10-02] MEDS: LEVEMIR SUBCUT SCH (21:00)
[2022-10-03 05:04] LABS: BASOPHILS % (AUTO) 0.3 % (0.0-3.0); EOSINOPHILS # (AUTO) 0.3 K/ul (0.0-0.7); EOSINOPHILS % (AUTO) 4.2 % (0.0-7.0); HEMATOCRIT 41.2 % (37.0-47.0); HEMOGLOBIN 12.5 g/dl (12.0-16.0); IMMATURE GRANULOCYTE # (AUTO) 0.1 (0.0-1.0); IMMATURE GRANULOCYTE % (AUTO) 0.9 % (0.0-5.0); LYMPHOCYTES # (AUTO) 1.8 K/uL (0.60-3.4); LYMPHOCYTES % (AUTO) 26.2 (10.0-50.0); MEAN CORPUSCULAR HEMOGLOBIN 27.9 pg (27.0-31.0); MEAN CORPUSCULAR HGB CONC 30.3 (31.8-35.4); MONOCYTES # (AUTO) 0.7 K/uL (0.4-2.0); MONOCYTES % (AUTO) 9.8 (0-10); NEUTROPHILS % (AUTO) 58.6 % (42.2-75.2); PLATELET COUNT 243 10^3/uL (140-440); RDW COEFFICIENT OF VARIATION 15.2 % (11.6-14.8); RED BLOOD COUNT 4.48 10^6/ul (4.20-5.40); WHITE BLOOD COUNT 6.84 K/ul (4.6-10.2)
[2022-10-03 05:15] LABS: ALANINE AMINOTRANSFERASE 9.3 U/L (0-35); ALBUMIN 3.25 g/dL (3.5-5.0); ALKALINE PHOSPHATASE 76.6 U/L (53-141); ASPARTATE AMINO TRANSFERASE 15.3 U/L (14-36); BILIRUBIN,TOTAL 0.34 mg/dL (0.2-1.3); BLOOD UREA NITROGEN 15.8 mg/dL (7-17); CALCIUM 8.79 mg/dL (8.4-10.2); CHLORIDE 102.5 mmol/L (98-107); CREATININE 0.93 mg/dL (0.60-1.30); GLUCOSE 144.3 mg/dL (74-106); POTASSIUM 3.7 mmol/L (3.5-5.1); SODIUM 138.1 mmol/L (134.5-145); TOTAL PROTEIN 6.08 g/dL (6.3-8.2)
[2022-10-03] MEDS: PRAVACHOL PO SCH (05:28)
[2022-10-03] MEDS: HUMALOG SUBCUT PRN ×4 (05:40→20:35)
[2022-10-03] MEDS ORDERED: INVANZ ONE (08:02)
[2022-10-03] MEDS: INVANZ 1 GM in SODIUM CHLORIDE 100ML 100 ML IV SCH (08:35)
[2022-10-03] MEDS: IMDUR PO SCH (08:38)
[2022-10-03] MEDS: COREG PO SCH ×2 (08:40→17:28)
[2022-10-03] MEDS: PEPCID PO SCH (08:41)
[2022-10-03] MEDS: BUMEX PO SCH (08:41)
[2022-10-03] MEDS: JARDIANCE PO SCH (08:41)
[2022-10-03] MEDS: FERROUS SULFATE PO SCH (08:41)
[2022-10-03] MEDS: COZAAR PO SCH (08:41)
[2022-10-03] MEDS: ELIQUIS PO SCH ×2 (08:42→20:34)
[2022-10-03] MEDS: FLORASTOR PO SCH ×2 (08:42→20:34)
--- NOTE | 2022-10-03 11:26 | PCM.PROG ---
Date/Time Seen Date Seen by Provider: 10/03/22 Time Seen by Provider: 08:45 Provider [facility], [facility] Chief Complaint Chief Complaint: SHAUNA, ACUTE HYPERGLYCEMIA, ELEVATED TROPONIN Subjective Subjective: No fever or events overnight. Reports feeling better today. Still requiring 2 assist on ambulation. Objective Appearance: Positive No Apparent Distress, Alert and Oriented x3 and Ill- Appearing Chest/Lungs: Positive Symmetrical With Equal Breath Sounds, Clear to Auscultation Bilaterally and Good Air Movement all 4 Lung [place] Heart: Positive RRR, Pulses Normal, No S3 Auscultated and No S4 Auscultated GI/: Positive Soft, Nontender, Bowel Sounds Normal, No Distention and No Organomegaly Musculoskeletal: Positive Not Examined Neurological: Positive Sensation Intact, Motor intact, Alert and Oriented; Negative Muscle Strength 5/5 in Upper and Lower Extremities Bilaterally (generalized weakness) Vital Signs Vital Signs: Vital Signs: Last 24 Hours 10/02/22 14:00 10/02/22 13:00 10/02/22 19:00 Temperature 96.3 F L Temperature Source Temporal Artery Scan Pulse Rate 80 Pulse Rate [Apical] Respiratory Rate 14 Blood Pressure 126/55 L Blood Pressure Mean 78 Blood Pressure Location Left Arm Blood Pressure Position Sitting O2 Sat by Pulse Oximetry 98 Oxygen Delivery Method Room Air Telemetry Type Remote Telemetry Remote Telemetry Telemetry Monitoring Continues Continues Irregular Telemetry Rate (Approximate) Telemetry Heart Rate 75 81 EKG QRS Interval 0.15 H EKG QT Interval 0.74 H Telemetry Strip Reading AV paced paced rhythm 10/02/22 20:00 10/02/22 22:00 10/03/22 01:00 Temperature 97.0 F L Temperature Source Temporal Artery Scan Pulse Rate 79 Pulse Rate [Apical] 74 Respiratory Rate 18 20 Blood Pressure 130/66 Blood Pressure Mean 87 Blood Pressure Location Right Arm Blood Pressure Position O2 Sat by Pulse Oximetry 96 Oxygen Delivery Method Room Air Telemetry Type Remote Telemetry Telemetry Monitoring Continues Irregular Telemetry Rate (Approximate) 70-80 BPM Telemetry Heart Rate 79 EKG QRS Interval 0.12 H EKG QT Interval Telemetry Strip Reading AV Paced rhythm ; 10/03/22 05:55 10/03/22 07:00 10/03/22 07:49 Temperature 98.0 F Temperature Source Temporal Artery Scan Pulse Rate 78 Pulse Rate [Apical] Respiratory Rate 18 16 Blood Pressure 140/69 Blood Pressure Mean 92 Blood Pressure Location Left Arm Blood Pressure Position Supine O2 Sat by Pulse Oximetry 97 Oxygen Delivery Method Room Air Telemetry Type Remote Telemetry Telemetry Monitoring Continues Irregular Telemetry Rate (Approximate) Telemetry Heart Rate 80 EKG QRS Interval EKG QT Interval Telemetry Strip Reading AV PACED Lab Results Lab Results: Lab Results: Last 24 Hours 10/03/22 10/02/22 04:50 12:59 WBC 6.84 6.48 RBC 4.48 4.50 Hgb 12.5 12.8 Hct 41.2 41.2 MCV 92.0 91.6 D MCH 27.9 28.4 MCHC 30.3 L 31.1 L RDW Coeff of Jaison 15.2 H 15.1 H Plt Count 243 241 Immature Gran % (Auto) 0.9 0.6 Neut % (Auto) 58.6 63.7 Lymph % (Auto) 26.2 23.6 [place] % (Auto) 9.8 7.9 Eos % (Auto) 4.2 3.9 Baso % (Auto) 0.3 0.3 Neut # (Auto) 4.0 4.1 Lymph # (Auto) 1.8 1.5 [place] # (Auto) 0.7 0.5 Eos # (Auto) 0.3 0.3 Baso # (Auto) 0.0 0.0 Immature Gran # (Auto) 0.1 0.0 Sodium 138.1 134.7 Potassium 3.70 3.38 L Chloride 102.5 101.3 Carbon Dioxide 31.0 H 27.1 Anion Gap 8.30 9.68 BUN 15.8 15.3 Creatinine 0.93 0.87 Estimated GFR (MDRD) 58.00 62.00 BUN/Creatinine Ratio 16.98 17.58 Glucose 144.3 H D 287.4 H Calcium 8.79 8.69 Total Bilirubin 0.34 0.27 AST 15.3 17.0 ALT 9.3 10.4 Alkaline Phosphatase 76.6 78.6 Total Protein 6.08 L 6.27 L Albumin 3.25 L 3.34 L Globulin 2.83 2.93 Albumin/Globulin Ratio 1.14 1.13 Additional Comments Additional Comments: I have independently reviewed and interpreted the labs/EKGs/imaging ordered during this hospital stay. I have reviewed outside records that are available in our EMR that pertain to medical stay including imaging/notes/labs from previous visits. Active Medications Active Medications: Medications Generic Name Dose Route Start Last Admin Trade Name Fretrino PRN Reason Stop Dose Admin Acetaminophen 650 mg 09/29/22 17:33 Acetaminophen 325 Mg Tablet PO Q4H PRN Mild Pain Apixaban 5 mg 09/29/22 21:20 10/03/22 08:42 Apixaban 5 Mg Tab PO 5 mg Q12HR SUKHJINDER Administration Bimatoprost 1 drop 09/29/22 21:30 10/02/22 20:15 Bimatoprost 0.03% 2.5 Ml Opth Naty EACHEYE 1 drop BEDTIME SUKHJINDER Administration Bumetanide 2 mg 09/30/22 11:00 10/03/22 08:41 Bumetanide 1 Mg Tablet PO 2 mg DAILY SUKHJINDER Administration Carvedilol 6.25 mg 09/29/22 21:30 10/03/22 08:40 Carvedilol 6.25 Mg Tablet PO 6.25 mg BIDWM SUKHJINDER Administration Empagliflozin 10 mg 09/29/22 21:30 10/03/22 08:41 Empagliflozin 10 Mg Tablet PO 10 mg DAILY SUKHJINDER Administration Famotidine 40 mg 09/29/22 21:30 10/03/22 08:41 Famotidine 20 Mg Tablet PO 40 mg DAILY SUKHJINDER Administration Ferrous Sulfate 324 mg 09/29/22 22:17 10/03/22 08:41 Ferrous Sulfate 324 Mg Tablet. PO 324 mg DAILY SUKHJINDER Administration Ertapenem 1 gm/ Sodium 100 mls @ 200 mls/hr 10/01/22 10:50 10/03/22 08:35 Chloride IV 10/04/22 10:49 200 mls/hr DAILY SUKHJINDER Administration Insulin Detemir 40 unit 10/02/22 21:00 10/02/22 21:00 Insulin Detemir 100 Units/Ml SUBCUT 40 unit BEDTIME SUKHJINDER Administration Insulin Human Lispro 0 unit 09/29/22 17:42 10/03/22 05:40 Insulin Lispro 100 Unit/Ml (3 Ml) Vial SUBCUT 3 unit PRN PRN Administration Hyperglycemia Protocol Isosorbide Mononitrate 60 mg 09/30/22 09:00 10/03/22 08:38 Isosorbide Mononitrate 30 Mg Tab.Er.24h PO 60 mg DAILY SUKHJINDER Administration Losartan Potassium 100 mg 09/30/22 11:00 10/03/22 08:41 Losartan Potassium 100 Mg Tablet PO 100 mg DAILY SUKHJINDER Administration Pravastatin Sodium 40 mg 09/30/22 06:00 10/03/22 05:28 Pravastatin Sodium 40 Mg Tablet PO 40 mg DAILY LAB SUKHJINDER Administration Saccharomyces Boulardii 250 mg 10/01/22 21:00 10/03/22 08:42 Saccharomyces Boulardii 250 Mg Capsule PO 250 mg BID SUKHJINDER Administration Sodium Chloride 1 syr 09/29/22 15:16 0.9% Sodium Chloride 10 Ml Disp.Syrin IVF PRN PRN To flush IV Plan Plan: 1. Bacteremia in setting of gram positive cocci - Initial culture showing staph epi, likely contaminant. Stopped vancomycin. Repeat cultures negative. 2. Complicated urinary tract infection due to ESBL - UC showing ESBL+ e coli. Continue Invanz 1 gm IV daily. Plan to d/c with IM Invanz to complete duration of therapy. Contact Isolation. 3. SHAUNA, stage I due to dehydration - Resolved Cr at baseline. Fluids stopped 09/30. Continue home diuretics. 4. Hypokalemia - Resolved. Monitor 5. Hyperglycemia in setting of DMT2 - Improved. Glucose has been in 400s at home. A1c 8. Levemir increased to 40 units at night. Sliding scale with meals. Will need to address meds upon discharge, patient will need levemir pen prescribed. Also he has a novolog pen already but will need clear instructions and a printed scale. 6. DMT2, chronic - See above 7. Hyperlipidemia - Continue pravastatin. 8. Hypertension - chronic stable. Continue losartan, coreg, isosorbide. 9. Paroxysmal a fib - chronic, stable. Continue eliquis. 10. Heart failure with mildly reduced EF - EF 45% on echo 08/18. Continue bumetanide. Monitor fluid status. Continue BB and arb. 11. Asthenia, acute on chronic - PT/OT eval. Pt reports max assist. Has limited skilled days left. Patient feels she will improve enough to go home. She does not want to consider a penitentiary at this time. is also against a penitentiary and feel they can manage at home. She will require a new order to resume home health upon discharge. 12. Elevated troponins, likely NSTEMI type II in setting of renal disease and infection - Trops trended down. Patient denies chest pain. EKG at baseline. DVT Prophylaxis: Continue Eliquis Disposition: Plan to d/c home tomorrow per patient and family request. Bedside commode ordered. Home health is able to give IM Invanz to patient starting Monday. Review Statement Review Statement: I have personally discussed and reviewed the patient's visit/currently labs/imaging/decision making with Dr. Benjamin, my supervising attending. Greater that 50 minutes spent with patient, 50% of the time spent with this patient was devoted to counseling and coordination of care.
[2022-10-03] MEDS: LEVEMIR SUBCUT SCH (20:36)
[2022-10-03] MEDS: LUMIGAN 0.03% EACHEYE SCH (20:38)
[2022-10-04 05:17] VITALS: BP 124/64; TEMP 97.1
[2022-10-04 05:35] LABS: BASOPHILS % (AUTO) 0.4 % (0.0-3.0); EOSINOPHILS # (AUTO) 0.3 K/ul (0.0-0.7); EOSINOPHILS % (AUTO) 3.7 % (0.0-7.0); HEMATOCRIT 39.9 % (37.0-47.0); HEMOGLOBIN 12.2 g/dl (12.0-16.0); IMMATURE GRANULOCYTE # (AUTO) 0.1 (0.0-1.0); IMMATURE GRANULOCYTE % (AUTO) 0.9 % (0.0-5.0); LYMPHOCYTES # (AUTO) 1.8 K/uL (0.60-3.4); LYMPHOCYTES % (AUTO) 25.4 (10.0-50.0); MEAN CORPUSCULAR HGB CONC 30.6 (31.8-35.4); MEAN CORPUSCULAR VOLUME 91.7 fl (81.0-99.0); MONOCYTES # (AUTO) 0.6 K/uL (0.4-2.0); MONOCYTES % (AUTO) 9.2 (0-10); NEUTROPHILS # (AUTO) 4.2 K/ul (2.0-6.9); NEUTROPHILS % (AUTO) 60.4 % (42.2-75.2); PLATELET COUNT 240 10^3/uL (140-440); RDW COEFFICIENT OF VARIATION 15.3 % (11.6-14.8); RED BLOOD COUNT 4.35 10^6/ul (4.20-5.40); WHITE BLOOD COUNT 6.98 K/ul (4.6-10.2)
[2022-10-04 05:51] LABS: ALANINE AMINOTRANSFERASE 9.3 U/L (0-35); ALBUMIN 3.27 g/dL (3.5-5.0); ASPARTATE AMINO TRANSFERASE 14.8 U/L (14-36); BILIRUBIN,TOTAL 0.26 mg/dL (0.2-1.3); BLOOD UREA NITROGEN 17.1 mg/dL (7-17); CALCIUM 8.88 mg/dL (8.4-10.2); CHLORIDE 101.2 mmol/L (98-107); CREATININE 1.06 mg/dL (0.60-1.30); GLUCOSE 168.5 mg/dL (74-106); POTASSIUM 3.37 mmol/L (3.5-5.1); SODIUM 137.1 mmol/L (134.5-145); TOTAL PROTEIN 6.2 g/dL (6.3-8.2)
[2022-10-04] MEDS: HUMALOG SUBCUT PRN ×2 (06:13→12:11)
[2022-10-04] MEDS: PRAVACHOL PO SCH (06:13)
[2022-10-04] MEDS ORDERED: INVANZ ONE (08:09)
[2022-10-04] MEDS: ELIQUIS PO SCH (09:30)
[2022-10-04] MEDS: IMDUR PO SCH (09:41)
[2022-10-04] MEDS: BUMEX PO SCH (09:41)
[2022-10-04] MEDS: COREG PO SCH (09:41)
[2022-10-04] MEDS: FERROUS SULFATE PO SCH (09:42)
[2022-10-04] MEDS: COZAAR PO SCH (09:42)
[2022-10-04] MEDS: FLORASTOR PO SCH (09:42)
[2022-10-04] MEDS: JARDIANCE PO SCH (09:42)
[2022-10-04] MEDS: PEPCID PO SCH (09:43)
[2022-10-04] MEDS: INVANZ 1 GM in SODIUM CHLORIDE 100ML 100 ML IV SCH (09:44)
--- NOTE | 2022-10-04 11:48 | DCSUM ---
Hospital Provider Hospital Provider: MICHAEL TRENT, [facility] Primary Care Physician Primary Care Physician: EVELYN STINSON MD Summary of History and Physical Summary of History and Physical: Patient is an 82 year old female with pmhx of DMT2, history of KS/CAD, PAF, COPD, CHF, glaucoma, osteoarthritis, chronic kidney disease, hyperlipidemia, and hypertension who presented to the ER for weakness and elevated blood sugars. Her medications have been adjusted in the last few months and her sugars have been consistently in the 400s. Patient states she is typically in the 100s. She felt very weak yesterday. States she was just recently treated for pneumonia. She also complains of urinary frequency. Denies chest pain. Per ERP she required significant help out of vehicle and into the cot. In the ER she was found to have glucose in the 400s, mildly elevated trop and bnp, normal CXR, SHAUNA with dehydration, and a UTI. She was given fluids and rocephin. She was admitted to obs on medsurg. 1. Bacteremia in setting of gram positive cocci - Will add vanc to rocephin. Await final. Repeat blood cultures x2 today. 2. Urinary tract infection - UC showing heavy growth of gram negative. Will continue rocephin. 3. SHAUNA, stage I due to dehydration - Improved. Cr at baseline today. Will stop fluids. Will continue home diuretics. 4. Hypokalemia - Replaced. Repeat cmp in AM. 5. Hyperglycemia in setting of DMT2 - Glucose has been in 400s. A1c 8. Glucose improved today in 200s with sliding scale. Concern for adding sliding scale at home as it seems patient and are having difficulty with her current regimen. Will increase her home levemir to 35 units. 6. DMT2, chronic - See above 7. Hyperlipidemia - Continue pravastatin. 8. Hypertension - chronic stable. Continue losartan, coreg, isosorbide. 9. Paroxysmal a fib - chronic, stable. Continue eliquis. 10. Heart failure with mildly reduced EF - EF 45% on echo 08/18. Will stop fluids and continue bumetanide. Monitor fluid status. Continue BB and arb. 11. Asthenia, acute on chronic - PT/OT eval. Patient feels she will improve enough to go home. She does not want to consider a half-way at [facility]. Hospital Course Subjective: Patient was admitted for SHAUNA and UTI. SHAUNA resolved. She was started on rocephin and vancomycin initially. Blood cultures x 4 negative. Urine culture revealed esbl+ E. coli in the urine. Vancomycin and rocephin was d/c and invanz was started. Has been receiving PT/OT since admission and has not shown any improvement in ability to perform ADLs on her own or even with 1 assist. Discussed extensively with patient, family, nursing staff, and case management the safety hazard of the patient returning home with . Patient is unable to stand without more than 1 assist at this time. and initially were not agreeable for the patient to go to half-way at this time. However, after much discussion and trial of standing with only, they decided it would be best. Unfortunately, she has used all of her skilled care days in the half-way and only has 1 left at this time. states they cannot afford to pay the co- pay for the patient to go into the half-way. He has decided to take her home at this time due to inability to afford care and will bring her back to the ER for placement if he is unable to care for her at home. They have home health in place and will be there daily to give IM antibiotics as well as Pt/Ot. Appearance: Pleasant, No Apparent Distress, Alert, Ill-appearing and Well- nourished HEENT: MMM and Supple CVS: No Murmur, No Rubs, No Gallop and No JVD Abdomen: Soft, Non-Tender and No Distention Respiratory: No Dyspnea Extremities: Other (weakness) Vital Signs: Most Recent Vital Signs Temperature 97.1 F L 10/04/22 05:07 Temperature Source Temporal Artery Scan 10/04/22 05:07 Temperature Source Infrared 09/29/22 15:06 Pulse Rate 74 10/04/22 05:07 Respiratory Rate 18 10/04/22 08:00 Blood Pressure 124/64 10/04/22 05:07 Blood Pressure Mean 84 10/04/22 05:07 Blood Pressure Left Arm 162/75 09/29/22 18:30 Blood Pressure Location Left Arm 10/04/22 05:07 Blood Pressure Position Supine 10/04/22 05:07 O2 Sat by Pulse Oximetry 98 10/04/22 05:07 Oxygen Delivery Method Room Air 10/04/22 08:00 Height 5 ft 7 in 09/30/22 07:14 Weight 253 lb 09/30/22 07:14 Telemetry Type Remote Telemetry 10/04/22 07:00 Telemetry Monitoring Continues 10/04/22 07:00 Irregular Telemetry Rate (Approximate) 70-80 BPM 10/04/22 01:00 Telemetry Heart Rate 76 10/04/22 07:00 Telemetry SPO2 94 11/15/18 01:00 EKG QRS Interval 0.14 H 10/04/22 01:00 EKG QT Interval 0.39 10/04/22 01:00 Telemetry Strip Reading AV PACED 10/04/22 07:00 Lab Results Last 24 Hours: 10/04/22 04:53 WBC 6.98 RBC 4.35 Hgb 12.2 Hct 39.9 MCV 91.7 MCH 28.0 MCHC 30.6 L RDW Coeff of Jaison 15.3 H Plt Count 240 Immature Gran % (Auto) 0.9 Neut % (Auto) 60.4 Lymph % (Auto) 25.4 [place] % (Auto) 9.2 Eos % (Auto) 3.7 Baso % (Auto) 0.4 Neut # (Auto) 4.2 Lymph # (Auto) 1.8 [place] # (Auto) 0.6 Eos # (Auto) 0.3 Baso # (Auto) 0.0 Immature Gran # (Auto) 0.1 Sodium 137.1 Potassium 3.37 L Chloride 101.2 Carbon Dioxide 31.0 H Anion Gap 8.27 BUN 17.1 H Creatinine 1.06 Estimated GFR (MDRD) 50.00 BUN/Creatinine Ratio 16.13 Glucose 168.5 H Calcium 8.88 Total Bilirubin 0.26 AST 14.8 ALT 9.3 Alkaline Phosphatase 80.0 Total Protein 6.20 L Albumin 3.27 L Globulin 2.93 Albumin/Globulin Ratio 1.11 Discharge Instructions Discharge Planning: Discharge Planning > 40 minutes Diabetic Diet Activity as tolerated with assistance. Home health as scheduled. Invanz 1G IM daily x 4 days Follow-up with PCP on Monday or beginning of next week. Medications Given This Visit: Medications Generic Name Dose Route Start Last Admin Trade Name Freq PRN Reason Stop Dose Admin Acetaminophen 650 mg 09/29/22 17:33 Acetaminophen 325 Mg Tablet PO Q4H PRN Mild Pain Apixaban 5 mg 09/29/22 21:20 10/04/22 09:30 Apixaban 5 Mg Tab PO 5 mg Q12HR SUKHJINDER Administration Bimatoprost 1 drop 09/29/22 21:30 10/03/22 20:38 Bimatoprost 0.03% 2.5 Ml Opth Naty EACHEYE 1 drop BEDTIME SUKHJINDER Administration Bumetanide 2 mg 09/30/22 11:00 10/04/22 09:41 Bumetanide 1 Mg Tablet PO 2 mg DAILY SUKHJINDER Administration Carvedilol 6.25 mg 09/29/22 21:30 10/04/22 09:41 Carvedilol 6.25 Mg Tablet PO 6.25 mg BIDWM SUKHJINDER Administration Empagliflozin 10 mg 09/29/22 21:30 10/04/22 09:42 Empagliflozin 10 Mg Tablet PO 10 mg DAILY SUKHJINDER Administration Famotidine 40 mg 09/29/22 21:30 10/04/22 09:43 Famotidine 20 Mg Tablet PO 40 mg DAILY SUKHJINDER Administration Ferrous Sulfate 324 mg 09/29/22 22:17 10/04/22 09:42 Ferrous Sulfate 324 Mg Tablet.Dr PO 324 mg DAILY SUKHJINDER Administration Insulin Detemir 40 unit 10/02/22 21:00 10/03/22 20:36 Insulin Detemir 100 Units/Ml SUBCUT 40 unit BEDTIME SUKHJINDER Administration Insulin Human Lispro 0 unit 09/29/22 17:42 10/04/22 06:13 Insulin Lispro 100 Unit/Ml (3 Ml) Vial SUBCUT 3 unit PRN PRN Administration Hyperglycemia Protocol Isosorbide Mononitrate 60 mg 09/30/22 09:00 10/04/22 09:41 Isosorbide Mononitrate 30 Mg Tab.Er.24h PO 60 mg DAILY SUKHJINDER Administration Losartan Potassium 100 mg 09/30/22 11:00 10/04/22 09:42 Losartan Potassium 100 Mg Tablet PO 100 mg DAILY SUKHJINDER Administration Pravastatin Sodium 40 mg 09/30/22 06:00 10/04/22 06:13 Pravastatin Sodium 40 Mg Tablet PO 40 mg DAILY LAB SUKHJINDER Administration Saccharomyces Boulardii 250 mg 10/01/22 21:00 10/04/22 09:42 Saccharomyces Boulardii 250 Mg Capsule PO 250 mg BID SUKHJINDER Administration Sodium Chloride 1 syr 10/03/22 21:00 10/04/22 09:46 0.9% Sodium Chloride 10 Ml Disp.Syrin IVF 1 syr Q8HR SUKHJINDER Administration Medications Given This Visit: Medications at Discharge (Home Meds & RX) bimatoprost 0.03 % eye drops (Lumigan) 0.01 drp BOTHEYES BEDTIME 07/05/18 nitroglycerin 0.4 mg sublingual tablet (Nitrostat) 0.4 mg sublingual Q5MIN X 3 DOSES PRN Chest Pain ##60 07/05/22 polyethylene glycol 3350 17 gram oral powder packet (Miralax) 17 g PO DAILY 08/18/22 apixaban 5 mg tablet (Eliquis) 5 mg PO Q12HR #60 tabs 09/22/22 bumetanide 2 mg tablet 2 mg PO QDAY #30 tabs 09/22/22 carvedilol 6.25 mg tablet (Coreg) 6.25 mg PO BID #60 tabs 09/22/22 empagliflozin 10 mg tablet (Jardiance) 10 mg PO QDAY #30 tabs 09/22/22 famotidine 40 mg tablet 40 mg PO QDAY #30 tabs 09/22/22 isosorbide mononitrate 60 mg tablet,extended release 24 hr 60 mg PO DAILY #30 tabs 09/22/22 losartan 100 mg tablet 100 mg PO DAILY #30 tabs 09/22/22 mirabegron 50 mg tablet,extended release 24 hr (Myrbetriq) 50 mg PO QDAY #30 tabs 09/22/22 oxybutynin chloride 5 mg tablet See Rx Instructions .Route .COMPLEX #30 tabs 09/22/22 pravastatin 40 mg tablet 40 mg PO DAILY LAB #30 tabs 09/22/22 ferrous sulfate 325 mg (65 mg iron) tablet,delayed release 325 mg PO QDAY #30 tabs 09/23/22 insulin detemir U-100 100 unit/mL subcutaneous solution (Levemir U-100 Insulin) 30 unit (0.3 mL) subcut QHS #10 mL 09/23/22 Discharge Plan Discharge Discharge Orders: Discharge Patient (ONCE); Ordered 10/04/22 Ordered By: CATARINO BRUNER Activity Restrictions/Additional Instructions: DISCHARGE HOME WITH HOME HEALTH PER DR. STINSON / KAREN HERRMANN NP DIET: Diabetic ACTIVITY: As tolerated with assist MEDICATIONS: Invanz 1G IM daily x 4 days Levemir 35 units subcut at bedtime (this is now a pen) Humalog lispro subcut with meals prn with sliding scale (this is a pen) FOLLOW UP APPOINTMENT: September AT 10AM WITH DR. STINSON'S OFFICE. SHOULD YOU HAVE ANY QUESTIONS OR NEED TO RESCHEDULE YOU CAN CONTACT THEIR OFFICE AT . HOME HEALTH: [facility] Instructions: Urinary Tract Infection in Women (GEN) Patient Disposition: HOME WITH FAMILY CARE Prescriptions: New Levemir FlexPen 100 unit/mL (3 mL) insulin pen 35 unit subcut BEDTIME Qty: 15 0RF insulin lispro [Humalog KwikPen Insulin] 100 unit/mL insulin pen 1 sliding scale dose subcut TIDWM 30 Days Qty: 15 0RF ertapenem [Invanz] 1 gram recon soln 1 g IM DAILY Qty: 4 0RF lidocaine (PF) [Xylocaine-MPF] 10 mg/mL (1 %) solution 3.2 ml Infiltration ONCE Qty: 20 0RF Rx Instructions: mix with invanz for administration IM Continued ferrous sulfate 325 mg (65 mg iron) tablet,delayed release (DR/EC) 325 mg PO QDAY Qty: 30 0RF bimatoprost [Lumigan] 1 DROP drops 0.01 drp BOTHEYES BEDTIME polyethylene glycol 3350 [Miralax] 17 gram Powder In Packet 17 g PO DAILY nitroglycerin [Nitrostat] 0.4 mg tablet, sublingual 0.4 mg sublingual Q5MIN X 3 DOSES PRN (Reason: Chest Pain) Qty: 60 2RF Rx Instructions: THIS IS NOT A NEW PRESCRIPTION. THIS IS INSTRUCTION FOR AN EXISTING HOME MEDICATION Eliquis 5 mg tablet 5 mg PO Q12HR Qty: 60 2RF Rx Instructions: TAKE ONE TABLET EVERY TWELVE HOURS carvedilol [Coreg] 6.25 mg tablet 6.25 mg PO BID Qty: 60 2RF Rx Instructions: must administer with a meal/food isosorbide mononitrate 60 mg tablet extended release 24 hr 60 mg PO DAILY Qty: 30 2RF Rx Instructions: TAKE ONE TABLET DAILY losartan 100 mg tablet 100 mg PO DAILY Qty: 30 2RF Rx Instructions: TAKE ONE TABLET DAILY Myrbetriq 50 mg tablet extended release 24 hr 50 mg PO QDAY Qty: 30 2RF oxybutynin chloride 5 mg tablet See Rx Instructions .ROUTE .COMPLEX Qty: 30 1RF Dose Instruction: TAKE ONE TABLET DAILY Rx Instructions: TAKE ONE TABLET DAILY bumetanide 2 mg tablet 2 mg PO QDAY Qty: 30 2RF Jardiance 10 mg tablet 10 mg PO QDAY Qty: 30 2RF famotidine 40 mg tablet 40 mg PO QDAY Qty: 30 2RF pravastatin 40 mg tablet 40 mg PO DAILY LAB Qty: 30 2RF Discontinued Levemir U-100 Insulin 100 unit/mL solution 30 unit subcut QHS Qty: 10 5RF Did you review [place] [employer] for ALL controlled substances?: No Discussed opioids are addictive and Narcan is available by prescription or from pharmacy.: No Condition: Stable
== END 2022-10-04 14:16 | disposition home or self-care (01) | DRG 638 ==
LOC: ED 15:01 → MEDSURG A 15:01 → INTOOBSV 16:32 → OBSVTOIN 17:04 → MEDSURG A 18:26 → UNDODISOB 10-04 14:16
PROVIDERS: ADMIT Physician Assistant; ATTEND Nurse Practitioner Family
DX: Z87.440 Personal history of urinary (tract) infections; N18.2 Chronic kidney disease, stage 2 (mild); Z20.822 Contact with and (suspected) exposure to COVID-19; E86.0 Dehydration; D51.9 Vitamin B12 deficiency anemia, unspecified; R78.81 Bacteremia; R74.8 Abnormal levels of other serum enzymes; Z79.4 Long term (current) use of insulin; E11.22 Type 2 diabetes mellitus with diabetic chronic kidney disease; Z68.38 Body mass index [BMI] 38.0-38.9, adult; R82.90 Unspecified abnormal findings in urine; D63.1 Anemia in chronic kidney disease; E11.69 Type 2 diabetes mellitus with other specified complication; Z79.01 Long term (current) use of anticoagulants; E66.01 Morbid (severe) obesity due to excess calories; R06.01 Orthopnea; I48.0 Paroxysmal atrial fibrillation; I25.10 Atherosclerotic heart disease of native coronary artery without angina pectoris; I12.9 Hypertensive chronic kidney disease with stage 1 through stage 4 chronic kidney disease, or unspecified chronic kidney disease; Z95.0 Presence of cardiac pacemaker; Z79.899 Other long term (current) drug therapy; E78.5 Hyperlipidemia, unspecified; E87.6 Hypokalemia; J44.9 Chronic obstructive pulmonary disease, unspecified; Z86.79 Personal history of other diseases of the circulatory system; I49.5 Sick sinus syndrome; E11.65 Type 2 diabetes mellitus with hyperglycemia; R29.898 Other symptoms and signs involving the musculoskeletal system; I25.2 Old myocardial infarction; N17.9 Acute kidney failure, unspecified; R26.81 Unsteadiness on feet; R27.0 Ataxia, unspecified; R53.1 Weakness; Z51.81 Encounter for therapeutic drug level monitoring; M16.0 Bilateral primary osteoarthritis of hip